=== PATIENT | female | born 1940 | race Caucasian/White ===

== ENCOUNTER 2016-04-24 13:36 | Inpatient (IN) | payer MEDICARE, MEDICAID ==
[~2016-04-24] VITALS: Ht 165.1 cm; Wt 87.0 kg
[~2016-04-24 13:36] MED LIST: ABIL5TAB6 PO; AMLO5 PO; ASPI81TA11 PO; BACT800T5 PO; BENZ2TAB PO; BUSP5TAB PO; DIVA125C PO; HALO2TAB PO; HALO5INJ4 IM; LEVO25TA4 PO; LEXA10TA PO; LEXA20TA PO; LORA-373 PO; MEMA28CA PO; PANT20 PO; RISP0.5T28 PO; RISPM2 PO; SERO50TA PO; ZOFR4TAB PO
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
[2016-04-24 14:07] VITALS: BP 123/59; PULSE 84; RESP 18; TEMP 98.4; O2SAT 99
[2016-04-24 14:11] VITALS: BP 123/59; PULSE 84; RESP 18; TEMP 98.4; O2SAT 99
[2016-04-24 14:39] LABS: AUTOMATED NEUTROPHIL # 1.8 TH/MM3 (1.8-7.7); BASOPHIL % 0.9 % (0.0-2.0); EOSINOPHIL % 1.5 % (0.0-4.0); HEMATOCRIT 32.8 % (35.0-46.0); HEMO FLAGS DIFF FINAL; LYMPH % 26.6 % (9.0-44.0); LYMPHOCYTE # 0.8 TH/MM3 (1.0-4.8); MEAN CELL VOLUME 91.8 FL (80.0-100.0); MEAN CORPUSCULAR HEMOGLOBIN 31.3 PG (27.0-34.0); MONO % 14.1 % (0.0-8.0); NEUT % 56.9 % (16.0-70.0); PLATELET COUNT 204 TH/MM3 (150-450); RED BLOOD COUNT 3.57 MIL/MM3 (4.00-5.30); RED CELL DISTRIBUTION WIDTH 12.8 % (11.6-17.2); WHITE BLOOD COUNT 3.2 TH/MM3 (4.0-11.0)
[2016-04-24 14:55] LABS: ANION GAP 7 MEQ/L (5-15); BICARBONATE 24.8 MEQ/L (21.0-32.0); BLOOD UREA NITROGEN 19 MG/DL (7-18); CHLORIDE 107 MEQ/L (98-107); GLOMERULAR FILTRATION RATE 39 ML/MIN (>89); POTASSIUM 4.4 MEQ/L (3.5-5.1); SODIUM (NA) 139 MEQ/L (136-145)
[2016-04-24 15:12] LABS: BACTERIA, URINE OCC /hpf; BLOOD, URINE NEG (NEG); COMMENT (UR) CULT NOT INDICATED; CULTURE IF INDICATED CULT NOT INDICATED; GLUCOSE,URINE NEG (NEG); KETONE, URINE NEG (NEG); MUCUS URINE FEW /lpf (OCC); NITRITE,URINE NEG (NEG); SQUAMOUS EPITHELIAL CELL URINE 1 /hpf (0-5); URINE COLOR LIGHT-YELLOW (YELLW/STRAW)
[2016-04-24 15:16] LABS: AMPHETAMINE, URINE NEG (NEG); BARBITURATES, URINE NEG (NEG); COCAINE, URINE NEG (NEG)
[2016-04-24 17:55] VITALS: BP 160/76; PULSE 80; RESP 18; TEMP 98.3; O2SAT 98
[2016-04-24] MEDS ORDERED: diphenhydrAMINE HCL 50 MG/ML VIAL ONE (21:04)
[2016-04-24] MEDS ORDERED: HALOPERIDOL LACTATE 5 MG/ML AMP ONE (21:04)
[2016-04-24] MEDS ORDERED: diphenhydrAMINE HCL 50 MG/ML VIAL IM ONE (21:30)
[2016-04-24] MEDS ORDERED: HALOPERIDOL LACTATE 5 MG/ML AMP IM ONE (21:30)
[2016-04-24] MEDS ORDERED: diphenhydrAMINE HCL 50 MG/ML VIAL - HS PRN IM (22:00)
[2016-04-24] MEDS ORDERED: ACETAMINOPHEN 325 MG TAB PO PRN (22:00)
[2016-04-24] MEDS ORDERED: ALUMINUM/MAGNESIUM/SIMETH 30 ML CUP PO PRN (22:00)
[2016-04-24] MEDS ORDERED: diphenhydrAMINE HCL 50 MG CAP PO PRN (22:00)
[2016-04-24] MEDS ORDERED: diphenhydrAMINE HCL 50 MG/ML VIAL IM PRN (22:00)
[2016-04-24] MEDS ORDERED: MAGNESIUM HYDROXIDE SUSP 30 ML CUP PO PRN (22:00)
[2016-04-24 22:05] VITALS: BP 166/85; PULSE 82; RESP 22; TEMP 98; O2SAT 97
[2016-04-25 05:47] VITALS: BP 144/70; PULSE 72; RESP 17; TEMP 98.5; O2SAT 97
[2016-04-25] MEDS: LEVOTHYROXINE SODIUM 25 MCG TAB PO SCH (06:52)
[2016-04-25 08:49] LABS: ANION GAP 6 MEQ/L (5-15); BICARBONATE 26.7 MEQ/L (21.0-32.0); BLOOD UREA NITROGEN 16 MG/DL (7-18); CHLORIDE 107 MEQ/L (98-107); GLOMERULAR FILTRATION RATE 43 ML/MIN (>89); POTASSIUM 4.6 MEQ/L (3.5-5.1); SODIUM (NA) 140 MEQ/L (136-145)
[2016-04-25 08:52] LABS: HDL CHOLESTEROL 52.2 MG/DL (40.0-60.0); LDL CHOLESTEROL 59 MG/DL (0-99)
[2016-04-25] MEDS ORDERED: risperiDONE 1 MG TAB PO SCH (09:00)
[2016-04-25] MEDS: REMOVE OLD NICOTINE PATCH T-DERMAL SCH (09:00)
[2016-04-25] MEDS: NICOTINE 21 MG/24 HR PATCH T-DERMAL SCH (09:00)
[2016-04-25] MEDS ORDERED: HALOPERIDOL 2 MG TAB PO SCH (09:00)
[2016-04-25] MEDS: amLODIPine BESYLATE 5 MG TAB PO SCH (09:38)
[2016-04-25] MEDS: ESCITALOPRAM OXALATE 20 MG TAB PO SCH (09:39)
[2016-04-25] MEDS: PANTOPRAZOLE SOD 20 MG DELAYED RELEASE TAB PO SCH (09:39)
[2016-04-25] MEDS: ASPIRIN EC 81 MG TABEC PO SCH (09:39)
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
--- NOTE | 2016-04-25 14:40 | PD.CONS ---
[facility] Reason for Consult Medical management regarding diabetes Primary Care Physician Unknown Diagnoses: History of Present Illness This is a 75-year-old female patient with a past medical history which includes schizophrenia, dementia, hypertension chronic kidney disease and hypothyroidism. Patient is currently alert and oriented to person only therefore information gathered from patient as well as prior computerized charting. Patient is currently in inpatient psychiatric center we have been consulted for assistance with medical management including diabetes. Last hemoglobin A1c 03/26/2016 of 6.1 indicating the patient is prediabetic. Patient is not on any diabetic medications at this time. Patient appears to be in no acute distress and offers no complaints at this time. Patient denies shortness of breath chest pain nausea vomiting diarrhea constipation fevers or chills. Review of Systems ROS Limitations: Psychotic, Poor Historian Other All systems reviewed and negative patient is unreliable as she has dementia is a poor historian and is alert and oriented to person only Past Family Social History Allergies: Coded Allergies: No Known Allergies (Unverified , 04/24/16) Past Medical History schizophrenia, dementia, hypertension chronic kidney disease and hypothyroidism Past Surgical History Tubal ligation Reported Medications Risperdal M-Tab (Risperidone) 0.5 Mg Tab 0.5 Mg PO HS Risperdal M-Tab (Risperidone) 2 Mg Tab 2 Mg PO BID Protonix (Pantoprazole Sodium) 20 Mg Tab 20 Mg PO DAILY Aspirin EC (Aspirin) 81 Mg Tabdr 81 Mg PO DAILY Norvasc (Amlodipine Besylate) 5 Mg Tab 5 Mg PO DAILY Seroquel (Quetiapine Fumarate) 50 Mg Tab 50 Mg PO HS Lexapro (Escitalopram Oxalate) 20 Mg Tab 20 Mg PO DAILY Haloperidol Inj (Haloperidol Lactate) 5 Mg/Ml Inj 2 Mg IM Q12HR PRN Haloperidol 2 Mg Tab 2 Mg PO BID Levothyroxine (Levothyroxine Sodium) 25 Mcg Tab 25 Mcg PO DAILY Active Ordered Medications Current Medications Medications (Trade) Dose Ordered Sig/Michelle Route Start Time Stop Time Status Last Admin (Synthroid) 25 mcg DAILY@0600 PO 04/25/16 06:00 04/25/16 06:52 (Lexapro) 20 mg DAILY PO 04/25/16 09:00 04/25/16 09:39 (Ecotrin Ec) 81 mg DAILY PO 04/25/16 09:00 12/20/16 09:39 (Protonix) 20 mg DAILY PO 04/25/16 09:00 04/25/16 09:39 (Norvasc) 5 mg DAILY PO 04/25/16 09:00 04/25/16 09:38 (Ativan) 0.5 mg Q12H PRN PO 04/24/16 22:00 (Ativan Inj) 0.5 mg Q12H PRN IM 04/24/16 22:00 (Benadryl) 50 mg HS PRN PO 04/24/16 22:00 (Desyrel) 50 mg HS PRN PO 04/24/16 22:00 (Tylenol) 650 mg Q4H PRN PO 04/24/16 22:00 (Habitrol 21 Mg Patch.24 Hr) 1 patch DAILY T-DERMAL 04/25/16 09:00 Miscellaneous Information 1 DAILY T-DERMAL 04/25/16 09:00 (SEROquel) 100 mg HS PO 04/25/16 21:00 (risperDAL) 3 mg BID PO 04/25/16 21:00 Family History No documented family history patient is unable to recall any family history including diabetes CAD cancers Social History No reported EtOH use tobacco use or illicit drug use Physical Exam Vital Signs Vital Signs Date Time Temp Pulse Resp B/P Pulse Ox O2 Delivery O2 Flow Rate FiO2 04/25/16 05:47 98.5 72 17 144/70 97 04/24/16 22:05 98.0 82 22 166/85 97 04/24/16 17:55 98.3 80 18 160/76 98 Room Air Physical Exam GENERAL: This is a well-nourished, well-developed patient, in no apparent distress. Alert and oriented to person only SKIN: No rashes, ecchymoses or lesions. Cool and dry. HEAD: Atraumatic. Normocephalic. No temporal or scalp tenderness. EYES: Extraocular motions intact. No scleral icterus. No injection or drainage. ENT: Nose without bleeding, purulent drainage or septal hematoma. Throat without erythema, tonsillar hypertrophy or exudate. Uvula midline. Airway patent. NECK: Trachea midline. No JVD or lymphadenopathy. Supple, nontender, no meningeal signs. CARDIOVASCULAR: Regular rate and rhythm without murmurs, gallops, or rubs. RESPIRATORY: Clear to auscultation. Breath sounds equal bilaterally. No wheezes , rales, or rhonchi. GASTROINTESTINAL: Abdomen soft, non-tender, nondistended. No guarding. MUSCULOSKELETAL: Extremities without clubbing, cyanosis, or edema. No joint tenderness, effusion, or edema noted. No calf tenderness. Negative Homans sign bilaterally. NEUROLOGICAL: Awake and alert. N to person only Motor and sensory grossly within normal limits. Five out of 5 muscle strength in all muscle groups. Normal speech. Laboratory Laboratory Tests Test 04/24/16 04/25/16 14:45 06:40 Urine Color LIGHT-YELLOW Urine Turbidity CLEAR Urine pH 6.0 Urine Specific [place] 1.009 Urine Protein NEG Urine Glucose (UA) NEG Urine Ketones NEG Urine Occult Blood NEG Urine Nitrite NEG Urine Bilirubin NEG Urine Urobilinogen LESS THAN 2.0 Urine Leukocyte Esterase TRACE Urine RBC LESS THAN 1 Urine WBC 3 Urine Squamous Epithelial 1 Cells Urine Bacteria OCC Urine Mucus FEW Microscopic Urinalysis Comment CULT NOT INDICATED Urine Opiates Screen NEG Urine Barbiturates Screen NEG Urine Amphetamines Screen NEG Urine Benzodiazepines Screen NEG Urine Cocaine Screen NEG Urine Cannabinoids Screen NEG Sodium Level 140 Potassium Level 4.6 Chloride Level 107 Carbon Dioxide Level 26.7 Anion Gap 6 Blood Urea Nitrogen 16 Creatinine 1.22 Estimat Glomerular Filtration 43 Rate Random Glucose 172 Calcium Level 9.3 Triglycerides Level 62 Cholesterol Level 124 LDL Cholesterol 59 HDL Cholesterol 52.2 Cholesterol/HDL Ratio 2.37 Thyroid Stimulating Hormone 1.520 3rd Gen Result Diagram: 04/24/16 1415 04/25/16 0640 Assessment and Plan Assessment and Plan This is a 75-year-old female patient with a past medical history which includes schizophrenia, dementia, hypertension chronic kidney disease and hypothyroidism. Patient is currently alert and oriented to person only therefore information gathered from patient as well as prior computerized charting. Patient is currently in inpatient psychiatric center we have been consulted for assistance with medical management including diabetes. Last hemoglobin A1c 03/26/2016 of 6.1 indicating the patient has prediabetic and not yet diabetic. Patient is not on any diabetic medications at this time. Prediabetes hemoglobin A1c 03/26/2016 Diabetic diet recommend healthy diabetic diet no further interventions at this time Patient can follow-up with her primary care provider outpatient Hypertension continue patient's home medication of Norvasc Hypothyroidism continue patient's home medication of Synthroid Leukopenia white blood cell count 3.2 and normocytic normochromic anemia Will recheck CBC in a.m. Patient is afebrile DVT prophylaxis patient is ambulatory Plan of care discussed with patient as well as nurse Thank you for the consultation and for allowing us to participate in the care of this patient. Written by Myrna Adkins, acting as scribe for Dr. Crawford on 04/25/16 at 14:38. The documentation accurately reflects the work performed [id number] by me on 04/25/16 at 1438 Myrna Adkins Apr 25, 2016 14:40 Zenon Crawford MD Apr 25, 2016 15:39
--- NOTE | 2016-04-25 15:04 | EKG ---
Date Performed: 04/24/2016 Time Performed: 15:39:07 PTAGE: 75 years EKG: Sinus rhythm RIGHT BUNDLE BRANCH BLOCK LEFT ANTERIOR FASCICULAR BLOCK MODERATE VOLTAGE CRITERIA FOR LVH, CONSIDER NORMAL VARIANT POSSIBLE SEPTAL MYOCARDIAL INFARCTION Since previous tracing, no significant change n oted ABNORMAL ECG PREVIOUS TRACING : 03/24/2016 18.19 DOCTOR: Vel Goff Interpretating Date/Time 04/25/2016 15:02:24
[2016-04-25 17:05] LABS: HEMOGLOBIN A1a 1.1 %; HEMOGLOBIN A1b 0.5 %; HEMOGLOBIN Ao 53.4 %; HEMOGLOBIN LA1C 1.4 %; HEMOGLOBIN P3 2.6 %
--- NOTE | 2016-04-25 17:26 | PD.CONS ---
Provisional Diagnosis Admission Date Apr 24, 2016 at 21:33 [place] I. 1. Dementia with behavioral disturbance 2. History of schizophrenia [place] II. Deferred [place] V. GAF is 35 presently History of Present Illness Service Psychiatry Consult Requested By Dr. Perez Reason for Consult Second opinion Primary Care Physician Unknown HPI From Dr. Perez's H&P: Patient is a 75-year-old Afro-Syrian female well known to us from prior hospitalization here 03/25/16 through 04/17/16 under visit [id number]. Comes here under Bellamy act dated 04/24/16 signed a and Willian boucher PhD stating Juno is experiencing visual hallucinations which are significantly impacting her functioning and putting both herself and others at risk she is demonstrating agitated internal stimuli and lashing out physically running through the unit and threatening both actual residents and imaginary people this is also clearly distressing for her she requires a higher level of care to contain her keep her safe and stabilize her meds. Patient seen screened in the ED urine toxicology negative blood alcohol level negative. At the present time patient sitting quietly in the room on 2500, nurse Rose present throughout session patient is calm diffusely confused, did not recognize nurse Tavarez or myself though we care for her with her prior admission. She is markedly disorganized. Does denies suicidality does deny voices or visions but at times appears to be responding to internal stimuli it appears her med reconciliation does not accurately represent her discharge medications. I have reviewed them and adjusted the medications. In any event at this time I feel patient does meet criteria for continued inpatient psychiatric hospitalization of the Bellamy act thus I will do first opinion requests second opinion, I also feel patient does not have capacity to make appropriate decisions concerning her care thus I' ll ask for healthcare surrogate and a guardian advocate. We will also in hospitalist monitor her medical condition. Hopeless to be fairly short stay and if he cannot return her to her prior placement we do need to look for a secure placement for this lady On my examination today: Patient seen and examined. Chart reviewed. Case discussed with nursing staff. On my examination today, patient presents as fairly disorganized. She says that she came into the hospital because "I have work to do. I have to get my bills paid. I got it all done and they released me." She does admit that she was "a little upset and I started walking" at the facility, but nursing staff tells me she has been a behavioral problem here. She denies any audiovisual hallucinations but appears internally preoccupied. She denies any suicidal or homicidal thoughts. She maintains she has been adherent with psychotropic medications and denies side effects. I am unable to obtain any past psychiatric, family, chemical dependency or social history from this patient because of her degree of thought disorganization or present. Review of Systems ROS Limitations: Psychotic, Poor Historian Other No physical complaints today. Past Family Social History Coded Allergies: No Known Allergies (Unverified , 04/24/16) Past Medical History See EMR Active Scripts Risperidone Odt (Risperdal M-Tab)0.5 Mg Tab0.5 Mg PO HS #30 TAB Ref 0 Prov:Alphonso Perez MD 04/17/16 Risperidone Odt (Risperdal M-Tab)2 Mg Tab2 Mg PO BID #60 TAB Ref 0 Prov:Alphonso Perez MD 04/17/16 Pantoprazole (Protonix)20 Mg Tab20 Mg PO DAILY #30 TAB Ref 0 Prov:Alphonso Perez MD 04/17/[address] (Aspirin EC)81 Mg Tabdr81 Mg PO DAILY #30 TAB Ref 0 Prov:Alphonso Perez MD 04/17/16 Amlodipine (Norvasc)5 Mg Tab5 Mg PO DAILY #30 TAB Ref 0 Prov:Alphonso Perez MD 04/17/16 Quetiapine (Seroquel)50 Mg Tab50 Mg PO HS #30 TAB Ref 0 Prov:Alphonso Perez MD 04/14/16 Escitalopram (Lexapro)20 Mg Tab20 Mg PO DAILY #30 TAB Ref 0 Prov:Alphonso Perez MD 04/14/16 Reported Medications Haloperidol Inj 5 Mg/Ml Inj2 Mg IM Q12HR PRN (SEVERE AGITATION) 03/24/16 Haloperidol 2 Mg Tab2 Mg PO BID Ref 0 03/24/16 Levothyroxine 25 Mcg Tab25 Mcg PO DAILY #30 TAB Ref 0 03/24/16 Discontinued Reported Medications Aripiprazole (Abilify)5 Mg Tab5 Mg PO DAILY #30 TAB Ref 0 03/24/16 Benztropine 2 Mg Tab2 Mg PO BID #60 TAB Ref 0 03/24/16 Ondansetron (Zofran)4 Mg Tab4 Mg PO Q8HR PRN (NAUSEA OR VOMITING) Ref 0 03/24/16 Memantine Er (Namenda Xr)28 Mg Caper28 Mg PO DAILY #30 CAP Ref 0 03/24/16 Lorazepam 0.5 Mg Tab0.5 Mg PO Q8H PRN (ANXIETY) Ref 0 03/24/16 Divalproex Sprinkles (Depakote Sprinkles)125 mg Tch288 Mg PO TID #60 CAP Ref 0 03/24/16 Escitalopram (Lexapro)10 Mg Tab10 Mg PO HS #30 TAB Ref 0 03/24/16 Discontinued Scripts Sulfamethoxazole-Trimethoprim (Bactrim DS)800-160 Mg Tab1 Tab PO Q12HR #14 TAB Ref 0 Prov:Alphonso Perez MD 04/17/16 Levothyroxine 25 Mcg Tab25 Mcg PO DAILY@0600 #30 TAB Ref 0 Prov:Alphonso Perez MD 04/17/16 Buspirone 5 Mg Tab5 Mg PO TID #90 TAB Ref 0 Prov:Alphonso Perez MD 04/14/16 Current Medications Medications (Trade) Dose Ordered Sig/Michelle Route Start Time Stop Time Status Last Admin (Synthroid) 25 mcg DAILY@0600 PO 04/25/16 06:00 04/25/16 06:52 (Lexapro) 20 mg DAILY PO 04/25/16 09:00 04/25/16 09:39 (Ecotrin Ec) 81 mg DAILY PO 04/25/16 09:00 04/25/16 09:39 (Protonix) 20 mg DAILY PO 04/25/16 09:00 04/25/16 09:39 (Norvasc) 5 mg DAILY PO 04/25/16 09:00 04/25/16 09:38 (Ativan) 0.5 mg Q12H PRN PO 04/24/16 22:00 (Ativan Inj) 0.5 mg Q12H PRN IM 04/24/16 22:00 (Benadryl) 50 mg HS PRN PO 04/24/16 22:00 (Desyrel) 50 mg HS PRN PO 04/24/16 22:00 (Tylenol) 650 mg Q4H PRN PO 04/24/16 22:00 (Habitrol 21 Mg Patch.24 Hr) 1 patch DAILY T-DERMAL 04/25/16 09:00 Miscellaneous Information 1 DAILY T-DERMAL 04/25/16 09:00 (SEROquel) 100 mg HS PO 04/25/16 21:00 (risperDAL) 3 mg BID PO 04/25/16 21:00 Family History See above Social History See above Patient's Strengths (min. 2) In monitored setting. Verbally fluent. Physical Exam A physical examination was completed in the emergency room by the ER staff and the patient was medically cleared. On my examination today, the patient appears to be no acute physical distress. Some resting dyskinesias, but no other abnormal motor movements noted. Labs and vital signs reviewed. Vital Signs Vital Signs Date Time Temp Pulse Resp B/P Pulse Ox O2 Delivery O2 Flow Rate FiO2 04/25/16 05:47 98.5 72 17 144/70 97 04/24/16 17:55 Room Air Lab Results Item Value Date Time White Blood Count 3.2 TH/MM3 L 04/24/16 1415 Hemoglobin 11.2 GM/DL L 04/24/16 1415 Platelet Count 204 TH/MM3 04/24/16 1415 Sodium Level 140 MEQ/L 04/25/16 0640 Potassium Level 4.6 MEQ/L 04/25/16 0640 Chloride Level 107 MEQ/L 04/25/16 0640 Blood Urea Nitrogen 16 MG/DL 04/25/16 0640 Creatinine 1.22 MG/DL H 04/25/16 0640 Toxicology negative. Mental Status Examination Patient is in hospital gown. She is somewhat disheveled. She is awake and alert and oriented to person. She does have some resting dyskinesias but otherwise no abnormal motor movements noted. Speech is rambling and disjointed. Language and fund of knowledge are difficult to assess given degree of thought disorganization but seem appropriate for age. Mood is fair, affect is flat. Thought process disorganized. Associations somewhat loose. Denies AVH but appears internally preoccupied. No amauri delusional material. Denies SI or HI but it is unclear if she is reliable to contract for safety in her present state. Insight and judgment are poor. Assessment & Plan Problem List: (1) Dementia with behavioral disturbance ICD Code: F03.91 Assessment & Plan Given the circumstances of patient's initial presentation and her presentation on my examination today, I concur with Dr. Perez that the patient meets criteria for involuntary psychiatric hospitalization under the Bellamy act. I completed the second opinion paperwork. Further care as per Dr. Perez. Signing off. Thank you very much for this consultation. Discharge Planning Per Dr. Perez Request HC Surrog/Guard Advoc?: Yes Problem Qualifiers (1) Dementia with behavioral disturbance: Qualified Code: F03.91 - Dementia with behavioral disturbance, unspecified dementia type Dev Solis MD Apr 25, 2016 17:26
[2016-04-25] MEDS ORDERED: QUEtiapine FUMARATE 25 MG TAB PO SCH (21:00)
[2016-04-25] MEDS: risperiDONE 3 MG TAB PO SCH (21:03)
[2016-04-25] MEDS: QUEtiapine FUMARATE 100 MG TAB PO SCH (21:04)
[2016-04-25] MEDS: traZODone HCL 50 MG TAB PO PRN (22:22)
[2016-04-25] MEDS: diphenhydrAMINE HCL 50 MG CAP - HS PRN PO (22:22)
[2016-04-25] MEDS: LORazepam 0.5 MG TAB age > 65 yrs PO PRN (22:22)
[2016-04-26 06:05] VITALS: BP 143/63; PULSE 64; RESP 18; TEMP 98.6; O2SAT 98
[2016-04-26] MEDS: LEVOTHYROXINE SODIUM 25 MCG TAB PO SCH (06:34)
[2016-04-26 08:12] LABS: BICARBONATE 26.1 MEQ/L (21.0-32.0); POTASSIUM 4.4 MEQ/L (3.5-5.1)
[2016-04-26 08:17] LABS: AUTOMATED NEUTROPHIL # 1.1 TH/MM3 (1.8-7.7); BASOPHIL % 0.5 % (0.0-2.0); EOSINOPHIL # 0.1 TH/MM3 (0-0.4); EOSINOPHIL % 2.7 % (0.0-4.0); HEMATOCRIT 31.2 % (35.0-46.0); HEMO FLAGS DIFF FINAL; LYMPH % 37.6 % (9.0-44.0); MEAN CELL VOLUME 92.7 FL (80.0-100.0); MEAN CORPUSCULAR HEMOGLOBIN 30.9 PG (27.0-34.0); MEAN CORPUSCULAR HGB CONC 33.3 % (32.0-36.0); MONO % 15.5 % (0.0-8.0); NEUT % 43.7 % (16.0-70.0); PLATELET COUNT 205 TH/MM3 (150-450); RED BLOOD COUNT 3.37 MIL/MM3 (4.00-5.30); RED CELL DISTRIBUTION WIDTH 12.9 % (11.6-17.2); WHITE BLOOD COUNT 2.6 TH/MM3 (4.0-11.0)
[2016-04-26] MEDS: NICOTINE 21 MG/24 HR PATCH T-DERMAL SCH (09:00)
[2016-04-26] MEDS: REMOVE OLD NICOTINE PATCH T-DERMAL SCH (09:00)
[2016-04-26] MEDS: amLODIPine BESYLATE 5 MG TAB PO SCH (09:44)
[2016-04-26] MEDS: PANTOPRAZOLE SOD 20 MG DELAYED RELEASE TAB PO SCH (09:44)
[2016-04-26] MEDS: ASPIRIN EC 81 MG TABEC PO SCH (09:44)
[2016-04-26] MEDS: risperiDONE 3 MG TAB PO SCH ×2 (09:44→21:39)
[2016-04-26] MEDS: ESCITALOPRAM OXALATE 20 MG TAB PO SCH (09:44)
--- NOTE | 2016-04-26 13:32 | HHI.PYPN ---
Subjective Remarks Patient seen in day room floor staff, patient continues diffusely confused disoriented at times somewhat labile and intrusive, patient calm with me, compliant medications Review of Systems Other No change since 04/25 Objective Alert: Yes [place]: Person Mood: Agitated, Calm Affect: Restricted Memory Intact: Comment (very poor) Hallucinations: Other (at times appears to be responding to internal stimuli) Delusions: No Delusion Type: Other (vigilant) Suicidal: Ideation (denies) Homicidal: Ideation (denies ) Insight/Judgement Very poor Labs Test 04/26/16 04/26/16 06:08 06:28 White Blood Count 2.6 TH/MM3 Red Blood Count 3.37 MIL/MM3 Hemoglobin 10.4 GM/DL Hematocrit 31.2 % Mean Corpuscular Volume 92.7 FL Mean Corpuscular Hemoglobin 30.9 PG Mean Corpuscular Hemoglobin 33.3 % Concent Red Cell Distribution Width 12.9 % Platelet Count 205 TH/MM3 Mean Platelet Volume 8.5 FL Neutrophils (%) (Auto) 43.7 % Lymphocytes (%) (Auto) 37.6 % Monocytes (%) (Auto) 15.5 % Eosinophils (%) (Auto) 2.7 % Basophils (%) (Auto) 0.5 % Neutrophils # (Auto) 1.1 TH/MM3 Lymphocytes # (Auto) 1.0 TH/MM3 Monocytes # (Auto) 0.4 TH/MM3 Eosinophils # (Auto) 0.1 TH/MM3 Basophils # (Auto) 0.0 TH/MM3 CBC Comment DIFF FINAL Differential Comment Sodium Level 140 MEQ/L Potassium Level 4.4 MEQ/L Chloride Level 106 MEQ/L Carbon Dioxide Level 26.1 MEQ/L Anion Gap 8 MEQ/L Blood Urea Nitrogen 17 MG/DL Creatinine 1.23 MG/DL Estimat Glomerular Filtration 43 ML/MIN Rate Random Glucose 163 MG/DL Calcium Level 9.1 MG/DL Magnesium Level 2.0 MG/DL Vitals/IOs Vital Signs Date Time Temp Pulse Resp B/P Pulse Ox O2 Delivery O2 Flow Rate FiO2 04/26/16 06:05 98.6 64 18 143/63 98 04/24/16 17:55 Room Air Intake and Output 04/25/16 04/25/16 04/25/16 07:59 15:59 23:59 Intake Total 0 ml 480 ml 480 ml Balance 0 ml 480 ml 480 ml Assessment & Plan Problem List: (1) Dementia with behavioral disturbance ICD Code: F03.91 Assessment & Plan Estimated LOS: days patient continues confused disoriented, at times somewhat labile. Compliant medications Justification for Cont. Inpt. Patient would severely decompensated a lower level of care Discharge Planning To be determined Request HC Surrog/Guard Advoc?: Yes Problem Qualifiers (1) Dementia with behavioral disturbance: Qualified Code: F03.91 - Dementia with behavioral disturbance, unspecified dementia type Alphonso Perez MD Apr 26, 2016 13:32
[2016-04-26 18:00] VITALS: BP 144/65; PULSE 72; RESP 16; TEMP 98.7; O2SAT 98
[2016-04-26] MEDS: QUEtiapine FUMARATE 100 MG TAB PO SCH (21:40)
[2016-04-26] MEDS: LORazepam 0.5 MG TAB age > 65 yrs PO PRN (23:41)
[2016-04-26] MEDS: diphenhydrAMINE HCL 50 MG CAP - HS PRN PO (23:42)
[2016-04-26] MEDS: traZODone HCL 50 MG TAB PO PRN (23:42)
[2016-04-27] MEDS: LEVOTHYROXINE SODIUM 25 MCG TAB PO SCH (05:57)
[2016-04-27 06:00] VITALS: BP 131/60; PULSE 70; RESP 16; TEMP 97.9; O2SAT 95
[2016-04-27] MEDS: NICOTINE 21 MG/24 HR PATCH T-DERMAL SCH (09:00)
[2016-04-27] MEDS: REMOVE OLD NICOTINE PATCH T-DERMAL SCH (09:00)
[2016-04-27] MEDS: PANTOPRAZOLE SOD 20 MG DELAYED RELEASE TAB PO SCH (09:55)
[2016-04-27] MEDS: risperiDONE 3 MG TAB PO SCH ×2 (09:55→20:25)
[2016-04-27] MEDS: amLODIPine BESYLATE 5 MG TAB PO SCH (09:55)
[2016-04-27] MEDS: ESCITALOPRAM OXALATE 20 MG TAB PO SCH (09:55)
[2016-04-27] MEDS: ASPIRIN EC 81 MG TABEC PO SCH (09:55)
--- NOTE | 2016-04-27 14:03 | HHI.PYPN ---
Subjective Remarks Patient seen in room with floor staff, patient showing no behavior problems with me at this time, continues markedly confused and disorganized does not remember me from prior visit. Compliant medication. For now continue treatment Review of Systems Other No change since 04/25 Objective Alert: Yes [place]: Person Mood: Agitated, Calm Affect: Restricted Memory Intact: Comment (very poor) Hallucinations: Other (at times appears to be responding to internal stimuli) Delusions: No Delusion Type: Other (vigilant) Suicidal: Ideation (denies) Homicidal: Ideation (denies ) Insight/Judgement Very poor Vitals/IOs Vital Signs Date Time Temp Pulse Resp B/P Pulse Ox O2 Delivery O2 Flow Rate FiO2 04/27/16 06:00 97.9 70 16 131/60 95 04/24/16 17:55 Room Air Intake and Output 04/26/16 04/26/16 04/27/16 08:00 16:00 00:00 Intake Total 0 ml 360 ml 840 ml Balance 0 ml 360 ml 840 ml Assessment & Plan Problem List: (1) Dementia with behavioral disturbance ICD Code: F03.91 Assessment & Plan Estimated LOS: days patient continues confused demented, that this type no behavioral problems, compliant medications Justification for Cont. Inpt. At this time the patient would severely decompensated a lower level of care Discharge Planning To be determined Request HC Surrog/Guard Advoc?: Yes Problem Qualifiers (1) Dementia with behavioral disturbance: Qualified Code: F03.91 - Dementia with behavioral disturbance, unspecified dementia type Alphonso Perez MD Apr 27, 2016 14:03
[2016-04-27 18:24] VITALS: BP 170/77; PULSE 92; RESP 18; TEMP 97.8; O2SAT 96
[2016-04-27] MEDS: traZODone HCL 50 MG TAB PO PRN (20:25)
[2016-04-27] MEDS: LORazepam 0.5 MG TAB age > 65 yrs PO PRN (20:25)
[2016-04-27] MEDS: QUEtiapine FUMARATE 100 MG TAB PO SCH (20:26)
[2016-04-28] MEDS: LEVOTHYROXINE SODIUM 25 MCG TAB PO SCH (05:16)
[2016-04-28 05:52] VITALS: BP 156/60; PULSE 84; RESP 16; TEMP 97.3; O2SAT 97
[2016-04-28 07:35] LABS: AUTOMATED NEUTROPHIL # 1.4 TH/MM3 (1.8-7.7); BASOPHIL % 0.7 % (0.0-2.0); EOSINOPHIL # 0.1 TH/MM3 (0-0.4); EOSINOPHIL % 2.8 % (0.0-4.0); HEMATOCRIT 30.3 % (35.0-46.0); HEMO FLAGS DIFF FINAL; LYMPH % 34.6 % (9.0-44.0); MEAN CELL VOLUME 90.9 FL (80.0-100.0); MEAN CORPUSCULAR HGB CONC 34.1 % (32.0-36.0); MONO % 14.9 % (0.0-8.0); PLATELET COUNT 219 TH/MM3 (150-450); RED BLOOD COUNT 3.34 MIL/MM3 (4.00-5.30); RED CELL DISTRIBUTION WIDTH 12.7 % (11.6-17.2)
[2016-04-28] MEDS: REMOVE OLD NICOTINE PATCH T-DERMAL SCH (08:52)
[2016-04-28] MEDS: ASPIRIN EC 81 MG TABEC PO SCH (08:52)
[2016-04-28] MEDS: amLODIPine BESYLATE 5 MG TAB PO SCH (08:52)
[2016-04-28] MEDS: ESCITALOPRAM OXALATE 20 MG TAB PO SCH (08:52)
[2016-04-28] MEDS: risperiDONE 3 MG TAB PO SCH ×2 (08:52→21:50)
[2016-04-28] MEDS: LORazepam 0.5 MG TAB age > 65 yrs PO PRN ×2 (08:52→23:03)
[2016-04-28] MEDS: PANTOPRAZOLE SOD 20 MG DELAYED RELEASE TAB PO SCH (08:52)
[2016-04-28] MEDS: NICOTINE 21 MG/24 HR PATCH T-DERMAL SCH (08:53)
[2016-04-28] MEDS ORDERED: GLUCAGON 1 MG/ML VIAL OTHER PRN (09:30)
[2016-04-28] MEDS ORDERED: DEXTROSE 50% IN WATER 50 ML VIAL(D50) IV PUSH PRN (09:30)
[2016-04-28] MEDS: INSULIN ASPART SUPPLEMENTAL SCALE SQ SCH ×3 (11:22→20:14)
--- NOTE | 2016-04-28 14:01 | HHI.PYPN ---
Subjective Remarks Patient seen in her room with nurse Margaret, patient continues diffusely confused disoriented. Continues to isolate. But compliant medications. Patient does need redirection but accepts that without difficulty. For now continue medication, observation assessment Review of Systems Other No change since 04/25 Objective Alert: Yes [place]: Person Mood: Agitated, Calm Affect: Restricted Memory Intact: Comment (very poor) Hallucinations: Other (at times appears to be responding to internal stimuli) Delusions: No Delusion Type: Other (vigilant) Suicidal: Ideation (denies) Homicidal: Ideation (denies ) Insight/Judgement Very poor Labs Test 04/28/16 05:58 White Blood Count 3.0 TH/MM3 Red Blood Count 3.34 MIL/MM3 Hemoglobin 10.3 GM/DL Hematocrit 30.3 % Mean Corpuscular Volume 90.9 FL Mean Corpuscular Hemoglobin 31.0 PG Mean Corpuscular Hemoglobin 34.1 % Concent Red Cell Distribution Width 12.7 % Platelet Count 219 TH/MM3 Mean Platelet Volume 8.6 FL Neutrophils (%) (Auto) 47.0 % Lymphocytes (%) (Auto) 34.6 % Monocytes (%) (Auto) 14.9 % Eosinophils (%) (Auto) 2.8 % Basophils (%) (Auto) 0.7 % Neutrophils # (Auto) 1.4 TH/MM3 Lymphocytes # (Auto) 1.0 TH/MM3 Monocytes # (Auto) 0.4 TH/MM3 Eosinophils # (Auto) 0.1 TH/MM3 Basophils # (Auto) 0.0 TH/MM3 CBC Comment DIFF FINAL Differential Comment Vitals/IOs Vital Signs Date Time Temp Pulse Resp B/P Pulse Ox O2 Delivery O2 Flow Rate FiO2 04/28/16 05:52 97.3 84 16 156/60 97 04/24/16 17:55 Room Air Intake and Output 04/27/16 04/27/16 04/28/16 08:00 16:00 00:00 Intake Total 840 ml 1080 ml Balance 840 ml 1080 ml Assessment & Plan Problem List: (1) Dementia with behavioral disturbance ICD Code: F03.91 Assessment & Plan Estimated LOS: days patient continues demented confused, needing assistance at times, continues to isolate, heavy little interaction with other patients or staff compliant medications, Justification for Cont. Inpt. At this time the patient was severely decompensate at a lower level of care Discharge Planning To be determined Request HC Surrog/Guard Advoc?: Yes Problem Qualifiers (1) Dementia with behavioral disturbance: Qualified Code: F03.91 - Dementia with behavioral disturbance, unspecified dementia type Alphonso Perez MD Apr 28, 2016 14:01
[2016-04-28 19:38] VITALS: BP 119/70; PULSE 82; RESP 16; TEMP 97.6; O2SAT 98
[2016-04-28] MEDS: QUEtiapine FUMARATE 100 MG TAB PO SCH (21:50)
[2016-04-28] MEDS: traZODone HCL 50 MG TAB PO PRN (23:03)
[2016-04-29 05:45] VITALS: BP 151/71; PULSE 83; TEMP 98.5; O2SAT 94
[2016-04-29] MEDS: LEVOTHYROXINE SODIUM 25 MCG TAB PO SCH (05:50)
[2016-04-29] MEDS: INSULIN ASPART SUPPLEMENTAL SCALE SQ SCH ×4 (05:50→21:00)
[2016-04-29] MEDS: REMOVE OLD NICOTINE PATCH T-DERMAL SCH (09:00)
[2016-04-29] MEDS: NICOTINE 21 MG/24 HR PATCH T-DERMAL SCH (09:00)
[2016-04-29] MEDS: risperiDONE 3 MG TAB PO SCH ×2 (09:43→21:43)
[2016-04-29] MEDS: amLODIPine BESYLATE 5 MG TAB PO SCH (09:44)
[2016-04-29] MEDS: PANTOPRAZOLE SOD 20 MG DELAYED RELEASE TAB PO SCH (09:44)
[2016-04-29] MEDS: ASPIRIN EC 81 MG TABEC PO SCH (09:44)
[2016-04-29] MEDS: ESCITALOPRAM OXALATE 20 MG TAB PO SCH (09:44)
--- NOTE | 2016-04-29 12:36 | HHI.PR ---
Subjective Remarks Follow-up leukopenia and hyperglycemia. Patient has no complaints. Discussed with RN Objective Vitals Vital Signs Date Time Temp Pulse Resp B/P Pulse Ox O2 Delivery O2 Flow Rate FiO2 04/29/16 05:45 98.5 83 151/71 94 04/28/16 19:38 97.6 82 16 119/70 98 I/O 04/28/16 04/28/16 04/28/16 04/29/16 04/29/16 04/29/16 07:00 15:00 23:00 07:00 15:00 23:00 Intake Total 0 ml 1800 ml 1320 ml 120 ml 480 ml Output Total 240 ml Balance 0 ml 1800 ml 1320 ml -120 ml 480 ml Intake Oral 0 ml 1800 ml 1320 ml 120 ml 480 ml Output Urine Total 240 ml # Voids 1 2 2 Result Diagram: 04/28/16 0558 04/26/16 0628 Objective Remarks GENERAL: Well-developed, well-nourished in no distress SKIN: Warm and dry. HEAD: Atraumatic. Normocephalic. EYES: Pupils equal and round. No scleral icterus. No injection or drainage. ENT: No nasal bleeding or discharge. Mucous membranes pink and moist. NECK: Trachea midline. No JVD. CARDIOVASCULAR: Regular rate and rhythm. RESPIRATORY: No accessory muscle use. Clear to auscultation. Breath sounds equal bilaterally. GASTROINTESTINAL: Abdomen soft, non-tender, nondistended. MUSCULOSKELETAL: Extremities without clubbing, cyanosis, or edema. No obvious deformities. NEUROLOGICAL: Awake and alert. No obvious cranial nerve deficits. Motor grossly within normal limits. Five out of 5 muscle strength in the arms and legs. Normal speech. Procedures None A/P Assessment and Plan This is a 75-year-old female patient with a past medical history which includes schizophrenia, dementia, hypertension chronic kidney disease and hypothyroidism. Patient is currently alert and oriented to person only therefore information gathered from patient as well as prior computerized charting. Patient is currently in inpatient psychiatric center we have been consulted for assistance with medical management including diabetes. Last hemoglobin A1c 03/26/2016 of 6.1 indicating the patient has prediabetic and not yet diabetic. Patient is not on any diabetic medications at this time. Mild diabetes mellitus hemoglobin A1c 6.7 Diabetic education. 1800-calorie ADA Diet. Monitor fingersticks for the next 24 hours Patient can follow-up with her primary care provider outpatient Hypertension continue patient's home medication of Norvasc Hypothyroidism continue patient's home medication of Synthroid Leukopenia white blood cell count 3.2 and normocytic normochromic anemia Will recheck CBC in a.m. Patient is afebrile 04/29. Stable could be related to medications (Seroquel and Risperdal). If worse consider hematology consult or switching to another psychotropic DVT prophylaxis patient is ambulatory Discharge Planning If fingersticks are stable, will sign off in the morning Zenon Crawford MD Apr 29, 2016 12:36
[2016-04-29] MEDS: LORazepam 0.5 MG TAB age > 65 yrs PO PRN (16:45)
--- NOTE | 2016-04-29 16:47 | HHI.PYPN ---
Subjective Remarks Patient seen in her room, floor staff, continues to isolate, compliant medications. Patient continues markedly disorganized confused but no significant behavioral problems Review of Systems Other No somatic complaints today Objective Alert: Yes [place]: Person Mood: Agitated, Calm Affect: Restricted Memory Intact: Comment (very poor) Hallucinations: Other (at times appears to be responding to internal stimuli) Delusions: No Delusion Type: Other (vigilant) Suicidal: Ideation (denies) Homicidal: Ideation (denies ) Insight/Judgement Very poor Vitals/IOs Vital Signs Date Time Temp Pulse Resp B/P Pulse Ox O2 Delivery O2 Flow Rate FiO2 04/29/16 05:45 98.5 83 151/71 94 04/28/16 19:38 16 Intake and Output 04/28/16 04/28/16 04/28/16 07:59 15:59 23:59 Intake Total 0 ml 1800 ml 1320 ml Balance 0 ml 1800 ml 1320 ml Assessment & Plan Problem List: (1) Dementia with behavioral disturbance ICD Code: F03.91 Assessment & Plan Estimated LOS: days patient continues demented isolating, compliant medications. For now continue treatment no change Justification for Cont. Inpt. At this time patient would severely decompensated placed in a lower level of care Discharge Planning To be determined Request HC Surrog/Guard Advoc?: Yes Problem Qualifiers (1) Dementia with behavioral disturbance: Qualified Code: F03.91 - Dementia with behavioral disturbance, unspecified dementia type Alphonso Perez MD Apr 29, 2016 16:47
[2016-04-29 19:45] VITALS: BP 158/67; PULSE 81; RESP 17; TEMP 98.1; O2SAT 98
[2016-04-29] MEDS: QUEtiapine FUMARATE 100 MG TAB PO SCH (21:43)
[2016-04-30] MEDS: LEVOTHYROXINE SODIUM 25 MCG TAB PO SCH (06:10)
[2016-04-30 06:27] VITALS: BP 136/83; PULSE 74; RESP 18; TEMP 97.8; O2SAT 100
[2016-04-30] MEDS: INSULIN ASPART SUPPLEMENTAL SCALE SQ SCH ×4 (06:33→21:00)
[2016-04-30] MEDS: NICOTINE 21 MG/24 HR PATCH T-DERMAL SCH (09:00)
[2016-04-30] MEDS: REMOVE OLD NICOTINE PATCH T-DERMAL SCH (09:00)
[2016-04-30] MEDS: LORazepam 2 MG/ML VIAL - age > 65 yrs IM PRN (10:03)
[2016-04-30] MEDS: ASPIRIN EC 81 MG TABEC PO SCH (11:30)
[2016-04-30] MEDS: ESCITALOPRAM OXALATE 20 MG TAB PO SCH (11:31)
[2016-04-30] MEDS: amLODIPine BESYLATE 5 MG TAB PO SCH (11:31)
[2016-04-30] MEDS: risperiDONE 3 MG TAB PO SCH ×2 (11:31→21:36)
[2016-04-30] MEDS: PANTOPRAZOLE SOD 20 MG DELAYED RELEASE TAB PO SCH (11:31)
--- NOTE | 2016-04-30 13:12 | HHI.PYPN ---
Subjective Remarks Patient was seen and case discussed with nursing. This morning patient was seen responding to internal stimuli by nursing. Today she is calm, pleasantly confused, alert and oriented 1. Compliant with medications. Denies auditory visual hallucinations Objective Alert: Yes [place]: Person Mood: Agitated, Calm Affect: Restricted Memory Intact: Comment (very poor) Hallucinations: Other (at times appears to be responding to internal stimuli) Delusions: No Delusion Type: Other (vigilant) Suicidal: Ideation (denies) Homicidal: Ideation (denies ) Insight/Judgement Poor Vitals/IOs Vital Signs Date Time Temp Pulse Resp B/P Pulse Ox O2 Delivery O2 Flow Rate FiO2 04/30/16 06:27 97.8 74 18 136/83 100 Intake and Output 04/29/16 04/29/16 04/30/16 08:00 16:00 00:00 Intake Total 360 ml 240 ml 1080 ml Output Total 240 ml Balance 120 ml 240 ml 1080 ml Assessment & Plan Problem List: (1) Dementia with behavioral disturbance ICD Code: F03.91 Assessment & Plan Continue current treatment plan Justification for Cont. Inpt. Patient was seen and case discussed with nursing. This morning patient was seen responding to internal stimuli by nursing. Today she is calm, pleasantly confused, alert and oriented 1. Compliant with medications. Denies auditory visual hallucinations Request HC Surrog/Guard Advoc?: Yes Problem Qualifiers (1) Dementia with behavioral disturbance: Qualified Code: F03.91 - Dementia with behavioral disturbance, unspecified dementia type Zeus Hill DO Apr 30, 2016 13:12
--- NOTE | 2016-04-30 13:17 | HHI.PR ---
Subjective Remarks Follow-up diabetes mellitus. Fingersticks are running over 200. Patient agrees to be on Januvia. Discussed with RN. Objective Vitals Vital Signs Date Time Temp Pulse Resp B/P Pulse Ox O2 Delivery O2 Flow Rate FiO2 04/30/16 06:27 97.8 74 18 136/83 100 04/29/16 19:45 98.1 81 17 158/67 98 I/O 04/29/16 04/29/16 04/29/16 04/30/16 04/30/16 04/30/16 07:00 15:00 23:00 07:00 15:00 23:00 Intake Total 120 ml 480 ml 1080 ml Output Total 240 ml Balance -120 ml 480 ml 1080 ml Intake Oral 120 ml 480 ml 1080 ml Output Urine Total 240 ml # Voids 2 1 Result Diagram: 04/28/16 0558 04/26/16 0628 Objective Remarks GENERAL: Well-developed, well-nourished in no distress SKIN: Warm and dry. HEAD: Atraumatic. Normocephalic. EYES: Pupils equal and round. No scleral icterus. No injection or drainage. ENT: No nasal bleeding or discharge. Mucous membranes pink and moist. NECK: Trachea midline. No JVD. CARDIOVASCULAR: Regular rate and rhythm. RESPIRATORY: No accessory muscle use. Clear to auscultation. Breath sounds equal bilaterally. GASTROINTESTINAL: Abdomen soft, non-tender, nondistended. MUSCULOSKELETAL: Extremities without clubbing, cyanosis, or edema. No obvious deformities. NEUROLOGICAL: Awake and alert. No obvious cranial nerve deficits. Motor grossly within normal limits. Five out of 5 muscle strength in the arms and legs. Normal speech. Nonfocal Procedures None A/P Assessment and Plan This is a 75-year-old female patient with a past medical history which includes schizophrenia, dementia, hypertension chronic kidney disease and hypothyroidism. Patient is currently alert and oriented to person only therefore information gathered from patient as well as prior computerized charting. Patient is currently in inpatient psychiatric center we have been consulted for assistance with medical management including diabetes. Last hemoglobin A1c 03/26/2016 of 6.1 indicating the patient has prediabetic and not yet diabetic. Patient is not on any diabetic medications at this time. Mild diabetes mellitus hemoglobin A1c 6.7 Diabetic education. 1800-calorie ADA Diet. Fingersticks are running over 200. Start low-dose Januvia and monitor response. Hypoglycemia protocol. Patient can follow-up with her primary care provider outpatient Hypertension continue patient's home medication of Norvasc Hypothyroidism continue patient's home medication of Synthroid Leukopenia white blood cell count 3.2 and normocytic normochromic anemia. Stable. Leukopenia could be related to medications (Seroquel and Risperdal). If worse consider hematology consult or switching to another psychotropic. Outpatient follow-up DVT prophylaxis patient is ambulatory Zenon Crawford MD Apr 30, 2016 13:17
[2016-04-30 19:00] VITALS: BP 149/69; PULSE 81; RESP 16; TEMP 98.2; O2SAT 99
[2016-04-30] MEDS: diphenhydrAMINE HCL 50 MG CAP - HS PRN PO (21:36)
[2016-04-30] MEDS: QUEtiapine FUMARATE 100 MG TAB PO SCH (21:36)
[2016-05-01] MEDS: traZODone HCL 50 MG TAB PO PRN ×2 (02:43→21:12)
[2016-05-01] MEDS: LORazepam 0.5 MG TAB age > 65 yrs PO PRN (02:43)
[2016-05-01] MEDS: LEVOTHYROXINE SODIUM 25 MCG TAB PO SCH (06:00)
[2016-05-01] MEDS: INSULIN ASPART SUPPLEMENTAL SCALE SQ SCH ×4 (06:09→21:00)
[2016-05-01 06:16] VITALS: BP 128/61; PULSE 79; RESP 18; TEMP 97.6; O2SAT 99
[2016-05-01] MEDS: NICOTINE 21 MG/24 HR PATCH T-DERMAL SCH (09:00)
[2016-05-01] MEDS: REMOVE OLD NICOTINE PATCH T-DERMAL SCH (09:00)
[2016-05-01] MEDS: ESCITALOPRAM OXALATE 20 MG TAB PO SCH (10:32)
[2016-05-01] MEDS: amLODIPine BESYLATE 5 MG TAB PO SCH (10:32)
[2016-05-01] MEDS: risperiDONE 3 MG TAB PO SCH ×2 (10:32→21:12)
[2016-05-01] MEDS: ASPIRIN EC 81 MG TABEC PO SCH (10:33)
[2016-05-01] MEDS: PANTOPRAZOLE SOD 20 MG DELAYED RELEASE TAB PO SCH (10:33)
--- NOTE | 2016-05-01 15:25 | HHI.PYPN ---
Subjective Remarks Should discussed with treatment team, patient seen on unit, continues diffusely confused demented no behavior problems have diminished. Compliant medications. For now continue treatment Review of Systems Other No somatic complaints at this time Objective Alert: Yes [place]: Person Mood: Agitated, Calm Affect: Restricted Memory Intact: Comment (very poor) Hallucinations: Other (at times appears to be responding to internal stimuli) Delusions: No Delusion Type: Other (vigilant) Suicidal: Ideation (denies) Homicidal: Ideation (denies ) Insight/Judgement Poor Vitals/IOs Vital Signs Date Time Temp Pulse Resp B/P Pulse Ox O2 Delivery O2 Flow Rate FiO2 05/01/16 06:16 97.6 79 18 128/61 99 Intake and Output 04/30/16 04/30/16 05/01/16 08:00 16:00 00:00 Intake Total 600 ml 720 ml Balance 600 ml 720 ml Assessment & Plan Problem List: (1) Dementia with behavioral disturbance ICD Code: F03.91 Assessment & Plan Estimated LOS: days patient continues to mentate though behavior problems are improving. Compliant medications Justification for Cont. Inpt. At this time patient would severely decompensated placed in the lower level of care Discharge Planning To be determined Request HC Surrog/Guard Advoc?: Yes Problem Qualifiers (1) Dementia with behavioral disturbance: Qualified Code: F03.91 - Dementia with behavioral disturbance, unspecified dementia type Alphonso Perez MD May 01, 2016 15:25
[2016-05-01 19:54] VITALS: BP 162/65; PULSE 89; RESP 18; TEMP 98.1; O2SAT 94
[2016-05-01] MEDS: QUEtiapine FUMARATE 100 MG TAB PO SCH (21:12)
[2016-05-02 05:59] VITALS: BP 157/68; PULSE 70; RESP 16; TEMP 98.4; O2SAT 100
[2016-05-02] MEDS: LEVOTHYROXINE SODIUM 25 MCG TAB PO SCH (06:12)
[2016-05-02] MEDS: INSULIN ASPART SUPPLEMENTAL SCALE SQ SCH ×4 (06:24→20:04)
[2016-05-02] MEDS: REMOVE OLD NICOTINE PATCH T-DERMAL SCH (09:00)
[2016-05-02] MEDS: NICOTINE 21 MG/24 HR PATCH T-DERMAL SCH (09:00)
--- NOTE | 2016-05-02 09:07 | HHI.PYPN ---
Subjective Remarks Patient seen in her room with nurse Margaret, chart review, patient continues markedly confused disoriented demented, though behaviors have calm down she continues to need redirection and assistance but is better behaved. Compliant medications. For now continue treatment no change Review of Systems Other No somatic complaints today Objective Alert: Yes [place]: Person Mood: Agitated, Calm Affect: Restricted Memory Intact: Comment (very poor) Hallucinations: Other (at times appears to be responding to internal stimuli) Delusions: No Delusion Type: Other (vigilant) Suicidal: Ideation (denies) Homicidal: Ideation (denies ) Insight/Judgement Very poor Vitals/IOs Vital Signs Date Time Temp Pulse Resp B/P Pulse Ox O2 Delivery O2 Flow Rate FiO2 05/02/16 05:59 98.4 70 16 157/68 100 Intake and Output 05/01/16 05/01/16 05/02/16 08:00 16:00 00:00 Intake Total 120 ml 480 ml 840 ml Balance 120 ml 480 ml 840 ml Assessment & Plan Problem List: (1) Dementia with behavioral disturbance ICD Code: F03.91 Assessment & Plan Estimated LOS: days patient continues demented, though behaviors are coming under better control. Compliant medications. Justification for Cont. Inpt. At this time patient would she really decompensated placed in the lower level of care Discharge Planning To be determined Request HC Surrog/Guard Advoc?: Yes Problem Qualifiers (1) Dementia with behavioral disturbance: Qualified Code: F03.91 - Dementia with behavioral disturbance, unspecified dementia type Alphonso Perez MD May 02, 2016 09:07
[2016-05-02] MEDS: amLODIPine BESYLATE 5 MG TAB PO SCH (09:35)
[2016-05-02] MEDS: PANTOPRAZOLE SOD 20 MG DELAYED RELEASE TAB PO SCH (09:35)
[2016-05-02] MEDS: ESCITALOPRAM OXALATE 20 MG TAB PO SCH (09:35)
[2016-05-02] MEDS: risperiDONE 3 MG TAB PO SCH ×2 (09:35→21:26)
[2016-05-02] MEDS: ASPIRIN EC 81 MG TABEC PO SCH (09:36)
--- NOTE | 2016-05-02 11:17 | HHI.PR ---
Blank section for building Patient blood glucose improved with Januvia. rec patient continue Januvia and follow up with PCP after DC. Will sign off if patient's condition changes or further assistance is needed please reconsult. Myrna Adkins May 02, 2016 11:17
[2016-05-02] MEDS ORDERED: SITA25 PO (11:18)
[2016-05-02 20:13] VITALS: BP 145/63; PULSE 77; RESP 17; TEMP 98.5; O2SAT 95
[2016-05-02] MEDS: QUEtiapine FUMARATE 100 MG TAB PO SCH (21:26)
[2016-05-02] MEDS: diphenhydrAMINE HCL 50 MG CAP - HS PRN PO (23:25)
[2016-05-02] MEDS: LORazepam 0.5 MG TAB age > 65 yrs PO PRN (23:25)
[2016-05-03] MEDS: traZODone HCL 50 MG TAB PO PRN (02:20)
[2016-05-03] MEDS: LEVOTHYROXINE SODIUM 25 MCG TAB PO SCH (06:22)
[2016-05-03] MEDS: INSULIN ASPART SUPPLEMENTAL SCALE SQ SCH ×4 (06:22→20:35)
[2016-05-03 06:31] VITALS: BP 137/80; PULSE 80; RESP 18; TEMP 98.4; O2SAT 99
[2016-05-03] MEDS: amLODIPine BESYLATE 5 MG TAB PO SCH (08:50)
[2016-05-03] MEDS: risperiDONE 3 MG TAB PO SCH ×2 (08:50→22:02)
[2016-05-03] MEDS: ESCITALOPRAM OXALATE 20 MG TAB PO SCH (08:50)
[2016-05-03] MEDS: PANTOPRAZOLE SOD 20 MG DELAYED RELEASE TAB PO SCH (08:50)
[2016-05-03] MEDS: ASPIRIN EC 81 MG TABEC PO SCH (08:50)
[2016-05-03] MEDS: REMOVE OLD NICOTINE PATCH T-DERMAL SCH (08:52)
[2016-05-03] MEDS: NICOTINE 21 MG/24 HR PATCH T-DERMAL SCH (08:52)
--- NOTE | 2016-05-03 09:00 | HHI.PYPN ---
Subjective Remarks Patient seen in day room with nurse Daysi, chart review, patient continues to service a confused though somewhat more focused today, did remember me from our visit yesterday. Patient compliant medications. For now continue treatment Review of Systems Other No somatic complaints today Objective Alert: Yes [place]: Person Mood: Agitated, Calm Affect: Restricted Memory Intact: Comment (very poor) Hallucinations: Other (at times appears to be responding to internal stimuli) Delusions: No Delusion Type: Other (vigilant) Suicidal: Ideation (denies) Homicidal: Ideation (denies ) Insight/Judgement Very poor Vitals/IOs Vital Signs Date Time Temp Pulse Resp B/P Pulse Ox O2 Delivery O2 Flow Rate FiO2 05/03/16 06:31 98.4 80 18 137/80 99 Intake and Output 05/02/16 05/02/16 05/03/16 08:00 16:00 00:00 Intake Total 220 ml 720 ml 840 ml Balance 220 ml 720 ml 840 ml Assessment & Plan Problem List: (1) Dementia with behavioral disturbance ICD Code: F03.91 Assessment & Plan Estimated LOS: days patient continues demented confused needing occasional redirection however no significant behavioral outbursts noted Justification for Cont. Inpt. At this time there is a significant risk of patient decompensating of placed in the lower level of care Discharge Planning To be determined Request HC Surrog/Guard Advoc?: Yes Problem Qualifiers (1) Dementia with behavioral disturbance: Qualified Code: F03.91 - Dementia with behavioral disturbance, unspecified dementia type Alphonso Perez MD May 03, 2016 09:00
[2016-05-03] MEDS: LORazepam 2 MG/ML VIAL - age > 65 yrs IM PRN (09:40)
[2016-05-03 19:48] VITALS: BP 153/73; PULSE 87; RESP 17; TEMP 98; O2SAT 98
[2016-05-03] MEDS: QUEtiapine FUMARATE 100 MG TAB PO SCH (22:02)
[2016-05-04 06:00] VITALS: BP 137/64; PULSE 73; RESP 15; TEMP 98.6; O2SAT 96
[2016-05-04] MEDS: LEVOTHYROXINE SODIUM 25 MCG TAB PO SCH (06:06)
[2016-05-04] MEDS: INSULIN ASPART SUPPLEMENTAL SCALE SQ SCH ×4 (06:06→21:00)
[2016-05-04] MEDS: REMOVE OLD NICOTINE PATCH T-DERMAL SCH (09:00)
[2016-05-04] MEDS: PANTOPRAZOLE SOD 20 MG DELAYED RELEASE TAB PO SCH (09:51)
[2016-05-04] MEDS: ASPIRIN EC 81 MG TABEC PO SCH (09:52)
[2016-05-04] MEDS: risperiDONE 3 MG TAB PO SCH ×2 (09:52→20:52)
[2016-05-04] MEDS: NICOTINE 21 MG/24 HR PATCH T-DERMAL SCH (09:52)
[2016-05-04] MEDS: amLODIPine BESYLATE 5 MG TAB PO SCH (09:52)
[2016-05-04] MEDS: ESCITALOPRAM OXALATE 20 MG TAB PO SCH (09:52)
--- NOTE | 2016-05-04 12:38 | HHI.PYPN ---
Subjective Remarks Patient seen in [place] [address], retained by Assistant Analyst Jo. Patient continues markedly confused disoriented somewhat rambling speech. But of behaviors have improved, she is compliant with the medication. For now continue treatment Review of Systems Other No somatic complaints today Objective Alert: Yes [place]: Person Mood: Agitated, Calm Affect: Restricted Memory Intact: Comment (very poor) Hallucinations: Other (at times appears to be responding to internal stimuli) Delusions: No Delusion Type: Other (vigilant) Suicidal: Ideation (denies) Homicidal: Ideation (denies ) Insight/Judgement Poor Vitals/IOs Vital Signs Date Time Temp Pulse Resp B/P Pulse Ox O2 Delivery O2 Flow Rate FiO2 05/04/16 06:00 98.6 73 15 137/64 96 Intake and Output 05/03/16 05/03/16 05/04/16 08:00 16:00 00:00 Intake Total 0 ml 720 ml 840 ml Balance 0 ml 720 ml 840 ml Assessment & Plan Problem List: (1) Dementia with behavioral disturbance ICD Code: F03.91 Assessment & Plan Estimated LOS: days patient is demented and confused, though behaviors have improved. Compliant medications. For now continue treatment Justification for Cont. Inpt. At this time patient was really decompensated placed in the lower level of care Discharge Planning To be determined Request HC Surrog/Guard Advoc?: Yes Problem Qualifiers (1) Dementia with behavioral disturbance: Qualified Code: F03.91 - Dementia with behavioral disturbance, unspecified dementia type Alphonso Perez MD May 04, 2016 12:38
[2016-05-04 20:44] VITALS: BP 151/83; PULSE 74; RESP 16; TEMP 98.4; O2SAT 96
[2016-05-04] MEDS: QUEtiapine FUMARATE 100 MG TAB PO SCH (20:52)
[2016-05-04] MEDS: LORazepam 0.5 MG TAB age > 65 yrs PO PRN (20:56)
[2016-05-04] MEDS: traZODone HCL 50 MG TAB PO PRN (20:56)
[2016-05-04] MEDS: diphenhydrAMINE HCL 50 MG CAP - HS PRN PO (21:59)
[2016-05-05] MEDS: LORazepam 2 MG/ML VIAL - age > 65 yrs IM PRN (00:26)
[2016-05-05] MEDS: LEVOTHYROXINE SODIUM 25 MCG TAB PO SCH (06:06)
[2016-05-05] MEDS: INSULIN ASPART SUPPLEMENTAL SCALE SQ SCH ×4 (06:46→21:00)
[2016-05-05] MEDS: PANTOPRAZOLE SOD 20 MG DELAYED RELEASE TAB PO SCH (08:58)
[2016-05-05] MEDS: ESCITALOPRAM OXALATE 20 MG TAB PO SCH (08:58)
[2016-05-05] MEDS: ASPIRIN EC 81 MG TABEC PO SCH (08:58)
[2016-05-05] MEDS: amLODIPine BESYLATE 5 MG TAB PO SCH (08:58)
[2016-05-05] MEDS: risperiDONE 3 MG TAB PO SCH ×2 (08:58→21:00)
[2016-05-05] MEDS: NICOTINE 21 MG/24 HR PATCH T-DERMAL SCH (09:00)
[2016-05-05] MEDS: REMOVE OLD NICOTINE PATCH T-DERMAL SCH (09:00)
--- NOTE | 2016-05-05 15:20 | HHI.PYPN ---
Subjective Remarks Patient seen in room with nurse Leah, patient [place] with us though continues markedly disoriented and confused. Compliant medications Review of Systems Other No somatic complaints today Objective Alert: Yes [place]: Person Mood: Agitated, Calm Affect: Restricted Memory Intact: Comment (very poor) Hallucinations: Other (at times appears to be responding to internal stimuli) Delusions: No Delusion Type: Other (vigilant) Suicidal: Ideation (denies) Homicidal: Ideation (denies ) Insight/Judgement Very poor Vitals/IOs Vital Signs Date Time Temp Pulse Resp B/P Pulse Ox O2 Delivery O2 Flow Rate FiO2 05/04/16 20:44 98.4 74 16 151/83 96 Intake and Output 05/04/16 05/04/16 05/05/16 08:00 16:00 00:00 Intake Total 120 ml 720 ml 0 ml Balance 120 ml 720 ml 0 ml Assessment & Plan Problem List: (1) Dementia with behavioral disturbance ICD Code: F03.91 Assessment & Plan Estimated LOS: days patient continues demented though behaviors are under better control, compliant medications. Justification for Cont. Inpt. At this time patient was significantly decompensated placed in a lower level of care Discharge Planning To be determined Request HC Surrog/Guard Advoc?: Yes Problem Qualifiers (1) Dementia with behavioral disturbance: Qualified Code: F03.91 - Dementia with behavioral disturbance, unspecified dementia type Alphonso Perez MD May 05, 2016 15:19
[2016-05-05 19:50] VITALS: BP 148/63; PULSE 76; RESP 17; TEMP 96.8; O2SAT 99
[2016-05-05] MEDS: QUEtiapine FUMARATE 100 MG TAB PO SCH (21:00)
[2016-05-05] MEDS: traZODone HCL 50 MG TAB PO PRN (21:32)
[2016-05-06] MEDS: diphenhydrAMINE HCL 50 MG CAP - HS PRN PO (02:30)
[2016-05-06] MEDS: LEVOTHYROXINE SODIUM 25 MCG TAB PO SCH (05:57)
[2016-05-06 06:04] VITALS: BP 120/62; PULSE 67; RESP 17; TEMP 97.9; O2SAT 97
[2016-05-06] MEDS: INSULIN ASPART SUPPLEMENTAL SCALE SQ SCH ×4 (06:15→20:39)
[2016-05-06] MEDS: REMOVE OLD NICOTINE PATCH T-DERMAL SCH (09:00)
[2016-05-06] MEDS: NICOTINE 21 MG/24 HR PATCH T-DERMAL SCH (09:00)
--- NOTE | 2016-05-06 09:06 | HHI.PYPN ---
Subjective Remarks Patient seen and examined with nursing staff. Chart reviewed. Case discussed with nursing staff who reports that the patient is doing better but still struggling a little bit with her sleep. On my examination today, the patient is calm and pleasant. Her speech is a little bit rambling in garbled and difficult to understand. She denies any AVH. She does not voice any SI or HI. She has no pain complaints. She denies side effects from medications. No other issues noted. Review of Systems Other No reported physical complaints today Objective Alert: Yes [place]: Person Mood: Calm Affect: Flat Memory Intact: Comment (not formally assessed) Hallucinations: Other (no AVH) Delusions: No Delusion Type: Other (no amauri delusional material) Suicidal: Ideation (no SI voiced) Homicidal: Ideation (no HI voiced) Insight/Judgement Poor Remarks Thought process seems a little disorganized. Speech rambling. Has some resting dyskinesias but otherwise no abnormal motor movements noted. Labs Labs reviewed. No new labs Vitals/IOs Vital Signs Date Time Temp Pulse Resp B/P Pulse Ox O2 Delivery O2 Flow Rate FiO2 05/06/16 06:04 97.9 67 17 120/62 97 Intake and Output 05/05/16 05/05/16 05/06/16 08:00 16:00 00:00 Intake Total 0 ml 720 ml 480 ml Output Total 100 ml Balance -100 ml 720 ml 480 ml Assessment & Plan Problem List: (1) Dementia with behavioral disturbance ICD Code: F03.91 Assessment & Plan Per nursing staff, issues with sleep. I note the patient has some Benadryl as needed ordered. I will order scheduled melatonin. Continue other medications and care as ordered. Justification for Cont. Inpt. Risk for decompensation Discharge Planning Per Dr. Perez Request HC Surrog/Guard Advoc?: Yes Problem Qualifiers (1) Dementia with behavioral disturbance: Qualified Code: F03.91 - Dementia with behavioral disturbance, unspecified dementia type Dev Solis MD May 06, 2016 09:06
[2016-05-06] MEDS: risperiDONE 3 MG TAB PO SCH ×2 (09:28→20:54)
[2016-05-06] MEDS: ESCITALOPRAM OXALATE 20 MG TAB PO SCH (09:28)
[2016-05-06] MEDS: ASPIRIN EC 81 MG TABEC PO SCH (09:28)
[2016-05-06] MEDS: PANTOPRAZOLE SOD 20 MG DELAYED RELEASE TAB PO SCH (09:28)
[2016-05-06] MEDS: amLODIPine BESYLATE 5 MG TAB PO SCH (09:28)
[2016-05-06 19:22] VITALS: BP 142/68; PULSE 82; RESP 17; TEMP 97.9; O2SAT 100
[2016-05-06] MEDS: MELATONIN 5 MG TAB PO SCH (20:54)
[2016-05-06] MEDS: QUEtiapine FUMARATE 100 MG TAB PO SCH (20:54)
[2016-05-07] MEDS: LEVOTHYROXINE SODIUM 25 MCG TAB PO SCH (06:18)
[2016-05-07] MEDS: INSULIN ASPART SUPPLEMENTAL SCALE SQ SCH ×4 (06:30→21:00)
[2016-05-07] MEDS: NICOTINE 21 MG/24 HR PATCH T-DERMAL SCH (09:00)
[2016-05-07] MEDS: REMOVE OLD NICOTINE PATCH T-DERMAL SCH (09:00)
[2016-05-07] MEDS: PANTOPRAZOLE SOD 20 MG DELAYED RELEASE TAB PO SCH (10:00)
[2016-05-07] MEDS: ESCITALOPRAM OXALATE 20 MG TAB PO SCH (10:00)
[2016-05-07] MEDS: amLODIPine BESYLATE 5 MG TAB PO SCH (10:00)
[2016-05-07] MEDS: ASPIRIN EC 81 MG TABEC PO SCH (10:00)
[2016-05-07] MEDS: risperiDONE 3 MG TAB PO SCH ×2 (10:00→22:09)
[2016-05-07 10:11] VITALS: BP 130/66; PULSE 76; RESP 16; TEMP 98.3; O2SAT 96
--- NOTE | 2016-05-07 12:19 | HHI.PYPN ---
Subjective Remarks Patient seen and examined with nursing staff. Chart reviewed. Case discussed with nursing staff who reports patient was a little bit agitated. It looks like she got some as needed Benadryl. On my examination today, patient is calm and pleasant. No particular complaints. No evident side effects from medications. Review of Systems ROS Limitations: Psychotic, Poor Historian Other No reported somatic complaints Objective Alert: Yes [place]: Person Mood: Calm (presently calm) Affect: Flat Memory Intact: Comment (not formally assessed) Hallucinations: Other (no AVH) Delusions: No Delusion Type: Other (no delusions) Suicidal: Ideation (no SI voiced) Homicidal: Ideation (no HI voiced) Insight/Judgement Poor Remarks Thought process remains a little disorganized Labs Labs reviewed. No new labs. Vitals/IOs Vital Signs Date Time Temp Pulse Resp B/P Pulse Ox O2 Delivery O2 Flow Rate FiO2 05/07/16 10:11 98.3 76 16 130/66 96 Intake and Output 05/06/16 05/06/16 05/07/16 08:00 16:00 00:00 Intake Total 0 ml 480 ml 1440 ml Balance 0 ml 480 ml 1440 ml Assessment & Plan Problem List: (1) Dementia with behavioral disturbance ICD Code: F03.91 Assessment & Plan Continue current psychotropics as ordered. Could consider titrating Seroquel if nocturnal agitation persists. Continue other medications and care as ordered. Justification for Cont. Inpt. Risk for decompensation Discharge Planning Per Dr. Perez Request HC Surrog/Guard Advoc?: Yes Problem Qualifiers (1) Dementia with behavioral disturbance: Qualified Code: F03.91 - Dementia with behavioral disturbance, unspecified dementia type Dev Solis MD May 07, 2016 12:19
[2016-05-07 20:14] VITALS: BP 135/59; PULSE 65; RESP 17; TEMP 97.6; O2SAT 100
[2016-05-07] MEDS: MELATONIN 5 MG TAB PO SCH (22:09)
[2016-05-07] MEDS: QUEtiapine FUMARATE 100 MG TAB PO SCH (22:09)
[2016-05-08 06:00] VITALS: BP 135/60; PULSE 75; RESP 18; TEMP 99; O2SAT 98
[2016-05-08] MEDS: LEVOTHYROXINE SODIUM 25 MCG TAB PO SCH (06:21)
[2016-05-08] MEDS: INSULIN ASPART SUPPLEMENTAL SCALE SQ SCH ×4 (06:35→20:45)
[2016-05-08] MEDS: NICOTINE 21 MG/24 HR PATCH T-DERMAL SCH (09:00)
[2016-05-08] MEDS: REMOVE OLD NICOTINE PATCH T-DERMAL SCH (09:00)
[2016-05-08] MEDS: PANTOPRAZOLE SOD 20 MG DELAYED RELEASE TAB PO SCH (09:14)
[2016-05-08] MEDS: amLODIPine BESYLATE 5 MG TAB PO SCH (09:15)
[2016-05-08] MEDS: ASPIRIN EC 81 MG TABEC PO SCH (09:15)
[2016-05-08] MEDS: ESCITALOPRAM OXALATE 20 MG TAB PO SCH (09:15)
[2016-05-08] MEDS: risperiDONE 3 MG TAB PO SCH ×2 (09:15→20:42)
--- NOTE | 2016-05-08 15:52 | HHI.PYPN ---
Subjective Remarks Patient seen in [place] with nurse Leah, chart review, patient continues markedly confused disoriented times loud and mildly intrusive. Compliant medications. Patient redirectable no significant outbursts Review of Systems Except as stated in HPI: all other systems reviewed are Neg Objective Alert: Yes [place]: Person Mood: Calm (presently calm) Affect: Flat Memory Intact: Comment (not formally assessed) Hallucinations: Other (no AVH) Delusions: No Delusion Type: Other (no delusions) Suicidal: Ideation (no SI voiced) Homicidal: Ideation (no HI voiced) Insight/Judgement Very poor Vitals/IOs Vital Signs Date Time Temp Pulse Resp B/P Pulse Ox O2 Delivery O2 Flow Rate FiO2 05/08/16 06:00 99.0 75 18 135/60 98 Intake and Output 05/07/16 05/07/16 05/08/16 08:00 16:00 00:00 Intake Total 480 ml 800 ml 1080 ml Balance 480 ml 800 ml 1080 ml Assessment & Plan Problem List: (1) Dementia with behavioral disturbance ICD Code: F03.91 Assessment & Plan Estimated LOS: days patient continues demented needing redirection though compliant with medications staff continues to work on placement issues Justification for Cont. Inpt. This time patient will decompensate a placed a lower level of care Discharge Planning To be determined Request HC Surrog/Guard Advoc?: Yes Problem Qualifiers (1) Dementia with behavioral disturbance: Qualified Code: F03.91 - Dementia with behavioral disturbance, unspecified dementia type Alphonso Perez MD May 08, 2016 15:52
[2016-05-08 19:30] VITALS: BP 167/69; PULSE 84; RESP 16; TEMP 98.4
[2016-05-08] MEDS: MELATONIN 5 MG TAB PO SCH (20:42)
[2016-05-08] MEDS: QUEtiapine FUMARATE 100 MG TAB PO SCH (20:42)
[2016-05-09 05:30] VITALS: BP 119/62; PULSE 70; RESP 16; TEMP 99.5; O2SAT 93
[2016-05-09] MEDS: LEVOTHYROXINE SODIUM 25 MCG TAB PO SCH (06:00)
[2016-05-09] MEDS: INSULIN ASPART SUPPLEMENTAL SCALE SQ SCH ×4 (06:01→20:01)
[2016-05-09] MEDS: ASPIRIN EC 81 MG TABEC PO SCH (09:00)
[2016-05-09] MEDS: amLODIPine BESYLATE 5 MG TAB PO SCH (09:00)
[2016-05-09] MEDS: REMOVE OLD NICOTINE PATCH T-DERMAL SCH (09:00)
[2016-05-09] MEDS: NICOTINE 21 MG/24 HR PATCH T-DERMAL SCH (09:00)
[2016-05-09] MEDS: PANTOPRAZOLE SOD 20 MG DELAYED RELEASE TAB PO SCH (09:00)
[2016-05-09] MEDS: ESCITALOPRAM OXALATE 20 MG TAB PO SCH (09:00)
[2016-05-09] MEDS: risperiDONE 3 MG TAB PO SCH ×2 (09:00→20:44)
--- NOTE | 2016-05-09 11:31 | HHI.PYPN ---
Subjective Remarks Patient seen in day room with nurse 1, chart review, patient continues alert low diffusely confused and disoriented, though behaviors are under control patient is less intrusive less labile. For now continue treatment Review of Systems Except as stated in HPI: all other systems reviewed are Neg Objective Alert: Yes [place]: Person Mood: Calm (presently calm) Affect: Flat Memory Intact: Comment (not formally assessed) Hallucinations: Other (no AVH) Delusions: No Delusion Type: Other (no delusions) Suicidal: Ideation (no SI voiced) Homicidal: Ideation (no HI voiced) Insight/Judgement Poor Vitals/IOs Vital Signs Date Time Temp Pulse Resp B/P Pulse Ox O2 Delivery O2 Flow Rate FiO2 05/09/16 05:30 99.5 70 16 119/62 93 Intake and Output 05/08/16 05/08/16 05/08/16 07:59 15:59 23:59 Intake Total 1020 ml Balance 1020 ml Assessment & Plan Problem List: (1) Dementia with behavioral disturbance ICD Code: F03.91 Assessment & Plan Estimated LOS: days patient continues confused and disoriented, behaviors are somewhat softening, compliant medications Justification for Cont. Inpt. At this time patient would significantly decompensated placed at a lower level of care Discharge Planning To be determined Request HC Surrog/Guard Advoc?: Yes Problem Qualifiers (1) Dementia with behavioral disturbance: Qualified Code: F03.91 - Dementia with behavioral disturbance, unspecified dementia type Alphonso Perez MD May 09, 2016 11:31
[2016-05-09 18:42] VITALS: BP 165/70; PULSE 79; RESP 18; TEMP 98.4; O2SAT 99
[2016-05-09] MEDS: MELATONIN 5 MG TAB PO SCH (20:44)
[2016-05-09] MEDS: QUEtiapine FUMARATE 100 MG TAB PO SCH (20:44)
[2016-05-09] MEDS: traZODone HCL 50 MG TAB PO PRN (20:47)
[2016-05-09] MEDS: diphenhydrAMINE HCL 50 MG CAP - HS PRN PO (23:26)
[2016-05-10] MEDS: LORazepam 0.5 MG TAB age > 65 yrs PO PRN (05:02)
[2016-05-10] MEDS: LEVOTHYROXINE SODIUM 25 MCG TAB PO SCH (05:02)
[2016-05-10 05:15] VITALS: BP 137/90; PULSE 102; RESP 16; TEMP 98.3; O2SAT 96
[2016-05-10] MEDS: INSULIN ASPART SUPPLEMENTAL SCALE SQ SCH ×4 (06:20→21:00)
[2016-05-10] MEDS: risperiDONE 3 MG TAB PO SCH ×2 (08:59→21:03)
[2016-05-10] MEDS: amLODIPine BESYLATE 5 MG TAB PO SCH (08:59)
[2016-05-10] MEDS: PANTOPRAZOLE SOD 20 MG DELAYED RELEASE TAB PO SCH (08:59)
[2016-05-10] MEDS: ASPIRIN EC 81 MG TABEC PO SCH (08:59)
[2016-05-10] MEDS: ESCITALOPRAM OXALATE 20 MG TAB PO SCH (08:59)
[2016-05-10] MEDS: NICOTINE 21 MG/24 HR PATCH T-DERMAL SCH (09:00)
[2016-05-10] MEDS: REMOVE OLD NICOTINE PATCH T-DERMAL SCH (09:00)
--- NOTE | 2016-05-10 11:06 | HHI.PYPN ---
Subjective Remarks Patient seen in her room with the floor staff, patient continues markedly confused disoriented, though most significant behavioral problems, is able to be redirected. Compliant medication Review of Systems Except as stated in HPI: all other systems reviewed are Neg Objective Alert: Yes [place]: Person Mood: Calm (presently calm) Affect: Flat Memory Intact: Comment (not formally assessed) Hallucinations: Other (no AVH) Delusions: No Delusion Type: Other (no delusions) Suicidal: Ideation (no SI voiced) Homicidal: Ideation (no HI voiced) Insight/Judgement Very poor Vitals/IOs Vital Signs Date Time Temp Pulse Resp B/P Pulse Ox O2 Delivery O2 Flow Rate FiO2 05/10/16 05:15 98.3 102 16 137/90 96 Intake and Output 05/09/16 05/09/16 05/10/16 08:00 16:00 00:00 Intake Total 240 ml 1440 ml 600 ml Balance 240 ml 1440 ml 600 ml Assessment & Plan Problem List: (1) Dementia with behavioral disturbance ICD Code: F03.91 Assessment & Plan Estimated LOS: days patient continues demented confused though behaviors have improved, compliant medications, for now continue treatment Justification for Cont. Inpt. At this time patient would significantly decompensated placed in a lower level of care Discharge Planning To be determined Request HC Surrog/Guard Advoc?: Yes Problem Qualifiers (1) Dementia with behavioral disturbance: Qualified Code: F03.91 - Dementia with behavioral disturbance, unspecified dementia type Alphonso Perez MD May 10, 2016 11:06
[2016-05-10 18:00] VITALS: BP 158/70; PULSE 72; RESP 18; TEMP 98.1; O2SAT 99
[2016-05-10] MEDS: MELATONIN 5 MG TAB PO SCH (21:03)
[2016-05-10] MEDS: QUEtiapine FUMARATE 100 MG TAB PO SCH (21:03)
[2016-05-11 05:55] VITALS: BP 124/58; PULSE 70; RESP 20; TEMP 98.3
[2016-05-11] MEDS: LEVOTHYROXINE SODIUM 25 MCG TAB PO SCH (06:18)
[2016-05-11] MEDS: INSULIN ASPART SUPPLEMENTAL SCALE SQ SCH ×2 (06:18→11:00)
[2016-05-11 06:27] VITALS: BP 124/58; PULSE 70; RESP 20; TEMP 98.3; O2SAT 96
[2016-05-11] MEDS: NICOTINE 21 MG/24 HR PATCH T-DERMAL SCH (09:00)
[2016-05-11] MEDS: REMOVE OLD NICOTINE PATCH T-DERMAL SCH (09:00)
[2016-05-11] MEDS: risperiDONE 3 MG TAB PO SCH (09:06)
[2016-05-11] MEDS: amLODIPine BESYLATE 5 MG TAB PO SCH (09:07)
[2016-05-11] MEDS: ESCITALOPRAM OXALATE 20 MG TAB PO SCH (09:07)
[2016-05-11] MEDS: ASPIRIN EC 81 MG TABEC PO SCH (09:07)
[2016-05-11] MEDS: PANTOPRAZOLE SOD 20 MG DELAYED RELEASE TAB PO SCH (09:07)
[2016-05-11] MEDS ORDERED: MELA1TAB22 PO (09:14)
[2016-05-11] MEDS ORDERED: RISP3 PO (09:14)
[2016-05-11] MEDS ORDERED: LEVO25TA4 PO (09:14)
[2016-05-11] MEDS ORDERED: ASPI81TA11 PO (09:14)
[2016-05-11] MEDS ORDERED: AMLO5 PO (09:14)
[2016-05-11] MEDS ORDERED: SERO100T PO (09:14)
[2016-05-11] MEDS ORDERED: ESCI20TA PO (09:14)
[2016-05-11] MEDS ORDERED: PANT20 PO (09:14)
--- NOTE | 2016-05-11 09:27 | HHI.DS ---
Psychiatry Discharge Summary Inpatient Psychiatric care?: Yes Advance Directive: Yes Mental Health AdvanceDirective: No Health Care Proxy: Yes Admission Admission Date Apr 24, 2016 at 21:33 Admission Diagnosis: (1) Dementia with behavioral disturbance ICD Code: F03.[address] Perez's H&P: Patient is a 75-year-old Afro-[place]onian female well known to us from prior hospitalization here 03/25/16 through 04/17/16 under visit [id number]. Comes here under Bellamy act dated 04/24/16 signed a and Willian boucher PhD stating Juno is experiencing visual hallucinations which are significantly impacting her functioning and putting both herself and others at risk she is demonstrating agitated internal stimuli and lashing out physically running through the unit and threatening both actual residents and imaginary people this is also clearly distressing for her she requires a higher level of care to contain her keep her safe and stabilize her meds. Patient seen screened in the ED urine toxicology negative blood alcohol level negative. At the present time patient sitting quietly in the room on 2500, nurse Rose present throughout session patient is calm diffusely confused, did not recognize nurse Tavarez or myself though we care for her with her prior admission. She is markedly disorganized. Does denies suicidality does deny voices or visions but at times appears to be responding to internal stimuli it appears her med reconciliation does not accurately represent her discharge medications. I have reviewed them and adjusted the medications. In any event at this time I feel patient does meet criteria for continued inpatient psychiatric hospitalization of the Bellamy act thus I will do first opinion requests second opinion, I also feel patient does not have capacity to make appropriate decisions concerning her care thus I' ll ask for healthcare surrogate and a guardian advocate. We will also in hospitalist monitor her medical condition. Hopeless to be fairly short stay and if he cannot return her to her prior placement we do need to look for a secure placement for this lady On my examination today: Patient seen and examined. Chart reviewed. Case discussed with nursing staff. On my examination today, patient presents as fairly disorganized. She says that she came into the hospital because "I have work to do. I have to get my bills paid. I got it all done and they released me." She does admit that she was "a little upset and I started walking" at the facility, but nursing staff tells me she has been a behavioral problem here. She denies any audiovisual hallucinations but appears internally preoccupied. She denies any suicidal or homicidal thoughts. She maintains she has been adherent with psychotropic medications and denies side effects. I am unable to obtain any past psychiatric, family, chemical dependency or social history from this patient because of her degree of thought disorganization or present. Tobacco Use In Past 30 Days: Cognitive Impairment Alcohol Use: Monthly or Less Hospital Course Patient's hospital course was somewhat chaotic initially with her behaviors being difficult to control especially towards late afternoon and evening. However as patient became more compliant with the medications are behaviors calm down the dementia cognitive problems continue. Patient compliant medications. Patient has been interviewed by [facility]. There is a bed available there for her today. At this time I feel patient has reached her maximum benefit of this hospitalization thus patient will be discharged today to of treat Rx 1 month the follow-up mental health services through that facility Results Blood Pressure 124 / 58 Vital Signs Date Time Temp Pulse Resp B/P Pulse Ox O2 Delivery O2 Flow Rate FiO2 05/11/16 06:27 98.3 70 20 124/58 96 Urine toxicology negative Summary of Procedures None done Pending results at discharge: No Medications # of Antipsychotic meds at D/C: 2 Appropriate >1 Antipsych meds?: 1 Approp Antipsych med options 1 - Minimum of three failed multiple trials of monotherapy. 2 - Documented plan to taper to monotherapy due to previous use of multiple meds OR cross-taper in progress at D/C. 3 - Documentation of augmentation of Clozapine. 4 - Justification other than those listed in allowable values 1-3, document here : Discharge Discharge Date: May 11, 2016 Discharge Diagnosis: (1) Dementia with behavioral disturbance Diagnosis: Principal ICD Code: F03.91 Mental Status Exam at Disch Alert diffusely confused Afro-Cam[place]onian female appears stated age, she has normoactive, affect show some increased range intensity is somewhat irritable speech rate and rhythm or increases markedly disorganized tangential circumstantial, there no auditory hallucinations noted no delusions noted insight and judgment is very poor cognition is marginal Pt Condition on Discharge: Stable Discharge Disposition: ACLF/TAO Discharge Instructions Diet Instructions: Diabetic Diet Activities you can perform: Regular-No Restrictions Scheduled Appointment: follow-alfa plascencia Appointment Date: May 11, 2016 Appointment Time: 2:00pm Discharge Time <= 30 minutes Discharge/Advance Care Plan Health Problems: (1) Dementia with behavioral disturbance Goals to promote your health * To prevent worsening of your condition and complications * To maintain your health at the optimal level Directions to meet your goals Take your medications as prescribed Follow your dietary instruction Follow activity as directed Keep your appointments as scheduled Take your immunizations and boosters as scheduled If your symptoms worsen call your PCP, if no PCP go to Urgent Care Center or Emergency Room For 27/11 questions related to your inpatient stay or results of tests pending at discharge, please contact Dr. Alphonso Perez at Smoking is Dangerous to Your Health. Avoid second hand smoking Problem Qualifiers (1) Dementia with behavioral disturbance: Qualified Code: F03.91 - Dementia with behavioral disturbance, unspecified dementia type Alphonso Perez MD May 11, 2016 09:27
== END 2016-05-11 13:35 | DRG 884 ==
LOC: NEPJ 13:36 → NEDA 21:33 → H250 22:00
PROVIDERS: ADMIT Psychiatry & Neurology Psychiatry; ATTEND Psychiatry & Neurology Psychiatry
DX: F03.91 Unspecified dementia, unspecified severity, with behavioral disturbance (principal); E11.22 Type 2 diabetes mellitus with diabetic chronic kidney disease; N18.3 Chronic kidney disease, stage 3 (moderate); D64.9 Anemia, unspecified; E03.9 Hypothyroidism, unspecified; F20.9 Schizophrenia, unspecified; I12.9 Hypertensive chronic kidney disease with stage 1 through stage 4 chronic kidney disease, or unspecified chronic kidney disease; D72.819 Decreased white blood cell count, unspecified
CPT/HCPCS: 80048; 80061; 80301; 80320; 80329; 81001; 82948; 83036; 83735; 84443; 85025; 93005; G0479; J1200; J1630; J1815; J2060; Q0163

== ENCOUNTER 2016-05-12 14:15 | Inpatient (IN) | payer MEDICARE, MEDICAID ==
[~2016-05-12] VITALS: Ht 177.8 cm; Wt 88.0 kg
[~2016-05-12 14:15] MED LIST changes: -ABIL5TAB6 PO; -BACT800T5 PO; -BENZ2TAB PO; -BUSP5TAB PO; -DIVA125C PO; +ESCI20TA PO; -LEXA10TA PO; -LORA-373 PO; +MELA1TAB22 PO; -MEMA28CA PO; +RISP3 PO; +SERO100T PO; +SITA25 PO; -ZOFR4TAB PO
[2016-05-12 14:37] VITALS: BP 162/112; PULSE 102; RESP 22; TEMP 98; O2SAT 97
[2016-05-12 14:43] VITALS: BP 162/112; PULSE 98; RESP 20; O2SAT 98
[2016-05-12 14:54] VITALS: BP 188/84; PULSE 92; RESP 20; O2SAT 97
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
[2016-05-12] MEDS: LORazepam 1 MG TAB PO ONE ×2 (16:15→17:25)
[2016-05-12 18:24] VITALS: BP 174/81; PULSE 89; RESP 22; O2SAT 96
[2016-05-12] MEDS ORDERED: MAGNESIUM HYDROXIDE SUSP 30 ML CUP PO PRN (18:45)
[2016-05-12] MEDS ORDERED: LORazepam 0.5 MG TAB age > 65 yrs PO PRN (18:45)
[2016-05-12] MEDS ORDERED: ACETAMINOPHEN 325 MG TAB PO PRN (18:45)
[2016-05-12] MEDS ORDERED: ALUMINUM/MAGNESIUM/SIMETH 30 ML CUP PO PRN (18:45)
[2016-05-12 19:00] VITALS: BP 172/76; PULSE 85; RESP 20; TEMP 99.7
[2016-05-12] MEDS: MELATONIN 5 MG TAB PO SCH (21:00)
[2016-05-12] MEDS: traZODone HCL 50 MG TAB PO PRN (21:11)
[2016-05-12] MEDS: risperiDONE 3 MG TAB PO SCH (21:11)
[2016-05-12] MEDS: QUEtiapine FUMARATE 100 MG TAB PO SCH (21:11)
[2016-05-13] MEDS: LEVOTHYROXINE SODIUM 25 MCG TAB PO SCH (05:55)
[2016-05-13 06:34] VITALS: BP 127/61; PULSE 77; RESP 16; TEMP 98.6; O2SAT 97
[2016-05-13] MEDS ORDERED: diphenhydrAMINE HCL 50 MG CAP PO PRN (07:30)
[2016-05-13] MEDS ORDERED: ALUMINUM/MAGNESIUM/SIMETH 30 ML CUP PO PRN (07:30)
[2016-05-13] MEDS ORDERED: MAGNESIUM HYDROXIDE SUSP 30 ML CUP PO PRN (07:30)
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
[2016-05-13 08:43] LABS: ANION GAP 7 MEQ/L (5-15); BICARBONATE 27.1 MEQ/L (21.0-32.0); BLOOD UREA NITROGEN 16 MG/DL (7-18); CHLORIDE 107 MEQ/L (98-107); GLOMERULAR FILTRATION RATE 46 ML/MIN (>89); POTASSIUM 4.1 MEQ/L (3.5-5.1); SODIUM (NA) 141 MEQ/L (136-145)
[2016-05-13 08:44] LABS: HDL CHOLESTEROL 52.7 MG/DL (40.0-60.0); LDL CHOLESTEROL 66 MG/DL (0-99)
[2016-05-13] MEDS ORDERED: ESCITALOPRAM OXALATE 20 MG TAB PO SCH (09:00)
[2016-05-13] MEDS ORDERED: amLODIPine BESYLATE 5 MG TAB PO SCH (09:00)
[2016-05-13] MEDS ORDERED: LEVOTHYROXINE SODIUM 25 MCG TAB PO SCH (09:00)
[2016-05-13] MEDS ORDERED: ASPIRIN EC 81 MG TABEC PO SCH (09:00)
[2016-05-13] MEDS ORDERED: PANTOPRAZOLE SOD 20 MG DELAYED RELEASE TAB PO SCH (09:00)
[2016-05-13] MEDS ORDERED: risperiDONE 3 MG TAB PO SCH (09:00)
[2016-05-13] MEDS: LORazepam 2 MG/ML VIAL - age > 65 yrs IM PRN (09:05)
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
[2016-05-13] MEDS: amLODIPine BESYLATE 5 MG TAB PO SCH (11:01)
[2016-05-13] MEDS: PANTOPRAZOLE SOD 20 MG DELAYED RELEASE TAB PO SCH (11:01)
[2016-05-13] MEDS: risperiDONE 3 MG TAB PO SCH ×2 (11:01→21:19)
[2016-05-13] MEDS: ESCITALOPRAM OXALATE 20 MG TAB PO SCH (11:01)
[2016-05-13] MEDS: ASPIRIN EC 81 MG TABEC PO SCH (11:01)
[2016-05-13 14:24] LABS: HEMOGLOBIN A1a 0.9 %; HEMOGLOBIN A1b 0.4 %; HEMOGLOBIN Ao 54.7 %; HEMOGLOBIN F 0.9 %; HEMOGLOBIN LA1C 1.2 %; HEMOGLOBIN P3 2.2 %
[2016-05-13 19:28] VITALS: BP 139/60; PULSE 91; RESP 17; TEMP 98; O2SAT 97
[2016-05-13] MEDS ORDERED: QUEtiapine FUMARATE 100 MG TAB PO SCH (21:00)
[2016-05-13] MEDS ORDERED: MELATONIN 5 MG TAB PO SCH (21:00)
[2016-05-13] MEDS: QUEtiapine FUMARATE 100 MG TAB PO SCH (21:19)
[2016-05-13] MEDS: MELATONIN 5 MG TAB PO SCH (21:19)
[2016-05-14 05:37] VITALS: BP 135/68; PULSE 76; RESP 22; TEMP 97.7; O2SAT 100
[2016-05-14] MEDS: LEVOTHYROXINE SODIUM 25 MCG TAB PO SCH ×2 (05:51→05:57)
[2016-05-14] MEDS: LORazepam 2 MG/ML VIAL - age > 65 yrs IM PRN (05:51)
[2016-05-14] MEDS: risperiDONE 3 MG TAB PO SCH ×2 (09:00→20:49)
[2016-05-14] MEDS: PANTOPRAZOLE SOD 20 MG DELAYED RELEASE TAB PO SCH (09:07)
[2016-05-14] MEDS: amLODIPine BESYLATE 5 MG TAB PO SCH (09:07)
[2016-05-14] MEDS: ESCITALOPRAM OXALATE 20 MG TAB PO SCH (09:07)
[2016-05-14] MEDS: ASPIRIN EC 81 MG TABEC PO SCH (09:08)
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
[2016-05-14] MEDS ORDERED: LORazepam 2 MG/ML VIAL IM ONE (14:45)
[2016-05-14 18:46] VITALS: BP 133/86; PULSE 60; RESP 18; TEMP 97.5; O2SAT 99
[2016-05-14] MEDS: QUEtiapine FUMARATE 100 MG TAB PO SCH (20:48)
[2016-05-14] MEDS: traZODone HCL 50 MG TAB PO PRN (20:48)
[2016-05-14] MEDS: MELATONIN 5 MG TAB PO SCH (21:00)
[2016-05-15] MEDS: LEVOTHYROXINE SODIUM 25 MCG TAB PO SCH (05:09)
[2016-05-15 06:47] VITALS: BP 114/57; PULSE 81; RESP 18; TEMP 97.6; O2SAT 97
[2016-05-15 07:51] LABS: ANION GAP 6 MEQ/L (5-15); BICARBONATE 26.7 MEQ/L (21.0-32.0); BLOOD UREA NITROGEN 23 MG/DL (7-18); CHLORIDE 110 MEQ/L (98-107); GLOMERULAR FILTRATION RATE 44 ML/MIN (>89); POTASSIUM 4.6 MEQ/L (3.5-5.1); SODIUM (NA) 143 MEQ/L (136-145)
[2016-05-15 07:52] LABS: HDL CHOLESTEROL 45.2 MG/DL (40.0-60.0); LDL CHOLESTEROL 62 MG/DL (0-99)
[2016-05-15] MEDS: risperiDONE 3 MG TAB PO SCH ×2 (09:11→20:53)
[2016-05-15] MEDS: PANTOPRAZOLE SOD 20 MG DELAYED RELEASE TAB PO SCH (09:11)
[2016-05-15] MEDS: hydrOXYzine HCL 50 MG TAB PO PRN ×2 (09:11→22:10)
[2016-05-15] MEDS: ASPIRIN EC 81 MG TABEC PO SCH (09:11)
[2016-05-15] MEDS: ESCITALOPRAM OXALATE 20 MG TAB PO SCH (09:11)
[2016-05-15] MEDS: amLODIPine BESYLATE 5 MG TAB PO SCH (09:11)
[2016-05-15 12:53] LABS: HEMOGLOBIN A1b 0.4 %; HEMOGLOBIN Ao 54.4 %; HEMOGLOBIN F 0.9 %; HEMOGLOBIN LA1C 1.3 %; HEMOGLOBIN P3 2.3 %
--- NOTE | 2016-05-15 13:37 | HHI.PR ---
Subjective Remarks Follow-up visit hypertension, DM 2, hypothyroidism, CKD. seen today. Sitting in a chair. More calm than usual. Confused but responsive. Able to follow commands. States she is doing well. Complaints of constipation requesting for laxatives. Denies pain and discomfort. Denies SOB/ dyspnea. Denies chestpain, palpitations, headaches, dizziness. Denies fevers, chills, n/v /d. Objective Vitals Vital Signs Date Time Temp Pulse Resp B/P Pulse Ox O2 Delivery O2 Flow Rate FiO2 05/15/16 06:47 97.6 81 18 114/57 97 05/14/16 18:46 97.5 60 18 133/86 99 I/O 05/14/16 05/14/16 05/14/16 05/15/16 05/15/16 05/15/16 07:00 15:00 23:00 07:00 15:00 23:00 Intake Total 0 ml 600 ml 360 ml Balance 0 ml 600 ml 360 ml Intake Oral 0 ml 600 ml 360 ml # Voids 2 Result Diagram: 05/15/16 0642 Objective Remarks GENERAL: This is a well-nourished, well-developed patient, in no apparent distress. SKIN: No rashes, ecchymoses or lesions. Cool and dry. HEAD: Atraumatic. Normocephalic. No temporal or scalp tenderness. EYES: Pupils equal round and reactive. Extraocular motions intact. No scleral icterus. No injection or drainage. ENT: Nose without bleeding,. Throat without erythema. Uvula midline. Airway patent. NECK: Trachea midline. No JVD or lymphadenopathy. Supple, nontender, no meningeal signs. CARDIOVASCULAR: Regular rate and rhythm without murmurs, gallops, or rubs. RESPIRATORY: Clear to auscultation. Breath sounds equal bilaterally. No wheezes , rales, or rhonchi. GASTROINTESTINAL: Abdomen soft, non-tender, nondistended. Bowel sounds hypoactive 4. MUSCULOSKELETAL: Extremities without clubbing, cyanosis, or edema. No joint tenderness, effusion, or edema noted. No calf tenderness. Negative Homans sign bilaterally. NEUROLOGICAL: Awake and alert. Confused. Oriented to person only. Motor and sensory grossly within normal limits. Normal speech. A/P Problem List: (1) Schizophrenia ICD Code: F20.9 Status: Acute (2) Dementia with behavioral disturbance ICD Code: F03.91 Status: Acute (3) Renal insufficiency ICD Code: N28.9 Status: Chronic (4) Hypertension ICD Code: I10 Status: Chronic (5) DM type 2 (diabetes mellitus, type 2) ICD Code: E11.9 Status: Acute Assessment and Plan This is a 75-year-old female patient with a past medical history which includes schizophrenia, dementia, hypertension chronic kidney disease and hypothyroidism. Readmitted to inpatient psychiatry unit under Bellamy act secondary to aggressive behavior. Consulted for medical management. Schizophrenia, dementia with aggressive behavior- inch by psychiatry team DM 2 - latest hemoglobin A1c 04/2016 6.7 - Diabetic diet recommended - Continue Januvia Hypertension continue patient's home medication of Norvasc, ASA -Monitor BP trend Hypothyroidism continue patient's home medication of Synthroid Chronic kidney disease 3 - BRICK CLEANER 1.14, EGR 46. Reviewed chart baseline creatinine at 1.19-1.20's - avoid nephrotoxins Constipation - spoke with RN she will give MOM. Senna when necessary. DVT Prop early ambulation Discuss with patient, RN Stable from Hospitalist standpoint. We will sign off. Reconsult as needed. Written by Jay Farmer, acting as scribe for Dr. Cochran on 05/15/16 at 14: 35. Attending Statement The documentation accurately reflects the work performed [id number] by me on at 14:35. Problem Qualifiers (1) Schizophrenia: Qualified Code: F20.9 - Schizophrenia, unspecified type (2) Dementia with behavioral disturbance: (3) DM type 2 (diabetes mellitus, type 2): Jay Welch May 15, 2016 13:37 Laureano John MD May 25, 2016 02:03
--- NOTE | 2016-05-15 14:56 | HHI.PYPN ---
Subjective Remarks Patient discussed with treatment team, chart review, seen on unit. Patient remains confused disoriented, but is redirectable, no significant behavior problems at the present time Review of Systems Except as stated in HPI: all other systems reviewed are Neg Objective Alert: Yes [place]: Person Mood: Agitated, Calm Affect: Restricted Memory Intact: Comment Hallucinations: Other (denies) Delusions: No Delusion Type: Other (vigilant) Suicidal: Ideation (denies) Homicidal: Ideation (denies) Insight/Judgement Very poor Labs Test 05/15/16 06:42 Sodium Level 143 MEQ/L Potassium Level 4.6 MEQ/L Chloride Level 110 MEQ/L Carbon Dioxide Level 26.7 MEQ/L Anion Gap 6 MEQ/L Blood Urea Nitrogen 23 MG/DL Creatinine 1.19 MG/DL Estimat Glomerular Filtration 44 ML/MIN Rate Random Glucose 137 MG/DL Hemoglobin A1c 6.0 % Calcium Level 8.9 MG/DL Triglycerides Level 57 MG/DL Cholesterol Level 119 MG/DL LDL Cholesterol 62 MG/DL HDL Cholesterol 45.2 MG/DL Cholesterol/HDL Ratio 2.63 RATIO Vitals/IOs Vital Signs Date Time Temp Pulse Resp B/P Pulse Ox O2 Delivery O2 Flow Rate FiO2 05/15/16 06:47 97.6 81 18 114/57 97 05/12/16 18:24 Room Air Intake and Output 05/14/16 05/14/16 05/15/16 08:00 16:00 00:00 Intake Total 0 ml 600 ml Balance 0 ml 600 ml Assessment & Plan Problem List: (1) Dementia with behavioral disturbance ICD Code: F03.91 (2) Schizophrenia ICD Code: F20.9 Assessment & Plan Patient continues confused demented no behavior problems are softer, compliant medication Justification for Cont. Inpt. With this time patient would severely decompensated placed in a lower level of care Discharge Planning To be determined Request HC Surrog/Guard Advoc?: Yes Problem Qualifiers (1) Dementia with behavioral disturbance: Alphonso Perez MD May 15, 2016 14:56
[2016-05-15] MEDS ORDERED: DOCUSATE SODIUM 50 MG/SENNA 8.6 MG TAB PO PRN (15:00)
[2016-05-15 18:40] VITALS: BP 160/70; PULSE 77; RESP 18; TEMP 97.7; O2SAT 97
[2016-05-15] MEDS: MELATONIN 5 MG TAB PO SCH (20:52)
[2016-05-15] MEDS: QUEtiapine FUMARATE 100 MG TAB PO SCH (20:53)
[2016-05-15] MEDS: traZODone HCL 50 MG TAB PO PRN (23:42)
[2016-05-16] MEDS: LEVOTHYROXINE SODIUM 25 MCG TAB PO SCH ×2 (05:15→05:24)
[2016-05-16] MEDS: diphenhydrAMINE HCL 50 MG/ML VIAL - HS PRN IM (06:23)
[2016-05-16] MEDS: LORazepam 2 MG/ML VIAL - age > 65 yrs IM PRN (06:23)
[2016-05-16] MEDS: ASPIRIN EC 81 MG TABEC PO SCH (09:24)
[2016-05-16] MEDS: risperiDONE 3 MG TAB PO SCH ×2 (09:24→20:45)
[2016-05-16] MEDS: ESCITALOPRAM OXALATE 20 MG TAB PO SCH (09:24)
[2016-05-16] MEDS: amLODIPine BESYLATE 5 MG TAB PO SCH (09:24)
[2016-05-16] MEDS: PANTOPRAZOLE SOD 20 MG DELAYED RELEASE TAB PO SCH (09:24)
--- NOTE | 2016-05-16 11:14 | HHI.PYPN ---
Subjective Remarks Patient seen in day room with nurse Maliha, patient looking out windows as if seeing somebody patient appeared to be shadow boxing and mumbling to herself, then turned around and sit down in her chair continuing mumbling irritable, did not recognize me when I approached her. Her responses also markedly disorganized tangential circumstantial angry and labile. Staff also states patient did not sleep well last night. Will increase at bedtime Seroquel to 300 mg Review of Systems Except as stated in HPI: all other systems reviewed are Neg Objective Alert: Yes [place]: Person Mood: Agitated, Calm Affect: Restricted Memory Intact: Comment Hallucinations: Other (denies) Delusions: No Delusion Type: Other (vigilant) Suicidal: Ideation (denies) Homicidal: Ideation (denies) Insight/Judgement Very poor Vitals/IOs Vital Signs Date Time Temp Pulse Resp B/P Pulse Ox O2 Delivery O2 Flow Rate FiO2 05/15/16 18:40 97.7 77 18 160/70 97 05/12/16 18:24 Room Air Intake and Output 05/15/16 05/15/16 05/16/16 08:00 16:00 00:00 Intake Total 1200 ml 1620 ml Balance 1200 ml 1620 ml Assessment & Plan Problem List: (1) Dementia with behavioral disturbance ICD Code: F03.91 (2) Schizophrenia ICD Code: F20.9 Assessment & Plan Estimated LOS: days patient continue psychotic confused and disorganized. See medication changes above Justification for Cont. Inpt. At this time patient would significantly decompensated placed in a lower level of care Discharge Planning To be determined Request HC Surrog/Guard Advoc?: Yes Problem Qualifiers (1) Dementia with behavioral disturbance: Alphonso Perez MD May 16, 2016 11:14
[2016-05-16] MEDS: LORazepam 2 MG/ML VIAL IM PRN (12:22)
[2016-05-16 19:52] VITALS: BP 137/69; PULSE 84; RESP 20; TEMP 96.4; O2SAT 96
[2016-05-16] MEDS: QUEtiapine FUMARATE 100 MG TAB PO SCH (20:44)
[2016-05-16] MEDS: hydrOXYzine HCL 50 MG TAB PO PRN (20:45)
[2016-05-16] MEDS: traZODone HCL 50 MG TAB PO PRN (20:45)
[2016-05-16] MEDS: MELATONIN 5 MG TAB PO SCH (21:00)
[2016-05-17 05:32] VITALS: BP 120/58; PULSE 78; RESP 16; TEMP 97.9; O2SAT 97
[2016-05-17] MEDS: LEVOTHYROXINE SODIUM 25 MCG TAB PO SCH (05:35)
[2016-05-17] MEDS: amLODIPine BESYLATE 5 MG TAB PO SCH (09:00)
[2016-05-17] MEDS: risperiDONE 3 MG TAB PO SCH ×2 (09:00→20:08)
[2016-05-17 10:35] VITALS: BP 113/57; PULSE 76; RESP 15
--- NOTE | 2016-05-17 10:55 | HHI.PYPN ---
Subjective Remarks Patient seen in room with nurse Daysi, patient somewhat sedated this morning. Perhaps with an adjustment to the increase her at bedtime Seroquel. Patient is arousable to irritable and confused. Patient scheduled for [employer] court tomorrow Review of Systems Except as stated in HPI: all other systems reviewed are Neg Objective Alert: Yes [place]: Person Mood: Agitated, Calm Affect: Restricted Memory Intact: Comment Hallucinations: Other (denies) Delusions: No Delusion Type: Other (vigilant) Suicidal: Ideation (denies) Homicidal: Ideation (denies) Insight/Judgement Very poor Vitals/IOs Vital Signs Date Time Temp Pulse Resp B/P Pulse Ox O2 Delivery O2 Flow Rate FiO2 05/17/16 10:35 76 15 113/57 05/17/16 05:32 97.9 97 Intake and Output 05/16/16 05/16/16 05/17/16 08:00 16:00 00:00 Intake Total 840 ml 100 ml Balance 840 ml 100 ml Assessment & Plan Problem List: (1) Dementia with behavioral disturbance ICD Code: F03.91 (2) Schizophrenia ICD Code: F20.9 Assessment & Plan Estimated LOS: days patient continues diffusely confused psychotic, scheduled for [place] [address] tomorrow Justification for Cont. Inpt. At this time patient was significantly decompensate if placed in a lower level of care Discharge Planning To be determined Request HC Surrog/Guard Advoc?: Yes Problem Qualifiers (1) Dementia with behavioral disturbance: Alphonso Perez MD May 17, 2016 10:55
[2016-05-17] MEDS: ASPIRIN EC 81 MG TABEC PO SCH (12:34)
[2016-05-17] MEDS: PANTOPRAZOLE SOD 20 MG DELAYED RELEASE TAB PO SCH (12:39)
[2016-05-17] MEDS: ESCITALOPRAM OXALATE 20 MG TAB PO SCH (12:39)
[2016-05-17 19:42] VITALS: BP 133/60; PULSE 86; RESP 18; TEMP 98.4; O2SAT 99
[2016-05-17] MEDS: QUEtiapine FUMARATE 100 MG TAB PO SCH (20:08)
[2016-05-17] MEDS: MELATONIN 5 MG TAB PO SCH (20:08)
[2016-05-18] MEDS: LEVOTHYROXINE SODIUM 25 MCG TAB PO SCH (06:05)
[2016-05-18 06:36] VITALS: BP 141/67; PULSE 77; RESP 16; TEMP 98; O2SAT 98
[2016-05-18] MEDS: LORazepam 2 MG/ML VIAL IM PRN (07:28)
[2016-05-18] MEDS: risperiDONE 3 MG TAB PO SCH ×2 (09:52→20:52)
[2016-05-18] MEDS: PANTOPRAZOLE SOD 20 MG DELAYED RELEASE TAB PO SCH (09:52)
[2016-05-18] MEDS: ASPIRIN EC 81 MG TABEC PO SCH (09:52)
[2016-05-18] MEDS: amLODIPine BESYLATE 5 MG TAB PO SCH (09:52)
[2016-05-18] MEDS: ESCITALOPRAM OXALATE 20 MG TAB PO SCH (09:55)
--- NOTE | 2016-05-18 12:20 | HHI.PYPN ---
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 Patient continues loud confused disorganized, patient compliant medications Review of Systems Except as stated in HPI: all other systems reviewed are Neg Objective Alert: Yes [place]: Person Mood: Agitated, Calm Affect: Restricted Memory Intact: Comment Hallucinations: Other (denies) Delusions: No Delusion Type: Other (vigilant) Suicidal: Ideation (denies) Homicidal: Ideation (denies) Insight/Judgement Very poor Vitals/IOs Vital Signs Date Time Temp Pulse Resp B/P Pulse Ox O2 Delivery O2 Flow Rate FiO2 05/18/16 06:36 98.0 77 16 141/67 98 Intake and Output 05/17/16 05/17/16 05/18/16 08:00 16:00 00:00 Intake Total 720 ml 1200 ml Balance 720 ml 1200 ml Assessment & Plan Problem List: (1) Dementia with behavioral disturbance ICD Code: F03.91 (2) Schizophrenia ICD Code: F20.9 Assessment & Plan Estimated LOS: days patient continues confused demented and irritable Justification for Cont. Inpt. At this time patient will decompensate of placed a lower level of care Discharge Planning To be determined Request HC Surrog/Guard Advoc?: Yes Problem Qualifiers (1) Dementia with behavioral disturbance: Alphonso Perez MD May 18, 2016 12:20
[2016-05-18 19:28] VITALS: BP 129/60; PULSE 77; RESP 17; TEMP 97.7; O2SAT 98
[2016-05-18] MEDS: QUEtiapine FUMARATE 100 MG TAB PO SCH (20:52)
[2016-05-18] MEDS: MELATONIN 5 MG TAB PO SCH (20:52)
[2016-05-19] MEDS: diphenhydrAMINE HCL 50 MG CAP - HS PRN PO (00:39)
[2016-05-19] MEDS: LEVOTHYROXINE SODIUM 25 MCG TAB PO SCH (05:03)
[2016-05-19 06:00] VITALS: BP 141/77; PULSE 74; RESP 17; TEMP 97.2; O2SAT 98
[2016-05-19] MEDS: PANTOPRAZOLE SOD 20 MG DELAYED RELEASE TAB PO SCH (09:59)
[2016-05-19] MEDS: ESCITALOPRAM OXALATE 20 MG TAB PO SCH (09:59)
[2016-05-19] MEDS: risperiDONE 3 MG TAB PO SCH ×2 (09:59→21:00)
[2016-05-19] MEDS: amLODIPine BESYLATE 5 MG TAB PO SCH (09:59)
[2016-05-19] MEDS: ASPIRIN EC 81 MG TABEC PO SCH (09:59)
--- NOTE | 2016-05-19 12:36 | HHI.PYPN ---
Subjective Remarks Patient seen in dayroom with medical student Anna, patient continues loud disorganized confused at times somewhat intrusive. Though compliant with medications. For now continue treatment Review of Systems Except as stated in HPI: all other systems reviewed are Neg Objective Alert: Yes [place]: Person Mood: Agitated, Calm Affect: Restricted Memory Intact: Comment Hallucinations: Other (denies) Delusions: No Delusion Type: Other (vigilant) Suicidal: Ideation (denies) Homicidal: Ideation (denies) Insight/Judgement Very poor Vitals/IOs Vital Signs Date Time Temp Pulse Resp B/P Pulse Ox O2 Delivery O2 Flow Rate FiO2 05/19/16 06:00 97.2 74 17 141/77 98 Intake and Output 05/18/16 05/18/16 05/19/16 08:00 16:00 00:00 Intake Total 240 ml 720 ml Balance 240 ml 720 ml Assessment & Plan Problem List: (1) Dementia with behavioral disturbance ICD Code: F03.91 (2) Schizophrenia ICD Code: F20.9 Assessment & Plan Estimated LOS: days patient continues demented confused and intrusive, Justification for Cont. Inpt. At this time patient would significantly decompensate if placed in the lower level of care Discharge Planning To be determined Request HC Surrog/Guard Advoc?: Yes Problem Qualifiers (1) Dementia with behavioral disturbance: Alphonso Perez MD May 19, 2016 12:36
[2016-05-19 19:36] VITALS: BP 189/78; PULSE 82; RESP 18; TEMP 97.7; O2SAT 95
[2016-05-19] MEDS: QUEtiapine FUMARATE 100 MG TAB PO SCH (21:00)
[2016-05-19] MEDS: MELATONIN 5 MG TAB PO SCH (21:00)
[2016-05-20] MEDS: LEVOTHYROXINE SODIUM 25 MCG TAB PO SCH (06:00)
[2016-05-20 06:14] VITALS: BP 116/61; PULSE 62; RESP 16; TEMP 97.8; O2SAT 97
[2016-05-20] MEDS: risperiDONE 3 MG TAB PO SCH ×2 (09:34→20:54)
[2016-05-20] MEDS: ASPIRIN EC 81 MG TABEC PO SCH (09:34)
[2016-05-20] MEDS: ESCITALOPRAM OXALATE 20 MG TAB PO SCH (09:34)
[2016-05-20] MEDS: PANTOPRAZOLE SOD 20 MG DELAYED RELEASE TAB PO SCH (09:34)
[2016-05-20] MEDS: hydrOXYzine HCL 50 MG TAB PO PRN ×2 (09:35→20:53)
[2016-05-20] MEDS: amLODIPine BESYLATE 5 MG TAB PO SCH (09:35)
--- NOTE | 2016-05-20 12:43 | HHI.PYPN ---
Subjective Remarks Patient was seen and case discussed with nursing. Patient is alert and oriented 1. Patient is difficult to understand garbled speech. Alert and oriented 1. Behaving well on the unit. No complaints per nursing Objective Alert: Yes [place]: Person Mood: Agitated, Calm Affect: Restricted Memory Intact: Comment Hallucinations: Other (denies) Delusions: No Delusion Type: Other (vigilant) Suicidal: Ideation (denies) Homicidal: Ideation (denies) Insight/Judgement Poor Vitals/IOs Vital Signs Date Time Temp Pulse Resp B/P Pulse Ox O2 Delivery O2 Flow Rate FiO2 05/20/16 06:14 97.8 62 16 116/61 97 Intake and Output 05/19/16 05/19/16 05/20/16 08:00 16:00 00:00 Intake Total 1200 ml 600 ml Balance 1200 ml 600 ml Assessment & Plan Problem List: (1) Dementia with behavioral disturbance ICD Code: F03.91 (2) Schizophrenia ICD Code: F20.9 Assessment & Plan Continue current treatment plan Justification for Cont. Inpt. Patient will decompensate in a less restrictive setting Request HC Surrog/Guard Advoc?: Yes Problem Qualifiers (1) Dementia with behavioral disturbance: Zeus Hill DO May 20, 2016 12:42
[2016-05-20 18:00] VITALS: BP 145/65; PULSE 78; RESP 18; TEMP 98.3; O2SAT 98
[2016-05-20] MEDS: QUEtiapine FUMARATE 100 MG TAB PO SCH (20:53)
[2016-05-20] MEDS: MELATONIN 5 MG TAB PO SCH (20:54)
[2016-05-20] MEDS: traZODone HCL 50 MG TAB PO PRN (23:46)
[2016-05-21 05:55] VITALS: BP 132/60; PULSE 75; RESP 17; TEMP 98.1; O2SAT 100
[2016-05-21] MEDS: LEVOTHYROXINE SODIUM 25 MCG TAB PO SCH (06:00)
[2016-05-21] MEDS: ESCITALOPRAM OXALATE 20 MG TAB PO SCH (08:06)
[2016-05-21] MEDS: ASPIRIN EC 81 MG TABEC PO SCH (08:06)
[2016-05-21] MEDS: amLODIPine BESYLATE 5 MG TAB PO SCH (08:06)
[2016-05-21] MEDS: PANTOPRAZOLE SOD 20 MG DELAYED RELEASE TAB PO SCH (08:07)
[2016-05-21] MEDS: LORazepam 0.5 MG TAB PO PRN (08:07)
[2016-05-21] MEDS: risperiDONE 3 MG TAB PO SCH ×2 (08:07→21:55)
--- NOTE | 2016-05-21 12:42 | HHI.PYPN ---
Subjective Remarks Patient was seen and case discussed with nursing. Per nursing patient has been yelling nonsensical statements and responding to internal stimuli. During our interview she is apathetic with poor eye contact. Alert and oriented 1. Blood sugar has been stable and nursing was asking for dc order Objective Alert: Yes [place]: Person Mood: Agitated, Calm Affect: Restricted Memory Intact: Comment Hallucinations: Other (denies) Delusions: No Delusion Type: Other (vigilant) Suicidal: Ideation (denies) Homicidal: Ideation (denies) Insight/Judgement Poor Vitals/IOs Vital Signs Date Time Temp Pulse Resp B/P Pulse Ox O2 Delivery O2 Flow Rate FiO2 05/21/16 05:55 98.1 75 17 132/60 100 Intake and Output 05/20/16 05/20/16 05/21/16 08:00 16:00 00:00 Intake Total 0 ml 1080 ml 480 ml Balance 0 ml 1080 ml 480 ml Assessment & Plan Problem List: (1) Dementia with behavioral disturbance ICD Code: F03.91 (2) Schizophrenia ICD Code: F20.9 Assessment & Plan Continue current treatment plan Justification for Cont. Inpt. Patient will decompensate in a less restrictive setting Request HC Surrog/Guard Advoc?: Yes Problem Qualifiers (1) Dementia with behavioral disturbance: Zeus Hill DO May 21, 2016 12:41
[2016-05-21 18:00] VITALS: BP 118/58; PULSE 70; RESP 16; TEMP 98.6; O2SAT 99
[2016-05-21] MEDS: QUEtiapine FUMARATE 100 MG TAB PO SCH (21:55)
[2016-05-21] MEDS: MELATONIN 5 MG TAB PO SCH (21:55)
[2016-05-22] MEDS: LEVOTHYROXINE SODIUM 25 MCG TAB PO SCH (05:36)
[2016-05-22 05:47] VITALS: BP 129/61; PULSE 73; RESP 16; TEMP 97.7; O2SAT 98
[2016-05-22] MEDS: ESCITALOPRAM OXALATE 20 MG TAB PO SCH (08:51)
[2016-05-22] MEDS: ASPIRIN EC 81 MG TABEC PO SCH (08:51)
[2016-05-22] MEDS: amLODIPine BESYLATE 5 MG TAB PO SCH (08:52)
[2016-05-22] MEDS: PANTOPRAZOLE SOD 20 MG DELAYED RELEASE TAB PO SCH (08:52)
[2016-05-22] MEDS: risperiDONE 3 MG TAB PO SCH ×2 (08:52→20:07)
[2016-05-22] MEDS: LORazepam 0.5 MG TAB PO PRN (08:53)
--- NOTE | 2016-05-22 15:41 | HHI.PYPN ---
Subjective Remarks Patient discussed with treatment team and medical student Gretchen, chart reviewed, patient seen on unit. Patient continues to isolate mainly in bed calm quiet but very poor verbal output with me though at times staff states she is more verbal and confusing. Compliant medications. Review of Systems Except as stated in HPI: all other systems reviewed are Neg Objective Alert: Yes [place]: Person Mood: Agitated, Calm Affect: Restricted Memory Intact: Comment Hallucinations: Other (denies) Delusions: No Delusion Type: Other (vigilant) Suicidal: Ideation (denies) Homicidal: Ideation (denies) Insight/Judgement Very poor Vitals/IOs Vital Signs Date Time Temp Pulse Resp B/P Pulse Ox O2 Delivery O2 Flow Rate FiO2 05/22/16 05:47 97.7 73 16 129/61 98 Intake and Output 05/21/16 05/21/16 05/22/16 08:00 16:00 00:00 Intake Total 0 ml 1800 ml 440 ml Balance 0 ml 1800 ml 440 ml Assessment & Plan Problem List: (1) Dementia with behavioral disturbance ICD Code: F03.91 (2) Schizophrenia ICD Code: F20.9 Assessment & Plan Estimated LOS: days patient continues confused disoriented but isolating more at this time Justification for Cont. Inpt. At this time patient will decompensate if placed in a lower level of care Discharge Planning To be determined Request HC Surrog/Guard Advoc?: Yes Problem Qualifiers (1) Dementia with behavioral disturbance: Alphonso Perez MD May 22, 2016 15:41
[2016-05-22 18:35] VITALS: BP 121/61; PULSE 77; RESP 16; TEMP 97.9; O2SAT 99
[2016-05-22] MEDS: QUEtiapine FUMARATE 100 MG TAB PO SCH (20:07)
[2016-05-22] MEDS: MELATONIN 5 MG TAB PO SCH (20:07)
[2016-05-23] MEDS: diphenhydrAMINE HCL 50 MG/ML VIAL - HS PRN IM (01:12)
[2016-05-23] MEDS: diphenhydrAMINE HCL 50 MG CAP - HS PRN PO (01:25)
[2016-05-23] MEDS: traZODone HCL 50 MG TAB PO PRN (01:25)
[2016-05-23] MEDS: LORazepam 0.5 MG TAB PO PRN (01:25)
[2016-05-23] MEDS ORDERED: OLANZapine IM 10 MG VIAL IM ONE ×2 (02:45→04:28)
[2016-05-23] MEDS ORDERED: diphenhydrAMINE HCL 50 MG/ML VIAL IM ONE ×2 (04:32→17:00)
[2016-05-23] MEDS: LEVOTHYROXINE SODIUM 25 MCG TAB PO SCH (05:26)
[2016-05-23] MEDS: LORazepam 2 MG/ML VIAL IM PRN (07:34)
[2016-05-23] MEDS: ASPIRIN EC 81 MG TABEC PO SCH (08:12)
[2016-05-23] MEDS: amLODIPine BESYLATE 5 MG TAB PO SCH (08:24)
[2016-05-23] MEDS: ESCITALOPRAM OXALATE 20 MG TAB PO SCH (08:24)
[2016-05-23] MEDS: PANTOPRAZOLE SOD 20 MG DELAYED RELEASE TAB PO SCH (08:25)
[2016-05-23] MEDS: risperiDONE 3 MG TAB PO SCH ×2 (08:25→21:15)
--- NOTE | 2016-05-23 10:25 | HHI.PYPN ---
Subjective Remarks Patient seen and examined with counselor and nursing staff. Chart reviewed. Case discussed with nursing staff. Patient had to be transferred from the 2500 unit to the 2700 unit because of agitation. The patient required multiple ETO orders overnight. On my examination today, she is beginning to grow somewhat sedated because of the cumulative effect of the medications that she received. When I ask what transpired to lead to her agitation she says "people keep pressing they luck, aggravating me." She remains somewhat internally preoccupied. Somewhat paranoid about "germs on the sheets" of her bed. Besides the sedation, to be expected with the amount of medication she received , no evident side effects from medications. Review of Systems ROS Limitations: Psychotic, Poor Historian Other "I feel alright." No reported physical complaints. Objective Alert: Yes (somewhat sedated but easily arousable) [place]: Person Mood: Calm (presently calm) Affect: Flat Memory Intact: Comment (not formally assessed) Hallucinations: Other (appears internally preoccupied) Delusions: Yes Delusion Type: Paranoid Suicidal: Ideation (no SI voiced) Homicidal: Ideation (no HI voiced) Insight/Judgement Poor Remarks No new motoric abnormalities noted. Speech somewhat garbled, as at baseline. Thought process somewhat disorganized. Labs Labs reviewed. No new labs. Vitals/IOs Vital Signs Date Time Temp Pulse Resp B/P Pulse Ox O2 Delivery O2 Flow Rate FiO2 05/22/16 18:35 97.9 77 16 121/61 99 Intake and Output 05/22/16 05/22/16 05/23/16 08:00 16:00 00:00 Intake Total 0 ml 480 ml 960 ml Balance 0 ml 480 ml 960 ml Assessment & Plan Problem List: (1) Dementia with behavioral disturbance ICD Code: F03.91 (2) Schizophrenia ICD Code: F20.9 Assessment & Plan Patient was acutely worse agitation overnight. Cause unclear although the patient says that people were aggravating her. I will titrate bedtime dose of Seroquel since the agitation happened at night. I will also check an updated set of basic labs including a urinalysis to make sure that there is not some general medical cause for the agitation. Continue to monitor on the 2700 unit. Continue other medications and care as ordered. Justification for Cont. Inpt. 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
[2016-05-23] MEDS ORDERED: HALOPERIDOL LACTATE 5 MG/ML AMP IM ONE (16:00)
[2016-05-23 17:48] LABS: AUTOMATED NEUTROPHIL # 3.9 TH/MM3 (1.8-7.7); BASOPHIL % 0.4 % (0.0-2.0); EOSINOPHIL # 0.1 TH/MM3 (0-0.4); EOSINOPHIL % 1.2 % (0.0-4.0); HEMATOCRIT 37.7 % (35.0-46.0); HEMO FLAGS DIFF FINAL; LYMPH % 21.1 % (9.0-44.0); LYMPHOCYTE # 1.2 TH/MM3 (1.0-4.8); MEAN CELL VOLUME 93.9 FL (80.0-100.0); MEAN CORPUSCULAR HEMOGLOBIN 30.7 PG (27.0-34.0); MEAN CORPUSCULAR HGB CONC 32.7 % (32.0-36.0); MONO % 8.1 % (0.0-8.0); NEUT % 69.2 % (16.0-70.0); PLATELET COUNT 247 TH/MM3 (150-450); RED BLOOD COUNT 4.02 MIL/MM3 (4.00-5.30); RED CELL DISTRIBUTION WIDTH 12.8 % (11.6-17.2); WHITE BLOOD COUNT 5.7 TH/MM3 (4.0-11.0)
[2016-05-23 18:13] LABS: ALT (GPT) 24 U/L (10-53); ANION GAP 7 MEQ/L (5-15); AST (GOT) 17 U/L (15-37); BLOOD UREA NITROGEN 30 MG/DL (7-18); CHLORIDE 107 MEQ/L (98-107); GLOMERULAR FILTRATION RATE 38 ML/MIN (>89); POTASSIUM 4.2 MEQ/L (3.5-5.1); SODIUM (NA) 142 MEQ/L (136-145)
[2016-05-23 18:15] LABS: ALKALINE PHOSPHATASE 163 U/L (45-117); TOTAL BILIRUBIN ADULT 0.3 MG/DL (0.2-1.0)
[2016-05-23] MEDS: MELATONIN 5 MG TAB PO SCH (21:00)
[2016-05-23] MEDS: QUEtiapine FUMARATE 100 MG TAB PO SCH (21:16)
[2016-05-24 05:55] VITALS: BP 125/61; PULSE 70; RESP 18; TEMP 97.4; O2SAT 96
[2016-05-24] MEDS: LEVOTHYROXINE SODIUM 25 MCG TAB PO SCH (06:00)
[2016-05-24] MEDS: risperiDONE 3 MG TAB PO SCH ×2 (09:00→21:14)
[2016-05-24] MEDS: ASPIRIN EC 81 MG TABEC PO SCH (09:00)
[2016-05-24] MEDS: amLODIPine BESYLATE 5 MG TAB PO SCH (09:00)
[2016-05-24] MEDS: PANTOPRAZOLE SOD 20 MG DELAYED RELEASE TAB PO SCH (09:00)
[2016-05-24] MEDS: ESCITALOPRAM OXALATE 20 MG TAB PO SCH (09:00)
--- NOTE | 2016-05-24 10:43 | HHI.PYPN ---
Subjective Remarks Patient returned from unit 2700, patient seen in [place] with nurse Yesi, patient sitting in Emi chair calm confused though no behavior problems at this time. Medication review, at this time we'll continue to observe with no medication adjustment. However appears patient has been somewhat calmer past 24 hours will discontinue one-to-one observation placed on close observation with off unit privileges Review of Systems Except as stated in HPI: all other systems reviewed are Neg Objective Alert: Yes (somewhat sedated but easily arousable) [place]: Person Mood: Calm (presently calm) Affect: Flat Memory Intact: Comment (not formally assessed) Hallucinations: Other (appears internally preoccupied) Delusions: Yes Delusion Type: Paranoid Suicidal: Ideation (no SI voiced) Homicidal: Ideation (no HI voiced) Insight/Judgement Very poor Labs Test 05/23/16 17:32 White Blood Count 5.7 TH/MM3 Red Blood Count 4.02 MIL/MM3 Hemoglobin 12.3 GM/DL Hematocrit 37.7 % Mean Corpuscular Volume 93.9 FL Mean Corpuscular Hemoglobin 30.7 PG Mean Corpuscular Hemoglobin 32.7 % Concent Red Cell Distribution Width 12.8 % Platelet Count 247 TH/MM3 Mean Platelet Volume 8.0 FL Neutrophils (%) (Auto) 69.2 % Lymphocytes (%) (Auto) 21.1 % Monocytes (%) (Auto) 8.1 % Eosinophils (%) (Auto) 1.2 % Basophils (%) (Auto) 0.4 % Neutrophils # (Auto) 3.9 TH/MM3 Lymphocytes # (Auto) 1.2 TH/MM3 Monocytes # (Auto) 0.5 TH/MM3 Eosinophils # (Auto) 0.1 TH/MM3 Basophils # (Auto) 0.0 TH/MM3 CBC Comment DIFF FINAL Differential Comment Sodium Level 142 MEQ/L Potassium Level 4.2 MEQ/L Chloride Level 107 MEQ/L Carbon Dioxide Level 28.0 MEQ/L Anion Gap 7 MEQ/L Blood Urea Nitrogen 30 MG/DL Creatinine 1.35 MG/DL Estimat Glomerular Filtration 38 ML/MIN Rate Random Glucose 126 MG/DL Calcium Level 10.0 MG/DL Total Bilirubin 0.3 MG/DL Aspartate Amino Transf 17 U/L (AST/SGOT) Alanine Aminotransferase 24 U/L (ALT/SGPT) Alkaline Phosphatase 163 U/L Total Protein 8.2 GM/DL Albumin 4.1 GM/DL Vitals/IOs Vital Signs Date Time Temp Pulse Resp B/P Pulse Ox O2 Delivery O2 Flow Rate FiO2 05/24/16 05:55 97.4 70 18 125/61 96 Assessment & Plan Problem List: (1) Dementia with behavioral disturbance ICD Code: F03.91 (2) Schizophrenia ICD Code: F20.9 Assessment & Plan Estimated LOS: days patient continues confused, though no behavior problems since transferring care from 2700. For now we'll continue medication no change , change level of observation from 121 2 close option of off unit perhaps Justification for Cont. Inpt. At this time patient would severely decompensate if placed in the lower level of care Discharge Planning To be determined Request HC Surrog/Guard Advoc?: Yes Problem Qualifiers (1) Dementia with behavioral disturbance: (2) Schizophrenia: Qualified Code: F20.9 - Schizophrenia, unspecified type Alphonso Perez MD May 24, 2016 10:43
[2016-05-24 18:58] VITALS: BP 137/86; PULSE 104; TEMP 98; O2SAT 98
[2016-05-24] MEDS: MELATONIN 5 MG TAB PO SCH (21:14)
[2016-05-24] MEDS: QUEtiapine FUMARATE 100 MG TAB PO SCH (21:14)
[2016-05-24] MEDS: traZODone HCL 50 MG TAB PO PRN (22:04)
[2016-05-24] MEDS: diphenhydrAMINE HCL 50 MG CAP - HS PRN PO (22:04)
[2016-05-24] MEDS: LORazepam 0.5 MG TAB PO PRN (23:25)
[2016-05-25 06:27] VITALS: BP 123/56; PULSE 89; RESP 16; TEMP 98.3; O2SAT 92
[2016-05-25] MEDS: LEVOTHYROXINE SODIUM 25 MCG TAB PO SCH (06:32)
[2016-05-25] MEDS: ASPIRIN EC 81 MG TABEC PO SCH (09:01)
[2016-05-25] MEDS: PANTOPRAZOLE SOD 20 MG DELAYED RELEASE TAB PO SCH (09:02)
[2016-05-25] MEDS: amLODIPine BESYLATE 5 MG TAB PO SCH (09:02)
[2016-05-25] MEDS: risperiDONE 3 MG TAB PO SCH ×2 (09:02→20:26)
[2016-05-25] MEDS: ESCITALOPRAM OXALATE 20 MG TAB PO SCH (09:02)
--- NOTE | 2016-05-25 09:36 | HHI.PYPN ---
Subjective Remarks Patient seen in day room with nurse Lynn, chart review, patient continues markedly confused disoriented though behaviors is better at this point in time. Patient continues to needs significant interventions and assistance. Compliant medications Review of Systems Except as stated in HPI: all other systems reviewed are Neg Objective Alert: Yes (somewhat sedated but easily arousable) [place]: Person Mood: Calm (presently calm) Affect: Flat Memory Intact: Comment (not formally assessed) Hallucinations: Other (appears internally preoccupied) Delusions: Yes Delusion Type: Paranoid Suicidal: Ideation (no SI voiced) Homicidal: Ideation (no HI voiced) Insight/Judgement Very poor Vitals/IOs Vital Signs Date Time Temp Pulse Resp B/P Pulse Ox O2 Delivery O2 Flow Rate FiO2 05/25/16 06:27 98.3 89 16 123/56 92 Intake and Output 05/24/16 05/24/16 05/25/16 08:00 16:00 00:00 Intake Total 240 ml 1620 ml Balance 240 ml 1620 ml Assessment & Plan Problem List: (1) Dementia with behavioral disturbance ICD Code: F03.91 (2) Schizophrenia ICD Code: F20.9 Assessment & Plan Estimated LOS: days patient continues confused and demented, but this time behaviors are not a problem. Compliant medications. Justification for Cont. Inpt. At this time patient would significantly decompensated if place to the lower level of care Discharge Planning To be determined Request HC Surrog/Guard Advoc?: Yes Problem Qualifiers (1) Dementia with behavioral disturbance: (2) Schizophrenia: Qualified Code: F20.9 - Schizophrenia, unspecified type Alphonso Perez MD May 25, 2016 09:36
[2016-05-25] MEDS: LORazepam 0.5 MG TAB PO PRN (13:43)
[2016-05-25 18:51] VITALS: PULSE 79; RESP 16; TEMP 98.2; O2SAT 100
[2016-05-25 19:26] VITALS: PULSE 79; RESP 16; TEMP 98.2; O2SAT 100
[2016-05-25] MEDS: MELATONIN 5 MG TAB PO SCH (20:25)
[2016-05-25] MEDS: QUEtiapine FUMARATE 100 MG TAB PO SCH (20:26)
[2016-05-25] MEDS: traZODone HCL 50 MG TAB PO PRN (20:27)
[2016-05-26] MEDS: LEVOTHYROXINE SODIUM 25 MCG TAB PO SCH (05:12)
[2016-05-26 06:28] VITALS: BP 114/56; PULSE 70; RESP 16; TEMP 97.7; O2SAT 97
[2016-05-26] MEDS: risperiDONE 3 MG TAB PO SCH (09:06)
[2016-05-26] MEDS: ESCITALOPRAM OXALATE 20 MG TAB PO SCH (09:06)
[2016-05-26] MEDS: ASPIRIN EC 81 MG TABEC PO SCH (09:06)
[2016-05-26] MEDS: amLODIPine BESYLATE 5 MG TAB PO SCH (09:06)
[2016-05-26] MEDS: PANTOPRAZOLE SOD 20 MG DELAYED RELEASE TAB PO SCH (09:06)
--- NOTE | 2016-05-26 12:21 | HHI.PYPN ---
Subjective Remarks Patient seen in her room with nurse Leah and medical student Anna. She had received appearance 2 overnight related to her poor sleep and increased irritability lability. Will increase at bedtime Seroquel 400 mg, increase Respinol to 4 mg twice a day. Review of Systems Except as stated in HPI: all other systems reviewed are Neg Objective Alert: Yes (somewhat sedated but easily arousable) [place]: Person Mood: Calm (presently calm) Affect: Flat Memory Intact: Comment (not formally assessed) Hallucinations: Other (appears internally preoccupied) Delusions: Yes Delusion Type: Paranoid Suicidal: Ideation (no SI voiced) Homicidal: Ideation (no HI voiced) Insight/Judgement Very poor Vitals/IOs Vital Signs Date Time Temp Pulse Resp B/P Pulse Ox O2 Delivery O2 Flow Rate FiO2 05/26/16 06:28 97.7 70 16 114/56 97 Assessment & Plan Problem List: (1) Dementia with behavioral disturbance ICD Code: F03.91 (2) Schizophrenia ICD Code: F20.9 Assessment & Plan Estimated LOS: days patient continues labile intrusive loud needing multiple when necessary's showing no insight into her disease. Please see medication changes above Justification for Cont. Inpt. At this time patient was significantly decompensate if placed at a lower level of care Discharge Planning To be determined Request HC Surrog/Guard Advoc?: Yes Problem Qualifiers (1) Dementia with behavioral disturbance: (2) Schizophrenia: Qualified Code: F20.9 - Schizophrenia, unspecified type Alphonso Perez MD May 26, 2016 12:21
[2016-05-26 18:00] VITALS: BP 142/72; PULSE 73; RESP 16; TEMP 97.3; O2SAT 99
[2016-05-26] MEDS: QUEtiapine FUMARATE 100 MG TAB PO SCH (21:43)
[2016-05-26] MEDS: MELATONIN 5 MG TAB PO SCH (21:43)
[2016-05-26] MEDS: risperiDONE 1 MG TAB PO SCH (21:43)
[2016-05-26] MEDS: LORazepam 0.5 MG TAB PO PRN (21:46)
[2016-05-27 05:30] VITALS: BP 104/56; PULSE 74; RESP 16; TEMP 98.8; O2SAT 96
[2016-05-27] MEDS: LEVOTHYROXINE SODIUM 25 MCG TAB PO SCH (05:52)
[2016-05-27] MEDS: hydrOXYzine HCL 50 MG TAB PO PRN ×2 (08:00→16:00)
[2016-05-27] MEDS: LORazepam 0.5 MG TAB PO PRN ×2 (08:00→16:00)
[2016-05-27] MEDS: amLODIPine BESYLATE 5 MG TAB PO SCH (08:43)
[2016-05-27] MEDS: ESCITALOPRAM OXALATE 20 MG TAB PO SCH (08:43)
[2016-05-27] MEDS: ASPIRIN EC 81 MG TABEC PO SCH (08:43)
[2016-05-27] MEDS: PANTOPRAZOLE SOD 20 MG DELAYED RELEASE TAB PO SCH (08:43)
[2016-05-27] MEDS: risperiDONE 1 MG TAB PO SCH ×2 (08:44→21:56)
--- NOTE | 2016-05-27 14:38 | HHI.PYPN ---
Subjective Remarks Pt seen and discussed with staff. She was agitated earlier (punching air) but calmed after medications. She reports that she feels better now ("calm, relaxing") No medication side effects. No SI/HI Objective Alert: Yes (somewhat sedated but easily arousable) [place]: Person Mood: Calm (presently calm) Affect: Flat Memory Intact: Comment (not formally assessed) Hallucinations: Other (appears internally preoccupied) Delusions: Yes Delusion Type: Paranoid Suicidal: Ideation (no SI voiced) Homicidal: Ideation (no HI voiced) Insight/Judgement poor Vitals/IOs Vital Signs Date Time Temp Pulse Resp B/P Pulse Ox O2 Delivery O2 Flow Rate FiO2 05/27/16 05:30 98.8 74 16 104/56 96 Intake and Output 05/26/16 05/26/16 05/27/16 08:00 16:00 00:00 Intake Total 480 ml 960 ml 960 ml Balance 480 ml 960 ml 960 ml Assessment & Plan Problem List: (1) Dementia with behavioral disturbance ICD Code: F03.91 (2) Schizophrenia ICD Code: F20.9 Assessment & Plan Continue current tx plan. Estimated LOS: days Justification for Cont. 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
[2016-05-27 19:58] VITALS: BP 168/70; PULSE 79; RESP 18; TEMP 97.5
[2016-05-27] MEDS: QUEtiapine FUMARATE 100 MG TAB PO SCH (21:56)
[2016-05-27] MEDS: MELATONIN 5 MG TAB PO SCH (21:56)
[2016-05-27] MEDS: traZODone HCL 50 MG TAB PO PRN (22:13)
[2016-05-28 05:36] VITALS: BP 149/69; PULSE 66; RESP 17; TEMP 97.8; O2SAT 99
[2016-05-28] MEDS: LEVOTHYROXINE SODIUM 25 MCG TAB PO SCH (06:09)
[2016-05-28] MEDS: ASPIRIN EC 81 MG TABEC PO SCH (08:58)
[2016-05-28] MEDS: risperiDONE 1 MG TAB PO SCH ×2 (08:58→21:02)
[2016-05-28] MEDS: PANTOPRAZOLE SOD 20 MG DELAYED RELEASE TAB PO SCH (08:58)
[2016-05-28] MEDS: amLODIPine BESYLATE 5 MG TAB PO SCH (08:58)
[2016-05-28] MEDS: ESCITALOPRAM OXALATE 20 MG TAB PO SCH (08:58)
--- NOTE | 2016-05-28 15:05 | HHI.PYPN ---
Subjective Remarks Pt seen and discussed with staff. She slept well last night. She has been in better behavioral control today and has not been agitated. She is compliant with medication. She reports that she feels 'relaxed' today. Objective Alert: Yes (somewhat sedated but easily arousable) [place]: Person Mood: Calm (presently calm) Affect: Flat Memory Intact: Comment (not formally assessed) Hallucinations: Other (appears internally preoccupied) Delusions: Yes Delusion Type: Paranoid (decreased) Suicidal: Ideation (no SI voiced) Homicidal: Ideation (no HI voiced) Insight/Judgement limited Vitals/IOs Vital Signs Date Time Temp Pulse Resp B/P Pulse Ox O2 Delivery O2 Flow Rate FiO2 05/28/16 05:36 97.8 66 17 149/69 99 Intake and Output 05/27/16 05/27/16 05/28/16 08:00 16:00 00:00 Intake Total 960 ml 840 ml Balance 960 ml 840 ml Assessment & Plan Problem List: (1) Dementia with behavioral disturbance ICD Code: F03.91 (2) Schizophrenia ICD Code: F20.9 Assessment & Plan Pt improving. Continue current tx plan. Estimated LOS: days Justification for Cont. Inpt. risk of decompensation. Request HC Surrog/Guard Advoc?: Yes Problem Qualifiers (1) Dementia with behavioral disturbance: (2) Schizophrenia: Qualified Code: F20.9 - Schizophrenia, unspecified type Stephani Escobar MD May 28, 2016 15:05
[2016-05-28 19:57] VITALS: BP 149/67; PULSE 83; RESP 17; O2SAT 99
[2016-05-28] MEDS: QUEtiapine FUMARATE 100 MG TAB PO SCH (21:02)
[2016-05-28] MEDS: traZODone HCL 50 MG TAB PO PRN (21:02)
[2016-05-28] MEDS: MELATONIN 5 MG TAB PO SCH (21:02)
[2016-05-29 05:13] VITALS: BP 115/56; PULSE 77; RESP 16; TEMP 98.7; O2SAT 100
[2016-05-29] MEDS: LEVOTHYROXINE SODIUM 25 MCG TAB PO SCH (05:43)
[2016-05-29] MEDS: ESCITALOPRAM OXALATE 20 MG TAB PO SCH (08:19)
[2016-05-29] MEDS: amLODIPine BESYLATE 5 MG TAB PO SCH (08:19)
[2016-05-29] MEDS: PANTOPRAZOLE SOD 20 MG DELAYED RELEASE TAB PO SCH (08:19)
[2016-05-29] MEDS: ASPIRIN EC 81 MG TABEC PO SCH (08:19)
[2016-05-29] MEDS: risperiDONE 1 MG TAB PO SCH ×2 (08:21→20:52)
--- NOTE | 2016-05-29 14:21 | HHI.PYPN ---
Subjective Remarks Patient discussed with treatment team, chart review, patient seen on unit. Patient compliant medications, somewhat calmer this morning continues to service and confused but more easily redirected. For now continue treatment Review of Systems Except as stated in HPI: all other systems reviewed are Neg Objective Alert: Yes (somewhat sedated but easily arousable) [place]: Person Mood: Calm (presently calm) Affect: Flat Memory Intact: Comment (not formally assessed) Hallucinations: Other (appears internally preoccupied) Delusions: Yes Delusion Type: Paranoid (decreased) Suicidal: Ideation (no SI voiced) Homicidal: Ideation (no HI voiced) Insight/Judgement Very poor Vitals/IOs Vital Signs Date Time Temp Pulse Resp B/P Pulse Ox O2 Delivery O2 Flow Rate FiO2 05/29/16 05:13 98.7 77 16 115/56 100 Intake and Output 05/28/16 05/28/16 05/29/16 08:00 16:00 00:00 Intake Total 240 ml 1020 ml 600 ml Balance 240 ml 1020 ml 600 ml Assessment & Plan Problem List: (1) Dementia with behavioral disturbance ICD Code: F03.91 (2) Schizophrenia ICD Code: F20.9 Assessment & Plan Estimated LOS: days patient continues confused demented though behaviors to soften somewhat, patient compliant. For now continue treatment Justification for Cont. Inpt. At this time patient would significantly decompensate if placed in the lower level of care Discharge Planning To be determined Request HC Surrog/Guard Advoc?: Yes Problem Qualifiers (1) Dementia with behavioral disturbance: (2) Schizophrenia: Qualified Code: F20.9 - Schizophrenia, unspecified type Alphonso Perez MD May 29, 2016 14:21
[2016-05-29] MEDS: hydrOXYzine HCL 50 MG TAB PO PRN ×2 (14:39→23:10)
[2016-05-29 18:00] VITALS: BP 117/59; PULSE 88; RESP 17; TEMP 98.4; O2SAT 98
[2016-05-29] MEDS: QUEtiapine FUMARATE 100 MG TAB PO SCH (20:53)
[2016-05-29] MEDS: traZODone HCL 50 MG TAB PO PRN (20:53)
[2016-05-29] MEDS: MELATONIN 5 MG TAB PO SCH (20:53)
[2016-05-29] MEDS: LORazepam 0.5 MG TAB PO PRN (23:10)
[2016-05-30 05:02] VITALS: BP 144/77; PULSE 76; RESP 16; TEMP 97.9; O2SAT 98
[2016-05-30] MEDS: LEVOTHYROXINE SODIUM 25 MCG TAB PO SCH (05:48)
[2016-05-30] MEDS: ASPIRIN EC 81 MG TABEC PO SCH (08:38)
[2016-05-30] MEDS: PANTOPRAZOLE SOD 20 MG DELAYED RELEASE TAB PO SCH (08:38)
[2016-05-30] MEDS: ESCITALOPRAM OXALATE 20 MG TAB PO SCH (08:38)
[2016-05-30] MEDS: amLODIPine BESYLATE 5 MG TAB PO SCH (08:38)
[2016-05-30] MEDS: risperiDONE 1 MG TAB PO SCH ×2 (08:39→22:08)
--- NOTE | 2016-05-30 13:20 | HHI.PYPN ---
Subjective Remarks Patient seen in day room with floor staff, patient calm pleasant with me though continues diffusely confused and disorganized. Patient compliant medications. Though sleep times continues to remain a problem. For now continue treatment Review of Systems Except as stated in HPI: all other systems reviewed are Neg Objective Alert: Yes (somewhat sedated but easily arousable) [place]: Person Mood: Calm (presently calm) Affect: Flat Memory Intact: Comment (not formally assessed) Hallucinations: Other (appears internally preoccupied) Delusions: Yes Delusion Type: Paranoid (decreased) Suicidal: Ideation (no SI voiced) Homicidal: Ideation (no HI voiced) Insight/Judgement Very poor Vitals/IOs Vital Signs Date Time Temp Pulse Resp B/P Pulse Ox O2 Delivery O2 Flow Rate FiO2 05/30/16 05:02 97.9 76 16 144/77 98 Intake and Output 05/29/16 05/29/16 05/30/16 08:00 16:00 00:00 Intake Total 0 ml 1560 ml Balance 0 ml 1560 ml Assessment & Plan Problem List: (1) Dementia with behavioral disturbance ICD Code: F03.91 (2) Schizophrenia ICD Code: F20.9 Assessment & Plan Estimated LOS: days patient continues confused demented that the present time is calm, she continues with some insomnia. Justification for Cont. Inpt. At this time patient was significantly decompensate if placed in the lower level of care Discharge Planning To be determined Request HC Surrog/Guard Advoc?: Yes Problem Qualifiers (1) Dementia with behavioral disturbance: (2) Schizophrenia: Qualified Code: F20.9 - Schizophrenia, unspecified type Alphonso Perez MD May 30, 2016 13:20
[2016-05-30 20:09] VITALS: BP 179/77; PULSE 81; RESP 16; TEMP 98.2; O2SAT 98
[2016-05-30] MEDS: diphenhydrAMINE HCL 50 MG CAP - HS PRN PO (22:08)
[2016-05-30] MEDS: MELATONIN 5 MG TAB PO SCH (22:08)
[2016-05-30] MEDS: QUEtiapine FUMARATE 100 MG TAB PO SCH (22:08)
[2016-05-31] MEDS: LEVOTHYROXINE SODIUM 25 MCG TAB PO SCH (05:54)
[2016-05-31 06:07] VITALS: BP 123/53; PULSE 71; RESP 16; TEMP 98.8; O2SAT 96
[2016-05-31] MEDS: risperiDONE 1 MG TAB PO SCH ×2 (08:46→22:02)
[2016-05-31] MEDS: ESCITALOPRAM OXALATE 20 MG TAB PO SCH (08:46)
[2016-05-31] MEDS: amLODIPine BESYLATE 5 MG TAB PO SCH (08:46)
[2016-05-31] MEDS: ASPIRIN EC 81 MG TABEC PO SCH (08:46)
[2016-05-31] MEDS: PANTOPRAZOLE SOD 20 MG DELAYED RELEASE TAB PO SCH (08:46)
--- NOTE | 2016-05-31 12:17 | HHI.PYPN ---
Subjective Remarks Patient seen on unit with nurse Lisbeth, chart review, patient somewhat calm with me though continues diffusely confused disoriented. The no behavior problems at this time Review of Systems Except as stated in HPI: all other systems reviewed are Neg Objective Alert: Yes (somewhat sedated but easily arousable) [place]: Person Mood: Calm (presently calm) Affect: Flat Memory Intact: Comment (not formally assessed) Hallucinations: Other (appears internally preoccupied) Delusions: Yes Delusion Type: Paranoid (decreased) Suicidal: Ideation (no SI voiced) Homicidal: Ideation (no HI voiced) Insight/Judgement Poor Vitals/IOs Vital Signs Date Time Temp Pulse Resp B/P Pulse Ox O2 Delivery O2 Flow Rate FiO2 05/31/16 06:07 98.8 71 16 123/53 96 Intake and Output 05/30/16 05/30/16 05/31/16 08:00 16:00 00:00 Intake Total 0 ml 1920 ml 600 ml Balance 0 ml 1920 ml 600 ml Assessment & Plan Problem List: (1) Dementia with behavioral disturbance ICD Code: F03.91 (2) Schizophrenia ICD Code: F20.9 Assessment & Plan Estimated LOS: days patient continues confused demented think psychotic features. Compliant medications Justification for Cont. Inpt. At this time patient was significantly decompensated placed in a lower level of care Discharge Planning To be determined Request HC Surrog/Guard Advoc?: Yes Problem Qualifiers (1) Dementia with behavioral disturbance: (2) Schizophrenia: Qualified Code: F20.9 - Schizophrenia, unspecified type Alphonso Perez MD May 31, 2016 12:17
[2016-05-31] MEDS: MELATONIN 5 MG TAB PO SCH (22:02)
[2016-05-31] MEDS: QUEtiapine FUMARATE 100 MG TAB PO SCH (22:02)
[2016-05-31 22:52] VITALS: BP 175/55; PULSE 81; RESP 16; TEMP 97.6; O2SAT 98
[2016-06-01] MEDS: LEVOTHYROXINE SODIUM 25 MCG TAB PO SCH (04:40)
[2016-06-01 06:39] VITALS: BP 131/62; PULSE 80; RESP 17; TEMP 96.9; O2SAT 100
[2016-06-01] MEDS: PANTOPRAZOLE SOD 20 MG DELAYED RELEASE TAB PO SCH (08:43)
[2016-06-01] MEDS: ESCITALOPRAM OXALATE 20 MG TAB PO SCH (08:43)
[2016-06-01] MEDS: amLODIPine BESYLATE 5 MG TAB PO SCH (08:43)
[2016-06-01] MEDS: ASPIRIN EC 81 MG TABEC PO SCH (08:43)
[2016-06-01] MEDS: risperiDONE 1 MG TAB PO SCH ×2 (08:43→20:51)
--- NOTE | 2016-06-01 10:23 | HHI.PYPN ---
Subjective Remarks Patient seen in day room with nurse Eduin, chart review, patient compliant medications. Patient continues confused disoriented with markedly disorganized speech. Though this time no significant behavioral problems Review of Systems Except as stated in HPI: all other systems reviewed are Neg Objective Alert: Yes (somewhat sedated but easily arousable) [place]: Person Mood: Calm (presently calm) Affect: Flat Memory Intact: Comment (not formally assessed) Hallucinations: Other (appears internally preoccupied) Delusions: Yes Delusion Type: Paranoid (decreased) Suicidal: Ideation (no SI voiced) Homicidal: Ideation (no HI voiced) Insight/Judgement Very poor Vitals/IOs Vital Signs Date Time Temp Pulse Resp B/P Pulse Ox O2 Delivery O2 Flow Rate FiO2 06/01/16 06:39 96.9 80 17 131/62 100 Intake and Output 05/31/16 05/31/16 06/01/16 08:00 16:00 00:00 Intake Total 240 ml Balance 240 ml Assessment & Plan Problem List: (1) Dementia with behavioral disturbance ICD Code: F03.91 (2) Schizophrenia ICD Code: F20.9 Assessment & Plan Estimated LOS: days patient continues confused demented, but no behavioral problems at this time Justification for Cont. Inpt. At this time patient would significantly decompensate if placed in a lower level of care Discharge Planning To be determined Request HC Surrog/Guard Advoc?: Yes Problem Qualifiers (1) Dementia with behavioral disturbance: (2) Schizophrenia: Qualified Code: F20.9 - Schizophrenia, unspecified type Alphonso Perez MD Jun 01, 2016 10:22
[2016-06-01] MEDS: LORazepam 0.5 MG TAB PO PRN (14:00)
[2016-06-01 20:00] VITALS: BP 147/92; PULSE 92; RESP 18; TEMP 96.7; O2SAT 98
[2016-06-01] MEDS: MELATONIN 5 MG TAB PO SCH (20:51)
[2016-06-01] MEDS: QUEtiapine FUMARATE 100 MG TAB PO SCH (20:51)
[2016-06-02] MEDS: LEVOTHYROXINE SODIUM 25 MCG TAB PO SCH (06:25)
[2016-06-02 06:34] VITALS: BP 102/52; PULSE 82; RESP 16; TEMP 98.1; O2SAT 99
[2016-06-02] MEDS: risperiDONE 1 MG TAB PO SCH ×2 (09:35→22:01)
[2016-06-02] MEDS: hydrOXYzine HCL 50 MG TAB PO PRN (09:35)
[2016-06-02] MEDS: LORazepam 0.5 MG TAB PO PRN (09:35)
[2016-06-02] MEDS: ESCITALOPRAM OXALATE 20 MG TAB PO SCH (09:36)
[2016-06-02] MEDS: ASPIRIN EC 81 MG TABEC PO SCH (09:36)
[2016-06-02] MEDS: PANTOPRAZOLE SOD 20 MG DELAYED RELEASE TAB PO SCH (09:36)
[2016-06-02] MEDS: amLODIPine BESYLATE 5 MG TAB PO SCH (09:36)
--- NOTE | 2016-06-02 11:58 | HHI.PYPN ---
Subjective Remarks Patient seen in day room with floor staff, chart review, patient calm with me though continues markedly disorganized and confused. Patient compliant medications. For now continue treatment Review of Systems Except as stated in HPI: all other systems reviewed are Neg Objective Alert: Yes (somewhat sedated but easily arousable) [place]: Person Mood: Calm (presently calm) Affect: Flat Memory Intact: Comment (not formally assessed) Hallucinations: Other (appears internally preoccupied) Delusions: Yes Delusion Type: Paranoid (decreased) Suicidal: Ideation (no SI voiced) Homicidal: Ideation (no HI voiced) Insight/Judgement Very poor Vitals/IOs Vital Signs Date Time Temp Pulse Resp B/P Pulse Ox O2 Delivery O2 Flow Rate FiO2 06/02/16 06:34 98.1 82 16 102/52 99 Intake and Output 06/01/16 06/01/16 06/02/16 08:00 16:00 00:00 Intake Total 1540 ml 960 ml Balance 1540 ml 960 ml Assessment & Plan Problem List: (1) Dementia with behavioral disturbance ICD Code: F03.91 (2) Schizophrenia ICD Code: F20.9 Assessment & Plan Estimated LOS: days patient is demented at times somewhat intrusive but overall calmer Justification for Cont. Inpt. If this and the patient was really decompensate the placed in a lower level of care Discharge Planning To be determined Request HC Surrog/Guard Advoc?: Yes Problem Qualifiers (1) Dementia with behavioral disturbance: (2) Schizophrenia: Qualified Code: F20.9 - Schizophrenia, unspecified type Alphonso Perez MD Jun 02, 2016 11:58
[2016-06-02 19:05] VITALS: BP 146/95; PULSE 83; RESP 18; TEMP 97.8; O2SAT 99
[2016-06-02] MEDS: MELATONIN 5 MG TAB PO SCH (22:01)
[2016-06-02] MEDS: QUEtiapine FUMARATE 100 MG TAB PO SCH (22:01)
[2016-06-03] MEDS: LEVOTHYROXINE SODIUM 25 MCG TAB PO SCH (05:02)
[2016-06-03 05:40] VITALS: BP 113/59; PULSE 83; RESP 18; TEMP 98; O2SAT 83
[2016-06-03] MEDS: amLODIPine BESYLATE 5 MG TAB PO SCH (08:49)
[2016-06-03] MEDS: PANTOPRAZOLE SOD 20 MG DELAYED RELEASE TAB PO SCH (08:49)
[2016-06-03] MEDS: ASPIRIN EC 81 MG TABEC PO SCH (08:50)
[2016-06-03] MEDS: risperiDONE 1 MG TAB PO SCH ×2 (08:50→20:26)
[2016-06-03] MEDS: ESCITALOPRAM OXALATE 20 MG TAB PO SCH (08:50)
--- NOTE | 2016-06-03 12:39 | HHI.PYPN ---
Subjective Remarks Patient was seen and case discussed with nursing. Patient is pleasant and cooperative with exam. Alert and oriented 1. She thinks that she is in college studying [employer] production. Compliant with medications. Behaving well on the unit. Largely seclusive to self Objective Alert: Yes (somewhat sedated but easily arousable) [place]: Person Mood: Calm (presently calm) Affect: Flat Memory Intact: Comment (not formally assessed) Hallucinations: Other (appears internally preoccupied) Delusions: Yes Delusion Type: Paranoid (decreased) Suicidal: Ideation (no SI voiced) Homicidal: Ideation (no HI voiced) Insight/Judgement Poor Vitals/IOs Vital Signs Date Time Temp Pulse Resp B/P Pulse Ox O2 Delivery O2 Flow Rate FiO2 06/03/16 05:40 98.0 83 18 113/59 83 Intake and Output 06/02/16 06/02/16 06/03/16 08:00 16:00 00:00 Intake Total 480 ml 960 ml Balance 480 ml 960 ml Assessment & Plan Problem List: (1) Dementia with behavioral disturbance ICD Code: F03.91 (2) Schizophrenia ICD Code: F20.9 Assessment & Plan Continue current treatment plan Justification for Cont. Inpt. Patient will decompensate outside of an inpatient setting Request HC Surrog/Guard Advoc?: Yes Problem Qualifiers (1) Dementia with behavioral disturbance: (2) Schizophrenia: Qualified Code: F20.9 - Schizophrenia, unspecified type Zeus Hill DO Jun 03, 2016 12:39
[2016-06-03 20:03] VITALS: BP 132/79; PULSE 82; RESP 16; TEMP 96.8; O2SAT 100
[2016-06-03] MEDS: QUEtiapine FUMARATE 100 MG TAB PO SCH (20:26)
[2016-06-03] MEDS: MELATONIN 5 MG TAB PO SCH (20:26)
[2016-06-04] MEDS: LEVOTHYROXINE SODIUM 25 MCG TAB PO SCH (05:49)
[2016-06-04 06:16] VITALS: BP 123/60; PULSE 83; RESP 18; TEMP 98.7; O2SAT 99
[2016-06-04] MEDS: amLODIPine BESYLATE 5 MG TAB PO SCH (08:55)
[2016-06-04] MEDS: ESCITALOPRAM OXALATE 20 MG TAB PO SCH (08:55)
[2016-06-04] MEDS: PANTOPRAZOLE SOD 20 MG DELAYED RELEASE TAB PO SCH (08:55)
[2016-06-04] MEDS: ASPIRIN EC 81 MG TABEC PO SCH (08:55)
[2016-06-04] MEDS: risperiDONE 1 MG TAB PO SCH ×2 (08:56→21:08)
[2016-06-04] MEDS: LORazepam 2 MG/ML VIAL IM PRN (11:00)
--- NOTE | 2016-06-04 12:28 | HHI.PYPN ---
Subjective Remarks Patient was seen and case discussed with nursing. Patient is pleasant and cooperative with exam. Remains oriented 1. Per nursing she was aggressive this morning though she is pleasant during the interview. Slept well. Denies suicidal ideations thought or plan. Remains confused thinking today she did that she is in the dormitory Objective Alert: Yes (somewhat sedated but easily arousable) [employer]: Person Mood: Calm (presently calm) Affect: Flat Memory Intact: Comment (not formally assessed) Hallucinations: Other (appears internally preoccupied) Delusions: Yes Delusion Type: Paranoid (decreased) Suicidal: Ideation (no SI voiced) Homicidal: Ideation (no HI voiced) Insight/Judgement Poor Vitals/IOs Vital Signs Date Time Temp Pulse Resp B/P Pulse Ox O2 Delivery O2 Flow Rate FiO2 06/04/16 06:16 98.7 83 18 123/60 99 Intake and Output 06/03/16 06/03/16 06/04/16 08:00 16:00 00:00 Intake Total 240 ml 1800 ml Balance 240 ml 1800 ml Assessment & Plan Problem List: (1) Dementia with behavioral disturbance ICD Code: F03.91 (2) Schizophrenia ICD Code: F20.9 Assessment & Plan Continue current treatment plan Justification for Cont. Inpt. Patient will decompensate outside of a less restrictive setting Request HC Surrog/Guard Advoc?: Yes Problem Qualifiers (1) Dementia with behavioral disturbance: (2) Schizophrenia: Qualified Code: F20.9 - Schizophrenia, unspecified type Zeus iHll DO Jun 04, 2016 12:28
[2016-06-04 19:42] VITALS: BP 134/63; PULSE 83; RESP 18; TEMP 98.2; O2SAT 98
[2016-06-04] MEDS: MELATONIN 5 MG TAB PO SCH (21:08)
[2016-06-04] MEDS: QUEtiapine FUMARATE 100 MG TAB PO SCH (21:08)
[2016-06-05 05:27] VITALS: BP 118/53; PULSE 81; RESP 16; TEMP 98.4; O2SAT 96
[2016-06-05] MEDS: LEVOTHYROXINE SODIUM 25 MCG TAB PO SCH (06:17)
[2016-06-05] MEDS: ESCITALOPRAM OXALATE 20 MG TAB PO SCH (08:47)
[2016-06-05] MEDS: PANTOPRAZOLE SOD 20 MG DELAYED RELEASE TAB PO SCH (08:47)
[2016-06-05] MEDS: amLODIPine BESYLATE 5 MG TAB PO SCH (08:47)
[2016-06-05] MEDS: risperiDONE 1 MG TAB PO SCH ×2 (08:47→20:37)
[2016-06-05] MEDS: ASPIRIN EC 81 MG TABEC PO SCH (08:48)
--- NOTE | 2016-06-05 16:47 | HHI.PYPN ---
Subjective Remarks Patient discussed with treatment team, chart reviewed, patient seen and unit. Patient continues confused demented intense irritable did needed medically necessary Ativan last night that helped somewhat, compliant medications Review of Systems Except as stated in HPI: all other systems reviewed are Neg Objective Alert: Yes (somewhat sedated but easily arousable) [place]: Person Mood: Calm (presently calm) Affect: Flat Memory Intact: Comment (not formally assessed) Hallucinations: Other (appears internally preoccupied) Delusions: Yes Delusion Type: Paranoid (decreased) Suicidal: Ideation (no SI voiced) Homicidal: Ideation (no HI voiced) Insight/Judgement Very poor Vitals/IOs Vital Signs Date Time Temp Pulse Resp B/P Pulse Ox O2 Delivery O2 Flow Rate FiO2 06/05/16 05:27 98.4 81 16 118/53 96 Intake and Output 06/04/16 06/04/16 06/05/16 08:00 16:00 00:00 Intake Total 960 ml 480 ml Balance 960 ml 480 ml Assessment & Plan Problem List: (1) Dementia with behavioral disturbance ICD Code: F03.91 (2) Schizophrenia ICD Code: F20.9 Assessment & Plan Estimated LOS: days patient continues confused demented at times irritable labile Justification for Cont. Inpt. At this time patient would significantly decompensate if placed on the lower level of care Discharge Planning To be determined Request HC Surrog/Guard Advoc?: Yes Problem Qualifiers (1) Dementia with behavioral disturbance: (2) Schizophrenia: Qualified Code: F20.9 - Schizophrenia, unspecified type Alphonso Perez MD Jun 05, 2016 16:47
[2016-06-05 19:37] VITALS: BP 118/62; PULSE 79; RESP 18; TEMP 98.7; O2SAT 97
[2016-06-05] MEDS: MELATONIN 5 MG TAB PO SCH (20:36)
[2016-06-05] MEDS: QUEtiapine FUMARATE 100 MG TAB PO SCH (20:36)
[2016-06-06 05:24] VITALS: BP 110/57; PULSE 76; RESP 18; TEMP 99.3; O2SAT 99
[2016-06-06] MEDS: LEVOTHYROXINE SODIUM 25 MCG TAB PO SCH (05:55)
[2016-06-06] MEDS: risperiDONE 1 MG TAB PO SCH ×2 (08:52→21:00)
[2016-06-06] MEDS: ASPIRIN EC 81 MG TABEC PO SCH (08:52)
[2016-06-06] MEDS: amLODIPine BESYLATE 5 MG TAB PO SCH (08:52)
[2016-06-06] MEDS: ESCITALOPRAM OXALATE 20 MG TAB PO SCH (08:52)
[2016-06-06] MEDS: PANTOPRAZOLE SOD 20 MG DELAYED RELEASE TAB PO SCH (08:52)
--- NOTE | 2016-06-06 11:34 | HHI.PYPN ---
Subjective Remarks Patient seen in day room with nurse Leah, patient continues confused disorganized but the intensity and intrusiveness of markedly decreased. She is compliant with medications and at this time no behavioral problems Review of Systems Except as stated in HPI: all other systems reviewed are Neg Objective Alert: Yes (somewhat sedated but easily arousable) [place]: Person Mood: Calm (presently calm) Affect: Flat Memory Intact: Comment (not formally assessed) Hallucinations: Other (appears internally preoccupied) Delusions: Yes Delusion Type: Paranoid (decreased) Suicidal: Ideation (no SI voiced) Homicidal: Ideation (no HI voiced) Insight/Judgement Very poor Vitals/IOs Vital Signs Date Time Temp Pulse Resp B/P Pulse Ox O2 Delivery O2 Flow Rate FiO2 06/06/16 05:24 99.3 76 18 110/57 99 Intake and Output 06/05/16 06/05/16 06/06/16 08:00 16:00 00:00 Intake Total 0 ml 720 ml 720 ml Balance 0 ml 720 ml 720 ml Assessment & Plan Problem List: (1) Dementia with behavioral disturbance ICD Code: F03.91 (2) Schizophrenia ICD Code: F20.9 Assessment & Plan Estimated LOS: days patient continues confused disoriented, compliant medications. At this time no behavioral problems Justification for Cont. Inpt. At this time patient would significantly decompensate if placed in a lower level of care Discharge Planning To be determined Request HC Surrog/Guard Advoc?: Yes Problem Qualifiers (1) Dementia with behavioral disturbance: (2) Schizophrenia: Qualified Code: F20.9 - Schizophrenia, unspecified type Alphonso Perez MD Jun 06, 2016 11:34
[2016-06-06] MEDS: LORazepam 2 MG/ML VIAL IM PRN (16:15)
[2016-06-06 19:00] VITALS: BP 147/69; PULSE 80; RESP 18; TEMP 98.2; O2SAT 100
[2016-06-06] MEDS: ACETAMINOPHEN 325 MG TAB PO PRN (21:00)
[2016-06-06] MEDS: MELATONIN 5 MG TAB PO SCH (21:00)
[2016-06-06] MEDS: QUEtiapine FUMARATE 100 MG TAB PO SCH (21:00)
[2016-06-06] MEDS: LORazepam 0.5 MG TAB PO PRN (21:00)
[2016-06-06] MEDS: diphenhydrAMINE HCL 50 MG CAP - HS PRN PO (21:00)
[2016-06-07 06:15] VITALS: BP 133/57; PULSE 74; RESP 15; TEMP 98.3; O2SAT 95
[2016-06-07] MEDS: ESCITALOPRAM OXALATE 20 MG TAB PO SCH (09:10)
[2016-06-07] MEDS: amLODIPine BESYLATE 5 MG TAB PO SCH (09:10)
[2016-06-07] MEDS: ASPIRIN EC 81 MG TABEC PO SCH (09:10)
[2016-06-07] MEDS: PANTOPRAZOLE SOD 20 MG DELAYED RELEASE TAB PO SCH (09:11)
[2016-06-07] MEDS: risperiDONE 1 MG TAB PO SCH ×2 (09:13→21:59)
--- NOTE | 2016-06-07 14:21 | HHI.PYPN ---
Subjective Remarks Patient seen and a room with nurse Margaret, chart review, patient calm pleasant with us markedly disorganized speaking with marked loose associations and confusing. Patient compliant medications Review of Systems Except as stated in HPI: all other systems reviewed are Neg Objective Alert: Yes (somewhat sedated but easily arousable) [place]: Person Mood: Calm (presently calm) Affect: Flat Memory Intact: Comment (not formally assessed) Hallucinations: Other (appears internally preoccupied) Delusions: Yes Delusion Type: Paranoid (decreased) Suicidal: Ideation (no SI voiced) Homicidal: Ideation (no HI voiced) Insight/Judgement Very poor Vitals/IOs Vital Signs Date Time Temp Pulse Resp B/P Pulse Ox O2 Delivery O2 Flow Rate FiO2 06/07/16 06:15 98.3 74 15 133/57 95 Intake and Output 06/06/16 06/06/16 06/07/16 08:00 16:00 00:00 Intake Total 360 ml 720 ml 600 ml Balance 360 ml 720 ml 600 ml Assessment & Plan Problem List: (1) Dementia with behavioral disturbance ICD Code: F03.91 (2) Schizophrenia ICD Code: F20.9 Assessment & Plan Estimated LOS: days patient continues markedly confused disoriented, though behaviors are somewhat calmer right now. Compliant medications. Justification for Cont. Inpt. At this time patient would significantly decompensate if placed in a lower level of care Discharge Planning To be determined Request HC Surrog/Guard Advoc?: Yes Problem Qualifiers (1) Dementia with behavioral disturbance: (2) Schizophrenia: Qualified Code: F20.9 - Schizophrenia, unspecified type Alphonso Perez MD Jun 07, 2016 14:21
[2016-06-07 19:09] VITALS: BP 118/58; PULSE 80; RESP 16; O2SAT 96
[2016-06-07] MEDS: QUEtiapine FUMARATE 100 MG TAB PO SCH (21:59)
[2016-06-07] MEDS: MELATONIN 5 MG TAB PO SCH (21:59)
[2016-06-08] MEDS: traZODone HCL 50 MG TAB PO PRN (00:35)
[2016-06-08 05:32] VITALS: BP 106/55; PULSE 75; RESP 18; TEMP 98
[2016-06-08] MEDS: LEVOTHYROXINE SODIUM 25 MCG TAB PO SCH (05:37)
[2016-06-08] MEDS: ESCITALOPRAM OXALATE 20 MG TAB PO SCH (08:08)
[2016-06-08] MEDS: ASPIRIN EC 81 MG TABEC PO SCH (08:09)
[2016-06-08] MEDS: risperiDONE 1 MG TAB PO SCH ×2 (08:09→21:30)
[2016-06-08] MEDS: PANTOPRAZOLE SOD 20 MG DELAYED RELEASE TAB PO SCH (08:12)
[2016-06-08] MEDS: amLODIPine BESYLATE 5 MG TAB PO SCH (08:12)
[2016-06-08 09:29] LABS: BASOPHIL % 0.4 % (0.0-2.0); EOSINOPHIL # 0.1 TH/MM3 (0-0.4); EOSINOPHIL % 1.4 % (0.0-4.0); HEMATOCRIT 34.5 % (35.0-46.0); HEMO FLAGS DIFF FINAL; LYMPH % 18.1 % (9.0-44.0); MEAN CELL VOLUME 92.9 FL (80.0-100.0); MEAN CORPUSCULAR HEMOGLOBIN 31.3 PG (27.0-34.0); MEAN CORPUSCULAR HGB CONC 33.7 % (32.0-36.0); MONO % 6.8 % (0.0-8.0); NEUT % 73.3 % (16.0-70.0); PLATELET COUNT 231 TH/MM3 (150-450); RED BLOOD COUNT 3.71 MIL/MM3 (4.00-5.30); RED CELL DISTRIBUTION WIDTH 12.6 % (11.6-17.2); WHITE BLOOD COUNT 5.4 TH/MM3 (4.0-11.0)
[2016-06-08 09:59] LABS: ALKALINE PHOSPHATASE 177 U/L (45-117); ALT (GPT) 22 U/L (10-53); ANION GAP 7 MEQ/L (5-15); AST (GOT) 16 U/L (15-37); BICARBONATE 28.8 MEQ/L (21.0-32.0); BLOOD UREA NITROGEN 29 MG/DL (7-18); CHLORIDE 103 MEQ/L (98-107); GLOMERULAR FILTRATION RATE 39 ML/MIN (>89); POTASSIUM 4.2 MEQ/L (3.5-5.1); SODIUM (NA) 139 MEQ/L (136-145); TOTAL BILIRUBIN ADULT 0.2 MG/DL (0.2-1.0)
--- NOTE | 2016-06-08 10:55 | HHI.PYPN ---
Subjective Remarks Patient seen and activities room with nurse Carrillo, chart review, patient calm pleasant with me this morning, continue somewhat confused and disorganized but responding appropriately, compliant meds no behavioral problems at this time Review of Systems Except as stated in HPI: all other systems reviewed are Neg Objective Alert: Yes (somewhat sedated but easily arousable) [place]: Person Mood: Calm (presently calm) Affect: Flat Memory Intact: Comment (not formally assessed) Hallucinations: Other (appears internally preoccupied) Delusions: Yes Delusion Type: Paranoid (decreased) Suicidal: Ideation (no SI voiced) Homicidal: Ideation (no HI voiced) Insight/Judgement Very poor Labs Test 06/08/16 09:16 White Blood Count 5.4 TH/MM3 Red Blood Count 3.71 MIL/MM3 Hemoglobin 11.6 GM/DL Hematocrit 34.5 % Mean Corpuscular Volume 92.9 FL Mean Corpuscular Hemoglobin 31.3 PG Mean Corpuscular Hemoglobin 33.7 % Concent Red Cell Distribution Width 12.6 % Platelet Count 231 TH/MM3 Mean Platelet Volume 7.8 FL Neutrophils (%) (Auto) 73.3 % Lymphocytes (%) (Auto) 18.1 % Monocytes (%) (Auto) 6.8 % Eosinophils (%) (Auto) 1.4 % Basophils (%) (Auto) 0.4 % Neutrophils # (Auto) 4.0 TH/MM3 Lymphocytes # (Auto) 1.0 TH/MM3 Monocytes # (Auto) 0.4 TH/MM3 Eosinophils # (Auto) 0.1 TH/MM3 Basophils # (Auto) 0.0 TH/MM3 CBC Comment DIFF FINAL Differential Comment Sodium Level 139 MEQ/L Potassium Level 4.2 MEQ/L Chloride Level 103 MEQ/L Carbon Dioxide Level 28.8 MEQ/L Anion Gap 7 MEQ/L Blood Urea Nitrogen 29 MG/DL Creatinine 1.32 MG/DL Estimat Glomerular Filtration 39 ML/MIN Rate Random Glucose 114 MG/DL Calcium Level 9.6 MG/DL Total Bilirubin 0.2 MG/DL Aspartate Amino Transf 16 U/L (AST/SGOT) Alanine Aminotransferase 22 U/L (ALT/SGPT) Alkaline Phosphatase 177 U/L Total Protein 7.7 GM/DL Albumin 3.9 GM/DL Vitals/IOs Vital Signs Date Time Temp Pulse Resp B/P Pulse Ox O2 Delivery O2 Flow Rate FiO2 06/08/16 05:32 98.0 75 18 106/55 06/07/16 19:09 96 Intake and Output 06/07/16 06/07/16 06/08/16 08:00 16:00 00:00 Intake Total 240 ml 360 ml Balance 240 ml 360 ml Assessment & Plan Problem List: (1) Dementia with behavioral disturbance ICD Code: F03.91 (2) Schizophrenia ICD Code: F20.9 Assessment & Plan Estimated LOS: days patient continues confused, though somewhat softer in her behaviors at this time. Compliant medications. Justification for Cont. Inpt. At this time the patient will decompensate if placed in a lower level of care Discharge Planning To be determined Request HC Surrog/Guard Advoc?: Yes Problem Qualifiers (1) Dementia with behavioral disturbance: (2) Schizophrenia: Qualified Code: F20.9 - Schizophrenia, unspecified type Alphonso Perez MD Jun 08, 2016 10:54
[2016-06-08 18:36] VITALS: BP 131/51; PULSE 75; RESP 18; TEMP 99; O2SAT 99
[2016-06-08] MEDS: QUEtiapine FUMARATE 100 MG TAB PO SCH (21:30)
[2016-06-08] MEDS: MELATONIN 5 MG TAB PO SCH (21:30)
[2016-06-09] MEDS: traZODone HCL 50 MG TAB PO PRN (01:59)
[2016-06-09] MEDS: ACETAMINOPHEN 325 MG TAB PO PRN (01:59)
[2016-06-09 05:03] VITALS: BP 133/67; PULSE 75; RESP 16; TEMP 98.2
[2016-06-09] MEDS: LEVOTHYROXINE SODIUM 25 MCG TAB PO SCH (06:05)
[2016-06-09] MEDS: risperiDONE 1 MG TAB PO SCH ×2 (09:27→21:15)
[2016-06-09] MEDS: ASPIRIN EC 81 MG TABEC PO SCH (09:27)
[2016-06-09] MEDS: PANTOPRAZOLE SOD 20 MG DELAYED RELEASE TAB PO SCH (09:27)
[2016-06-09] MEDS: amLODIPine BESYLATE 5 MG TAB PO SCH (09:27)
[2016-06-09] MEDS: ESCITALOPRAM OXALATE 20 MG TAB PO SCH (09:27)
--- NOTE | 2016-06-09 12:00 | HHI.PYPN ---
Subjective Remarks Patient seen in day room, with floor staff, chart review, patient hit markedly confused disoriented though no significant behavioral problems at this time, compliant medications, for now continue treatment Review of Systems Except as stated in HPI: all other systems reviewed are Neg Objective Alert: Yes (somewhat sedated but easily arousable) [place]: Person Mood: Calm (presently calm) Affect: Flat Memory Intact: Comment (not formally assessed) Hallucinations: Other (appears internally preoccupied) Delusions: Yes Delusion Type: Paranoid (decreased) Suicidal: Ideation (no SI voiced) Homicidal: Ideation (no HI voiced) Insight/Judgement Very poor Vitals/IOs Vital Signs Date Time Temp Pulse Resp B/P Pulse Ox O2 Delivery O2 Flow Rate FiO2 06/09/16 05:03 98.2 75 16 133/67 06/08/16 18:36 99 Intake and Output 06/08/16 06/08/16 06/09/16 08:00 16:00 00:00 Intake Total 360 ml 720 ml Balance 360 ml 720 ml Assessment & Plan Problem List: (1) Dementia with behavioral disturbance ICD Code: F03.91 (2) Schizophrenia ICD Code: F20.9 Assessment & Plan Estimated LOS: days patient continues demented confused though no significant behavioral problems at this time Justification for Cont. Inpt. At this time patient will decompensate if placed in the lower level of care Discharge Planning To be determined Request HC Surrog/Guard Advoc?: Yes Problem Qualifiers (1) Dementia with behavioral disturbance: (2) Schizophrenia: Qualified Code: F20.9 - Schizophrenia, unspecified type Alphonso Perez MD Jun 09, 2016 12:00
[2016-06-09 19:26] VITALS: BP 125/59; PULSE 74; RESP 17; TEMP 98.5; O2SAT 96
[2016-06-09] MEDS: MELATONIN 5 MG TAB PO SCH (21:15)
[2016-06-09] MEDS: QUEtiapine FUMARATE 100 MG TAB PO SCH (21:15)
[2016-06-10] MEDS: LEVOTHYROXINE SODIUM 25 MCG TAB PO SCH (05:18)
[2016-06-10 05:53] VITALS: BP 113/58; PULSE 85; RESP 18; TEMP 97.9; O2SAT 97
[2016-06-10] MEDS: amLODIPine BESYLATE 5 MG TAB PO SCH (09:00)
[2016-06-10] MEDS: ESCITALOPRAM OXALATE 20 MG TAB PO SCH (09:11)
[2016-06-10] MEDS: PANTOPRAZOLE SOD 20 MG DELAYED RELEASE TAB PO SCH (09:11)
[2016-06-10] MEDS: ASPIRIN EC 81 MG TABEC PO SCH (09:11)
[2016-06-10] MEDS: risperiDONE 1 MG TAB PO SCH ×2 (09:12→20:24)
[2016-06-10] MEDS: hydrOXYzine HCL 50 MG TAB PO PRN (11:00)
[2016-06-10] MEDS: LORazepam 0.5 MG TAB PO PRN (11:00)
--- NOTE | 2016-06-10 14:45 | HHI.PYPN ---
Subjective Remarks Pt seen and discussed with staff. Pt was agitated earlier today but calmed and has been in better behavioral control this afternoon. She reports that she is doing well and denies discomfort. Compliant with medications. No SI/HI. Review of Systems Psychiatric: COMPLAINS OF: Confusion Objective Alert: Yes (somewhat sedated but easily arousable) [place]: Person Mood: Calm (presently calm) Affect: Flat Memory Intact: Comment (not formally assessed) Hallucinations: Other (appears internally preoccupied) Delusions: Yes Delusion Type: Paranoid (decreased) Suicidal: Ideation (no SI voiced) Homicidal: Ideation (no HI voiced) Insight/Judgement poor Vitals/IOs Vital Signs Date Time Temp Pulse Resp B/P Pulse Ox O2 Delivery O2 Flow Rate FiO2 06/10/16 05:53 97.9 85 18 113/58 97 Intake and Output 06/09/16 06/09/16 06/10/16 08:00 16:00 00:00 Intake Total 240 ml 1250 ml 1200 ml Balance 240 ml 1250 ml 1200 ml Assessment & Plan Problem List: (1) Dementia with behavioral disturbance ICD Code: F03.91 (2) Schizophrenia ICD Code: F20.9 Assessment & Plan Continue current tx plan. Estimated LOS: days Justification for Cont. Inpt. impairments in self care, risk of decompensation Request HC Surrog/Guard Advoc?: Yes Problem Qualifiers (1) Dementia with behavioral disturbance: (2) Schizophrenia: Qualified Code: F20.9 - Schizophrenia, unspecified type Stephani Escobar MD Jun 10, 2016 14:45
[2016-06-10 19:00] VITALS: BP 138/72; PULSE 83; RESP 18; TEMP 97.8; O2SAT 97
[2016-06-10] MEDS: QUEtiapine FUMARATE 100 MG TAB PO SCH (20:24)
[2016-06-10] MEDS: MELATONIN 5 MG TAB PO SCH (20:24)
[2016-06-11 05:04] VITALS: BP 123/59; PULSE 69; RESP 18; TEMP 98.2; O2SAT 99
[2016-06-11] MEDS: LEVOTHYROXINE SODIUM 25 MCG TAB PO SCH (05:46)
[2016-06-11] MEDS: amLODIPine BESYLATE 5 MG TAB PO SCH ×2 (08:36→08:37)
[2016-06-11] MEDS: risperiDONE 1 MG TAB PO SCH ×2 (08:36→20:56)
[2016-06-11] MEDS: ASPIRIN EC 81 MG TABEC PO SCH (08:36)
[2016-06-11] MEDS: PANTOPRAZOLE SOD 20 MG DELAYED RELEASE TAB PO SCH (08:36)
[2016-06-11] MEDS: ESCITALOPRAM OXALATE 20 MG TAB PO SCH (08:36)
[2016-06-11] MEDS: LORazepam 0.5 MG TAB PO PRN (08:43)
--- NOTE | 2016-06-11 15:28 | HHI.PYPN ---
Subjective Remarks Pt seen and discussed with staff. She is having a good day today and has not had any agitation or disruptive behavior. She describes mood as "happy". She is compliant with treatment. No SI/HI. Objective Alert: Yes (somewhat sedated but easily arousable) [place]: Person Mood: Calm (presently calm) Affect: Flat Memory Intact: Comment (not formally assessed) Hallucinations: Other (appears internally preoccupied) Delusions: Yes Delusion Type: Paranoid (decreased) Suicidal: Ideation (no SI voiced) Homicidal: Ideation (no HI voiced) Insight/Judgement poor Vitals/IOs Vital Signs Date Time Temp Pulse Resp B/P Pulse Ox O2 Delivery O2 Flow Rate FiO2 06/11/16 05:04 98.2 69 18 123/59 99 Intake and Output 06/10/16 06/10/16 06/11/16 08:00 16:00 00:00 Intake Total 480 ml 1440 ml 840 ml Balance 480 ml 1440 ml 840 ml Assessment & Plan Problem List: (1) Dementia with behavioral disturbance ICD Code: F03.91 (2) Schizophrenia ICD Code: F20.9 Assessment & Plan Continue current tx plan. Estimated LOS: days Justification for Cont. Inpt. impairments in self care Request HC Surrog/Guard Advoc?: Yes Problem Qualifiers (1) Dementia with behavioral disturbance: (2) Schizophrenia: Qualified Code: F20.9 - Schizophrenia, unspecified type Stephani Escobar MD Jun 11, 2016 15:28
[2016-06-11 19:25] VITALS: BP 153/72; PULSE 74; RESP 16; TEMP 98.3
[2016-06-11] MEDS: MELATONIN 5 MG TAB PO SCH (20:56)
[2016-06-11] MEDS: QUEtiapine FUMARATE 100 MG TAB PO SCH (20:56)
[2016-06-12 05:09] VITALS: BP 106/54; PULSE 70; RESP 18; TEMP 98.2; O2SAT 98
[2016-06-12] MEDS: LEVOTHYROXINE SODIUM 25 MCG TAB PO SCH (05:37)
[2016-06-12] MEDS: ASPIRIN EC 81 MG TABEC PO SCH (08:45)
[2016-06-12] MEDS: amLODIPine BESYLATE 5 MG TAB PO SCH (08:45)
[2016-06-12] MEDS: ESCITALOPRAM OXALATE 20 MG TAB PO SCH (08:45)
[2016-06-12] MEDS: risperiDONE 1 MG TAB PO SCH ×2 (08:45→20:49)
[2016-06-12] MEDS: PANTOPRAZOLE SOD 20 MG DELAYED RELEASE TAB PO SCH (08:45)
--- NOTE | 2016-06-12 15:23 | HHI.PYPN ---
Subjective Remarks Patient discussed with treatment team and medical student Lisa, chart reviewed, patient seen on unit. Patient continues markedly confused disoriented though no significant behavioral problems at this time. Compliant medications Review of Systems Except as stated in HPI: all other systems reviewed are Neg Objective Alert: Yes (somewhat sedated but easily arousable) [place]: Person Mood: Calm (presently calm) Affect: Flat Memory Intact: Comment (not formally assessed) Hallucinations: Other (appears internally preoccupied) Delusions: Yes Delusion Type: Paranoid (decreased) Suicidal: Ideation (no SI voiced) Homicidal: Ideation (no HI voiced) Insight/Judgement Very poor Vitals/IOs Vital Signs Date Time Temp Pulse Resp B/P Pulse Ox O2 Delivery O2 Flow Rate FiO2 06/12/16 05:09 98.2 70 18 106/54 98 Intake and Output 06/11/16 06/11/16 06/12/16 08:00 16:00 00:00 Intake Total 240 ml 1440 ml Balance 240 ml 1440 ml Assessment & Plan Problem List: (1) Dementia with behavioral disturbance ICD Code: F03.91 (2) Schizophrenia ICD Code: F20.9 Assessment & Plan Estimated LOS: days patient continues confused demented, compliant medications. Placement remains problematic Justification for Cont. Inpt. At this time patient will decompensate if placed in a lower level of care Discharge Planning To be determined Request HC Surrog/Guard Advoc?: Yes Problem Qualifiers (1) Dementia with behavioral disturbance: (2) Schizophrenia: Qualified Code: F20.9 - Schizophrenia, unspecified type Alphonso Perez MD Jun 12, 2016 15:23
[2016-06-12 18:12] VITALS: BP 163/70; PULSE 72; RESP 18; TEMP 98.4; O2SAT 100
[2016-06-12] MEDS: QUEtiapine FUMARATE 100 MG TAB PO SCH (20:49)
[2016-06-12] MEDS: MELATONIN 5 MG TAB PO SCH (20:49)
[2016-06-13] MEDS: LEVOTHYROXINE SODIUM 25 MCG TAB PO SCH (05:57)
[2016-06-13 06:05] VITALS: BP 148/72; PULSE 70; RESP 16; TEMP 97.3; O2SAT 100
[2016-06-13] MEDS: risperiDONE 1 MG TAB PO SCH ×2 (08:43→20:26)
[2016-06-13] MEDS: PANTOPRAZOLE SOD 20 MG DELAYED RELEASE TAB PO SCH (08:43)
[2016-06-13] MEDS: ASPIRIN EC 81 MG TABEC PO SCH (08:43)
[2016-06-13] MEDS: amLODIPine BESYLATE 5 MG TAB PO SCH (08:43)
[2016-06-13] MEDS: ESCITALOPRAM OXALATE 20 MG TAB PO SCH (08:43)
--- NOTE | 2016-06-13 13:11 | HHI.PYPN ---
Subjective Remarks Patient seen in day room with nurse Eduin and medical student Hamida, chart reviewed, patient calm pleasant continues pleasantly confused though no behavioral problem. Compliant medications. Review of Systems Except as stated in HPI: all other systems reviewed are Neg Objective Alert: Yes (somewhat sedated but easily arousable) [place]: Person Mood: Calm (presently calm) Affect: Flat Memory Intact: Comment (not formally assessed) Hallucinations: Other (appears internally preoccupied) Delusions: Yes Delusion Type: Paranoid (decreased) Suicidal: Ideation (no SI voiced) Homicidal: Ideation (no HI voiced) Insight/Judgement Very poor Vitals/IOs Vital Signs Date Time Temp Pulse Resp B/P Pulse Ox O2 Delivery O2 Flow Rate FiO2 06/13/16 06:05 97.3 70 16 148/72 100 Intake and Output 06/12/16 06/12/16 06/13/16 08:00 16:00 00:00 Intake Total 1530 ml 720 ml Balance 1530 ml 720 ml Assessment & Plan Problem List: (1) Dementia with behavioral disturbance ICD Code: F03.91 (2) Schizophrenia ICD Code: F20.9 Assessment & Plan Estimated LOS: days patient continues confused demented, though no behavior problems at this time. Compliant medications. Justification for Cont. Inpt. At this time patient would significantly decompensated if placed in a lower level of care Discharge Planning To be determined Request HC Surrog/Guard Advoc?: Yes Problem Qualifiers (1) Dementia with behavioral disturbance: (2) Schizophrenia: Qualified Code: F20.9 - Schizophrenia, unspecified type Alphonso Perez MD Jun 13, 2016 13:11
[2016-06-13 19:25] VITALS: BP 160/71; PULSE 71; RESP 16; TEMP 97.1; O2SAT 100
[2016-06-13] MEDS: MELATONIN 5 MG TAB PO SCH (20:27)
[2016-06-13] MEDS: QUEtiapine FUMARATE 100 MG TAB PO SCH (20:27)
[2016-06-14 05:39] VITALS: BP 117/58; PULSE 78; RESP 14; TEMP 99.7; O2SAT 97
[2016-06-14] MEDS: LEVOTHYROXINE SODIUM 25 MCG TAB PO SCH (05:47)
[2016-06-14] MEDS: risperiDONE 1 MG TAB PO SCH ×2 (08:32→20:22)
[2016-06-14] MEDS: amLODIPine BESYLATE 5 MG TAB PO SCH (08:32)
[2016-06-14] MEDS: PANTOPRAZOLE SOD 20 MG DELAYED RELEASE TAB PO SCH (08:32)
[2016-06-14] MEDS: ESCITALOPRAM OXALATE 20 MG TAB PO SCH (08:32)
[2016-06-14] MEDS: ASPIRIN EC 81 MG TABEC PO SCH (08:32)
--- NOTE | 2016-06-14 10:59 | HHI.PYPN ---
Subjective Remarks Patient seen in day room with nurse Eduin, patient calm pleasantly confused, no behavior problems. Compliant medications. Denies suicidality homicidality voices or visions. Review of Systems Except as stated in HPI: all other systems reviewed are Neg Objective Alert: Yes (somewhat sedated but easily arousable) [place]: Person Mood: Calm (presently calm) Affect: Flat Memory Intact: Comment (not formally assessed) Hallucinations: Other (appears internally preoccupied) Delusions: Yes Delusion Type: Paranoid (decreased) Suicidal: Ideation (no SI voiced) Homicidal: Ideation (no HI voiced) Insight/Judgement Very poor Vitals/IOs Vital Signs Date Time Temp Pulse Resp B/P Pulse Ox O2 Delivery O2 Flow Rate FiO2 06/14/16 05:39 99.7 78 14 117/58 97 Intake and Output 06/13/16 06/13/16 06/14/16 08:00 16:00 00:00 Intake Total 240 ml 480 ml 1800 ml Balance 240 ml 480 ml 1800 ml Assessment & Plan Problem List: (1) Dementia with behavioral disturbance ICD Code: F03.91 (2) Schizophrenia ICD Code: F20.9 Assessment & Plan Estimated LOS: days patient continues demented confuse the no behavioral problems, compliant medications. For now continue treatment Justification for Cont. Inpt. At this time patient will decompensate if placed at a lower level of care Discharge Planning To be determined Request HC Surrog/Guard Advoc?: Yes Problem Qualifiers (1) Dementia with behavioral disturbance: (2) Schizophrenia: Qualified Code: F20.9 - Schizophrenia, unspecified type Alphonso Perez MD Jun 14, 2016 10:59
[2016-06-14] MEDS: LORazepam 0.5 MG TAB PO PRN (16:19)
[2016-06-14] MEDS: hydrOXYzine HCL 50 MG TAB PO PRN (16:19)
[2016-06-14 18:02] VITALS: BP 145/63; PULSE 74; RESP 18; TEMP 99.4; O2SAT 99
[2016-06-14] MEDS: diphenhydrAMINE HCL 50 MG CAP - HS PRN PO (20:21)
[2016-06-14] MEDS: MELATONIN 5 MG TAB PO SCH (20:21)
[2016-06-14] MEDS: QUEtiapine FUMARATE 100 MG TAB PO SCH (20:22)
[2016-06-15 06:13] VITALS: BP 124/58; PULSE 90; RESP 16; TEMP 97.9; O2SAT 100
[2016-06-15] MEDS: LEVOTHYROXINE SODIUM 25 MCG TAB PO SCH (06:29)
[2016-06-15] MEDS: PANTOPRAZOLE SOD 20 MG DELAYED RELEASE TAB PO SCH (09:24)
[2016-06-15] MEDS: ASPIRIN EC 81 MG TABEC PO SCH (09:25)
[2016-06-15] MEDS: risperiDONE 1 MG TAB PO SCH ×2 (09:25→20:36)
[2016-06-15] MEDS: amLODIPine BESYLATE 5 MG TAB PO SCH (09:25)
[2016-06-15] MEDS: ESCITALOPRAM OXALATE 20 MG TAB PO SCH (09:25)
--- NOTE | 2016-06-15 14:38 | HHI.PYPN ---
Subjective Remarks Patient seen in day room with nurse Maria Alejandra and medical student Hamida, chart reviewed, patient continues to show her diffuse confusion disorganization though her affect his calm but no significant behavioral problems at this time. Patient compliant medications Review of Systems Except as stated in HPI: all other systems reviewed are Neg Objective Alert: Yes (somewhat sedated but easily arousable) [place]: Person Mood: Calm (presently calm) Affect: Flat Memory Intact: Comment (not formally assessed) Hallucinations: Other (appears internally preoccupied) Delusions: Yes Delusion Type: Paranoid (decreased) Suicidal: Ideation (no SI voiced) Homicidal: Ideation (no HI voiced) Insight/Judgement Very poor Vitals/IOs Vital Signs Date Time Temp Pulse Resp B/P Pulse Ox O2 Delivery O2 Flow Rate FiO2 06/15/16 06:13 97.9 90 16 124/58 100 Intake and Output 06/14/16 06/14/16 06/15/16 08:00 16:00 00:00 Intake Total 240 ml 480 ml 1080 ml Balance 240 ml 480 ml 1080 ml Assessment & Plan Problem List: (1) Dementia with behavioral disturbance ICD Code: F03.91 (2) Schizophrenia ICD Code: F20.9 Assessment & Plan Estimated LOS: days patient continues confused and demented, though no significant behavioral problems at this time compliant medications Justification for Cont. Inpt. At this time patient will decompensate placed in a lower level of care Discharge Planning Be determined Request HC Surrog/Guard Advoc?: Yes Problem Qualifiers (1) Dementia with behavioral disturbance: (2) Schizophrenia: Qualified Code: F20.9 - Schizophrenia, unspecified type Alphonso Perez MD Jun 15, 2016 14:38
[2016-06-15] MEDS: LORazepam 0.5 MG TAB PO PRN (15:26)
[2016-06-15 19:14] VITALS: BP 152/69; PULSE 71; RESP 16; TEMP 97.7
[2016-06-15] MEDS: QUEtiapine FUMARATE 100 MG TAB PO SCH (20:36)
[2016-06-15] MEDS: MELATONIN 5 MG TAB PO SCH (20:36)
[2016-06-15] MEDS: diphenhydrAMINE HCL 50 MG CAP - HS PRN PO (20:36)
[2016-06-16 05:07] VITALS: BP 107/51; PULSE 70; RESP 18; TEMP 98.2; O2SAT 98
[2016-06-16] MEDS: LEVOTHYROXINE SODIUM 25 MCG TAB PO SCH (05:18)
[2016-06-16] MEDS: LORazepam 2 MG/ML VIAL IM PRN (08:37)
[2016-06-16] MEDS: amLODIPine BESYLATE 5 MG TAB PO SCH (08:39)
[2016-06-16] MEDS: PANTOPRAZOLE SOD 20 MG DELAYED RELEASE TAB PO SCH (08:40)
[2016-06-16] MEDS: ESCITALOPRAM OXALATE 20 MG TAB PO SCH (08:40)
[2016-06-16] MEDS: risperiDONE 1 MG TAB PO SCH ×2 (08:40→21:05)
[2016-06-16] MEDS: ASPIRIN EC 81 MG TABEC PO SCH (08:41)
[2016-06-16 09:56] VITALS: BP 121/58; PULSE 71
--- NOTE | 2016-06-16 12:22 | HHI.PYPN ---
Subjective Remarks Patient seen in dayroom with floor staff and medical student Hamida, patient continues to need some infrequent when necessary Norma Ativan for some missed behaviors, though she is calm pleasant confused with me. Will add scheduled Ativan 1 mg 9 AM, 3 PM, and 9 PM. Counselor continues to work on placement Review of Systems Except as stated in HPI: all other systems reviewed are Neg Objective Alert: Yes (somewhat sedated but easily arousable) [place]: Person Mood: Calm (presently calm) Affect: Flat Memory Intact: Comment (not formally assessed) Hallucinations: Other (appears internally preoccupied) Delusions: Yes Delusion Type: Paranoid (decreased) Suicidal: Ideation (no SI voiced) Homicidal: Ideation (no HI voiced) Insight/Judgement Very poor Vitals/IOs Vital Signs Date Time Temp Pulse Resp B/P Pulse Ox O2 Delivery O2 Flow Rate FiO2 06/16/16 09:56 71 121/58 06/16/16 05:07 98.2 18 98 Intake and Output 06/15/16 06/15/16 06/16/16 08:00 16:00 00:00 Intake Total 0 ml 960 ml 480 ml Balance 0 ml 960 ml 480 ml Assessment & Plan Problem List: (1) Dementia with behavioral disturbance ICD Code: F03.91 (2) Schizophrenia ICD Code: F20.9 Assessment & Plan Estimated LOS: days she continues confused somewhat disorganized staff it noted some help with scheduled Ativan will schedule Ativan 1 mg 9 AM 3 PM and 9 PM Justification for Cont. Inpt. At this time patient would decompensate placed in a lower level of care Discharge Planning To be determined Request HC Surrog/Guard Advoc?: Yes Problem Qualifiers (1) Dementia with behavioral disturbance: (2) Schizophrenia: Qualified Code: F20.9 - Schizophrenia, unspecified type Alphonso Perez MD Jun 16, 2016 12:22
[2016-06-16] MEDS: diphenhydrAMINE HCL 50 MG CAP - HS PRN PO (12:29)
[2016-06-16] MEDS: LORazepam 1 MG TAB PO SCH ×2 (15:00→21:06)
[2016-06-16 18:37] VITALS: BP 156/74; PULSE 74; RESP 18; TEMP 98.4; O2SAT 100
[2016-06-16] MEDS: MELATONIN 5 MG TAB PO SCH (21:06)
[2016-06-16] MEDS: traZODone HCL 50 MG TAB PO PRN (21:06)
[2016-06-16] MEDS: QUEtiapine FUMARATE 100 MG TAB PO SCH (21:06)
[2016-06-17] MEDS: LEVOTHYROXINE SODIUM 25 MCG TAB PO SCH (06:32)
[2016-06-17] MEDS: amLODIPine BESYLATE 5 MG TAB PO SCH (08:46)
[2016-06-17] MEDS: risperiDONE 1 MG TAB PO SCH ×2 (08:46→20:18)
[2016-06-17] MEDS: ASPIRIN EC 81 MG TABEC PO SCH (08:46)
[2016-06-17] MEDS: LORazepam 1 MG TAB PO SCH ×3 (08:46→20:18)
[2016-06-17] MEDS: PANTOPRAZOLE SOD 20 MG DELAYED RELEASE TAB PO SCH (08:46)
[2016-06-17] MEDS: ESCITALOPRAM OXALATE 20 MG TAB PO SCH (08:46)
--- NOTE | 2016-06-17 12:30 | HHI.PYPN ---
Subjective Remarks Patient is pleasant and cooperative with exam. She is compliant with her medications. She is empathetic with poor eye contact and not interested in the interview. Alert and oriented 1. Per nursing looking forward to a possible discharge next week. Denies auditory or visual hallucinations Objective Alert: Yes (somewhat sedated but easily arousable) [place]: Person Mood: Calm (presently calm) Affect: Flat Memory Intact: Comment (not formally assessed) Hallucinations: Other (appears internally preoccupied) Delusions: Yes Delusion Type: Paranoid (decreased) Suicidal: Ideation (no SI voiced) Homicidal: Ideation (no HI voiced) Insight/Judgement Poor Vitals/IOs Vital Signs Date Time Temp Pulse Resp B/P Pulse Ox O2 Delivery O2 Flow Rate FiO2 06/16/16 18:37 98.4 74 18 156/74 100 Intake and Output 06/16/16 06/16/16 06/17/16 08:00 16:00 00:00 Intake Total 720 ml 1500 ml Balance 720 ml 1500 ml Assessment & Plan Problem List: (1) Dementia with behavioral disturbance ICD Code: F03.91 (2) Schizophrenia ICD Code: F20.9 Assessment & Plan Continue current treatment plan Justification for Cont. Inpt. Patient will decompensate in a less restrictive setting Request HC Surrog/Guard Advoc?: Yes Problem Qualifiers (1) Dementia with behavioral disturbance: (2) Schizophrenia: Qualified Code: F20.9 - Schizophrenia, unspecified type Zeus Hill DO Jun 17, 2016 12:30
[2016-06-17 20:08] VITALS: BP 146/69; PULSE 71; RESP 16; TEMP 98; O2SAT 100
[2016-06-17] MEDS: MELATONIN 5 MG TAB PO SCH (20:18)
[2016-06-17] MEDS: QUEtiapine FUMARATE 100 MG TAB PO SCH (20:18)
[2016-06-17] MEDS: diphenhydrAMINE HCL 50 MG CAP - HS PRN PO (20:18)
[2016-06-18] MEDS: LEVOTHYROXINE SODIUM 25 MCG TAB PO SCH (05:41)
[2016-06-18 05:49] VITALS: BP 113/55; PULSE 72; RESP 16; TEMP 97.6; O2SAT 97
[2016-06-18 08:37] VITALS: BP 113/55; PULSE 72; RESP 16; TEMP 97.6; O2SAT 97
[2016-06-18] MEDS: ESCITALOPRAM OXALATE 20 MG TAB PO SCH (08:52)
[2016-06-18] MEDS: PANTOPRAZOLE SOD 20 MG DELAYED RELEASE TAB PO SCH (08:52)
[2016-06-18] MEDS: risperiDONE 1 MG TAB PO SCH ×2 (08:52→20:36)
[2016-06-18] MEDS: ASPIRIN EC 81 MG TABEC PO SCH (08:52)
[2016-06-18] MEDS: LORazepam 1 MG TAB PO SCH ×3 (08:52→20:36)
[2016-06-18] MEDS: amLODIPine BESYLATE 5 MG TAB PO SCH (08:52)
--- NOTE | 2016-06-18 15:30 | HHI.PYPN ---
Subjective Remarks Patient was seen and case discussed with nursing. Patient is apathetic with poor eye contact. Alert and oriented 1. Compliant with medications and behaving well on the unit. Denies suicidal ideations intent or plan. Objective Alert: Yes (somewhat sedated but easily arousable) [place]: Person Mood: Calm (presently calm) Affect: Flat Memory Intact: Comment (not formally assessed) Hallucinations: Other (appears internally preoccupied) Delusions: Yes Delusion Type: Paranoid (decreased) Suicidal: Ideation (no SI voiced) Homicidal: Ideation (no HI voiced) Insight/Judgement Poor Vitals/IOs Vital Signs Date Time Temp Pulse Resp B/P Pulse Ox O2 Delivery O2 Flow Rate FiO2 06/18/16 08:37 97.6 72 16 113/55 97 Intake and Output 06/17/16 06/17/16 06/18/16 08:00 16:00 00:00 Intake Total 0 ml 1920 ml 840 ml Balance 0 ml 1920 ml 840 ml Assessment & Plan Problem List: (1) Dementia with behavioral disturbance ICD Code: F03.91 (2) Schizophrenia ICD Code: F20.9 Assessment & Plan Continue current treatment plan Justification for Cont. Inpt. Patient will decompensate in a less restrictive setting Request HC Surrog/Guard Advoc?: Yes Problem Qualifiers (1) Dementia with behavioral disturbance: (2) Schizophrenia: Qualified Code: F20.9 - Schizophrenia, unspecified type Zeus Hill DO Jun 18, 2016 15:30
[2016-06-18 18:25] VITALS: BP 134/61; PULSE 71; RESP 16; TEMP 99.6; O2SAT 100
[2016-06-18] MEDS: MELATONIN 5 MG TAB PO SCH (20:36)
[2016-06-18] MEDS: QUEtiapine FUMARATE 100 MG TAB PO SCH (20:37)
[2016-06-19 05:50] VITALS: BP 147/67; PULSE 73; RESP 15; TEMP 98.3; O2SAT 94
[2016-06-19] MEDS: LEVOTHYROXINE SODIUM 25 MCG TAB PO SCH (06:06)
[2016-06-19] MEDS: amLODIPine BESYLATE 5 MG TAB PO SCH (09:21)
[2016-06-19] MEDS: LORazepam 1 MG TAB PO SCH ×3 (09:21→20:39)
[2016-06-19] MEDS: risperiDONE 1 MG TAB PO SCH ×2 (09:21→20:39)
[2016-06-19] MEDS: ESCITALOPRAM OXALATE 20 MG TAB PO SCH (09:21)
[2016-06-19] MEDS: ASPIRIN EC 81 MG TABEC PO SCH (09:21)
[2016-06-19] MEDS: PANTOPRAZOLE SOD 20 MG DELAYED RELEASE TAB PO SCH (09:21)
--- NOTE | 2016-06-19 17:08 | HHI.PYPN ---
Subjective Remarks Patient discussed with treatment team and medical student Hamida, chart reviewed, patient seen on unit. Patient continues markedly confused and disorganized and wandering, but today is is calm with me. Review of Systems Except as stated in HPI: all other systems reviewed are Neg Objective Alert: Yes (somewhat sedated but easily arousable) [place]: Person Mood: Calm (presently calm) Affect: Flat Memory Intact: Comment (not formally assessed) Hallucinations: Other (appears internally preoccupied) Delusions: Yes Delusion Type: Paranoid (decreased) Suicidal: Ideation (no SI voiced) Homicidal: Ideation (no HI voiced) Insight/Judgement Very poor Vitals/IOs Vital Signs Date Time Temp Pulse Resp B/P Pulse Ox O2 Delivery O2 Flow Rate FiO2 06/19/16 05:50 98.3 73 15 147/67 94 Intake and Output 06/18/16 06/18/16 06/19/16 08:00 16:00 00:00 Intake Total 240 ml 1080 ml 870 ml Balance 240 ml 1080 ml 870 ml Assessment & Plan Problem List: (1) Dementia with behavioral disturbance ICD Code: F03.91 (2) Schizophrenia ICD Code: F20.9 Assessment & Plan Estimated LOS: days patient continues demented confused wandering. Compliant medications. Justification for Cont. Inpt. At this time patient will decompensate if placed in a lower level of care Discharge Planning To be determined Request HC Surrog/Guard Advoc?: Yes Problem Qualifiers (1) Dementia with behavioral disturbance: (2) Schizophrenia: Qualified Code: F20.9 - Schizophrenia, unspecified type Alphonso Perez MD Jun 19, 2016 17:07
[2016-06-19 18:00] VITALS: BP 113/77; PULSE 99; RESP 15; O2SAT 94
[2016-06-19] MEDS: MELATONIN 5 MG TAB PO SCH (20:39)
[2016-06-19] MEDS: QUEtiapine FUMARATE 100 MG TAB PO SCH (20:39)
[2016-06-20] MEDS: LEVOTHYROXINE SODIUM 25 MCG TAB PO SCH (05:17)
[2016-06-20 05:30] VITALS: BP 123/58; PULSE 70; RESP 15; TEMP 98; O2SAT 96
[2016-06-20] MEDS: ASPIRIN EC 81 MG TABEC PO SCH (10:17)
[2016-06-20] MEDS: ESCITALOPRAM OXALATE 20 MG TAB PO SCH (10:17)
[2016-06-20] MEDS: risperiDONE 1 MG TAB PO SCH ×2 (10:18→21:17)
[2016-06-20] MEDS: LORazepam 1 MG TAB PO SCH ×3 (10:18→21:17)
[2016-06-20] MEDS: amLODIPine BESYLATE 5 MG TAB PO SCH (10:18)
[2016-06-20] MEDS: PANTOPRAZOLE SOD 20 MG DELAYED RELEASE TAB PO SCH (10:18)
--- NOTE | 2016-06-20 10:23 | HHI.PYPN ---
Subjective Remarks Patient seen in day room with nurse Maria Alejandra and medical student Hamida, chart review, patient calm pleasant with me though continues diffusely confused. Compliant medications. Continue to await documents to proceed with placement issues Review of Systems Except as stated in HPI: all other systems reviewed are Neg Objective Alert: Yes (somewhat sedated but easily arousable) [place]: Person Mood: Calm (presently calm) Affect: Flat Memory Intact: Comment (not formally assessed) Hallucinations: Other (appears internally preoccupied) Delusions: Yes Delusion Type: Paranoid (decreased) Suicidal: Ideation (no SI voiced) Homicidal: Ideation (no HI voiced) Insight/Judgement Very poor Vitals/IOs Vital Signs Date Time Temp Pulse Resp B/P Pulse Ox O2 Delivery O2 Flow Rate FiO2 06/20/16 05:30 98.0 70 15 123/58 96 Intake and Output 06/19/16 06/19/16 06/20/16 08:00 16:00 00:00 Intake Total 0 ml 720 ml Balance 0 ml 720 ml Assessment & Plan Problem List: (1) Dementia with behavioral disturbance ICD Code: F03.91 (2) Schizophrenia ICD Code: F20.9 Assessment & Plan Estimated LOS: days patient continues confused and demented, though behaviors appear to stabilize somewhat, compliant medications. For now continue treatment Justification for Cont. Inpt. In this time patient will decompensate with placement a lower level of care Discharge Planning To be determined Request HC Surrog/Guard Advoc?: Yes Problem Qualifiers (1) Dementia with behavioral disturbance: (2) Schizophrenia: Qualified Code: F20.9 - Schizophrenia, unspecified type Alphonso Perez MD Jun 20, 2016 10:23
[2016-06-20 20:25] VITALS: BP 180/77; PULSE 69; RESP 16; TEMP 97.8; O2SAT 100
[2016-06-20] MEDS: MELATONIN 5 MG TAB PO SCH (21:17)
[2016-06-20] MEDS: QUEtiapine FUMARATE 100 MG TAB PO SCH (21:17)
[2016-06-21 05:32] VITALS: BP 114/60; PULSE 68; RESP 16; TEMP 98.3; O2SAT 96
[2016-06-21] MEDS: LEVOTHYROXINE SODIUM 25 MCG TAB PO SCH (05:55)
[2016-06-21] MEDS: amLODIPine BESYLATE 5 MG TAB PO SCH (08:21)
[2016-06-21] MEDS: LORazepam 1 MG TAB PO SCH ×2 (08:21→14:20)
[2016-06-21] MEDS: ESCITALOPRAM OXALATE 20 MG TAB PO SCH (08:21)
[2016-06-21] MEDS: ASPIRIN EC 81 MG TABEC PO SCH (08:21)
[2016-06-21] MEDS: PANTOPRAZOLE SOD 20 MG DELAYED RELEASE TAB PO SCH (08:21)
[2016-06-21] MEDS: risperiDONE 1 MG TAB PO SCH (08:22)
[2016-06-21] MEDS ORDERED: PANT20 PO (11:33)
[2016-06-21] MEDS ORDERED: ASPI81TA11 PO (11:33)
[2016-06-21] MEDS ORDERED: AMLO5 PO (11:33)
[2016-06-21] MEDS ORDERED: RISP4TAB41 PO (11:33)
[2016-06-21] MEDS ORDERED: MELA1TAB22 PO (11:33)
[2016-06-21] MEDS ORDERED: LEVO25TA4 PO (11:33)
[2016-06-21] MEDS ORDERED: SERO400T PO (11:33)
[2016-06-21] MEDS ORDERED: SITA25 PO (11:33)
[2016-06-21] MEDS ORDERED: LORA-474 PO (11:33)
[2016-06-21] MEDS ORDERED: ESCI20TA PO (11:33)
--- NOTE | 2016-06-21 11:38 | HHI.DS ---
Psychiatry Discharge Summary Inpatient Psychiatric care?: Yes Advance Directive: Yes Reason Not Provided: declined Mental Health AdvanceDirective: No Health Care Proxy: No Admission Admission Date May 12, 2016 at 17:52 Admission Diagnosis: (1) Dementia with behavioral disturbance ICD Code: F03.91 Brief History Pt seen and discussed with staff. Chart reviewed. Pt is known to [facility] via previous psychiatric admissions. She presents on a BA alleging that pt has decompensated since return to [facility] and has been aggressive to staff and residents. Pt has had periods of agitation since admission. She appears to be responding to internal stimuli at times. She denies SI/HI and denies medication side effects. She is compliant with medications. Tobacco Use In Past 30 Days: No Tobacco Past 30 Days Alcohol Use: Never Hospital Course Patient's hospital course was initially somewhat chaotic with behavioral issues irritability yelling and intrusiveness. However as she became more compliant with medications with the addition of the schedule Ativan patient behavior softened her confusion, cognitive deficits, softened she became more, cooperative with staff interventions. Patient has been screened by [facility] they feel she has appropriate for their facility is a bed available today at their facility. Patient met maximum benefit of this hospitalization thus will be discharged today to [facility] Rx 1 month follow-up mental health services through that facility Results Blood Pressure 114 / 60 Vital Signs Date Time Temp Pulse Resp B/P Pulse Ox O2 Delivery O2 Flow Rate FiO2 06/21/16 05:32 98.3 68 16 114/60 96 Please see EMR for full lab results Summary of Procedures None done Pending results at discharge: No Medications # of Antipsychotic meds at D/C: 2 Appropriate >1 Antipsych meds?: 1 Approp Antipsych med options 1 - Minimum of three failed multiple trials of monotherapy. 2 - Documented plan to taper to monotherapy due to previous use of multiple meds OR cross-taper in progress at D/C. 3 - Documentation of augmentation of Clozapine. 4 - Justification other than those listed in allowable values 1-3, document here : Discharge Discharge Date: Jun 21, 2016 Discharge Diagnosis: (1) Dementia with behavioral disturbance Diagnosis: Principal ICD Code: F03.91 (2) Schizophrenia Diagnosis: Secondary ICD Code: F20.9 Mental Status Exam at Disch Alert diffusely confused [place] female appears stated age sitting calmly with us she has normal active, speech markedly disorganized somewhat rapid tangential circumstantial. Mood is euthymic to somewhat irritable affect show slight increase range intensity. The auditory or visual hallucinations no delusions noted insight and judgment is quite poor cognition is marginal Pt Condition on Discharge: Stable Discharge Disposition: Discharge to SNF Discharge Instructions Diet Instructions: As Tolerated, No Restrictions Activities you can perform: Regular-No Restrictions Scheduled Appointment: follow-up [facility] also for mental health follow-up Discharge Time > 30 minutes Discharge/Advance Care Plan Health Problems: (1) Dementia with behavioral disturbance (2) Schizophrenia Goals to promote your health * To prevent worsening of your condition and complications * To maintain your health at the optimal level Directions to meet your goals Take your medications as prescribed Follow your dietary instruction Follow activity as directed Keep your appointments as scheduled Take your immunizations and boosters as scheduled If your symptoms worsen call your PCP, if no PCP go to Urgent Care Center or Emergency Room For 27/11 questions related to your inpatient stay or results of tests pending at discharge, please contact Dr. Alphonso Perez at Smoking is Dangerous to Your Health. Avoid second hand smoking Problem Qualifiers (1) Dementia with behavioral disturbance: (2) Schizophrenia: Qualified Code: F20.9 - Schizophrenia, unspecified type Alphonso Perez MD Jun 21, 2016 11:38
[2016-06-21] MEDS: LORazepam 2 MG/ML VIAL IM PRN (16:13)
== END 2016-06-21 17:50 | DRG 884 ==
LOC: NEPC 14:15 → H250 17:52 → H270 05-23 08:25 → H250 05-24 09:35
PROVIDERS: ADMIT Psychiatry & Neurology Psychiatry; ATTEND Psychiatry & Neurology Psychiatry
DX: F03.91 Unspecified dementia, unspecified severity, with behavioral disturbance (principal); E11.22 Type 2 diabetes mellitus with diabetic chronic kidney disease; N18.3 Chronic kidney disease, stage 3 (moderate); E03.9 Hypothyroidism, unspecified; F20.9 Schizophrenia, unspecified; I12.9 Hypertensive chronic kidney disease with stage 1 through stage 4 chronic kidney disease, or unspecified chronic kidney disease; K59.00 Constipation, unspecified; I25.10 Atherosclerotic heart disease of native coronary artery without angina pectoris; Z79.84 Long term (current) use of oral hypoglycemic drugs
CPT/HCPCS: 80048; 80053; 80061; 82948; 83036; 85025; 99284; J1200; J1630; J2060; Q0163